=== PATIENT | female | born 1940 | race Caucasian/White ===

== ENCOUNTER → 2016-07-08 | Outpatient (CLI) | payer MEDICARE, MEDICAID | LOC: RAD 08:19 | PROVIDERS: ATTEND Internal Medicine | DX: C34.12 Malignant neoplasm of upper lobe, left bronchus or lung (principal) | CPT/HCPCS: 71260; 74177 ==

== ENCOUNTER → 2016-07-26 | Outpatient (CLI) | payer MEDICARE, MEDICAID | LOC: OD 11:41 | PROVIDERS: ATTEND Family Medicine | DX: J20.9 Acute bronchitis, unspecified (principal) | CPT/HCPCS: 71020 ==

== ENCOUNTER → 2016-08-30 | Outpatient (CLI) | payer MEDICARE, MEDICAID | LOC: RAD 07:04 | PROVIDERS: ATTEND Internal Medicine | DX: C34.12 Malignant neoplasm of upper lobe, left bronchus or lung (principal) | CPT/HCPCS: 71260; 74177 ==

== ENCOUNTER 2016-09-14 13:57 | Emergency (ER) | payer MEDICARE, MEDICAID ==
[2016-09-14] MEDS ORDERED: HYDROCODONE/ACETAMINOPHEN 5-325 MG TABLET PO ONE (14:31)
--- NOTE | 2016-09-14 14:32 | ER Document Report ---
ED Neck/Back Problem - General Chief Complaint: Neck Pain >24hrs old Stated Complaint: PAIN IN NECK Notes: Exacerbation of chronic left neck and shoulder pain started about 4 days ago. Has been worked up in the past with normal x-rays. She is a lung cancer patient not on treatment at this time. TRAVEL OUTSIDE OF THE [place] IN LAST 30 DAYS: No - Related Data Allergies/Adverse Reactions: oxcarbazepine [From Trileptal] Allergy (Mild, Verified 09/14/16 14:12) rash Penicillins Allergy (Mild, Verified 09/14/16 14:12) rash Sulfa (Sulfonamide Antibiotics) Allergy (Mild, Verified 09/14/16 14:12) rash Past Medical History - Social History Family History: Reviewed & Not Pertinent Patient has suicidal ideation: No Patient has homicidal ideation: No - Past Medical History Cardiac Medical History: Reports: Hx Hypertension Denies: Hx Coronary Artery Disease, Hx Heart Attack Pulmonary Medical History: Reports: Hx Asthma, Hx Bronchitis, Hx COPD, Hx Pneumonia Denies: Hx Tuberculosis Neurological Medical History: Denies: Hx Cerebrovascular Accident, Hx Seizures Endocrine Medical History: Denies: Hx Diabetes Mellitus Type 2 Renal/ Medical History: Reports: Hx Kidney Stones. Denies: Hx Peritoneal Dialysis Malignancy Medical History: Reports: Hx Lung Cancer GI Medical History: Reports: Hx Ulcer Musculoskeltal Medical History: Reports Hx Arthritis Psychiatric Medical History: Reports: Hx Depression Infectious Medical History: Past Surgical History: Reports: Hx Appendectomy, Hx Hysterectomy, Hx Orthopedic Surgery - R knee, bilateral hands - Immunizations Hx Pneumococcal Vaccination: 04/12/13 Physical Exam - Vital signs Vitals: Temp Pulse Resp BP Pulse Ox 98.5 F 77 18 151/74 H 93 09/14/16 14:14 09/14/16 14:14 09/14/16 14:14 09/14/16 14:14 09/14/16 14:14 Course - Vital Signs Vital signs: Temp Pulse Resp BP Pulse Ox 98.5 F 77 18 151/74 H 93 09/14/16 14:14 09/14/16 14:14 09/14/16 14:14 09/14/16 14:14 09/14/16 14:14
--- NOTE | 2016-09-14 15:36 | ER Document Report ---
ED Neck/Back Problem - General Chief Complaint: Neck Pain >24hrs old Stated Complaint: PAIN IN NECK Mode of Arrival: Ambulatory Information source: Patient TRAVEL OUTSIDE OF THE [place] IN LAST 30 DAYS: No - HPI Patient complains to provider of: Pain Onset: Other - Chronic Onset: Chronic Timing: Constant Severity: Moderate Context: denies: Became dizzy, Bending, Fainted, Fall/near-fall, Lifting, Seizure, Turning Associated symptoms: Like prior neck/back pain, Radiation to arm. denies: Chest pain, Abdominal pain, Chills, Fever, Incontinence, Motor loss, Numbness/ tingling, Radiation to chest, Radiation to leg, Sensory loss, Sweaty, Unable to urinate, Lower back pain, Upper back pain Exacerbated by: Movement of neck Relieved by: Remaining still Notes: Patient arrives with complaints of left neck and shoulder pain. Patient has a history of chronic pain in this area. She had an MRI within the last few months that showed central narrowing as well as left-sided foraminal narrowing. The patient states her last several days she's had increased pain to the left side of her neck is now going into the shoulder and upper arm. She denies any chest pain or shortness of breath. She denies any abdominal pain. She denies any fever. She denies any headache. She denies any blurred or loss vision. She denies any unilateral numbness tingling or weakness. The pain is worse with any movement of her neck or her left arm. She denies any falls or injuries. She denies fever. She denies IV drug use. She denies blood thinners. She has no other complaints at this time. - Related Data Allergies/Adverse Reactions: oxcarbazepine [From Trileptal] Allergy (Mild, Verified 09/14/16 14:12) rash Penicillins Allergy (Mild, Verified 09/14/16 14:12) rash Sulfa (Sulfonamide Antibiotics) Allergy (Mild, Verified 09/14/16 14:12) rash Past Medical History - Social History Smoking Status: Current Some Day Smoker Frequency of alcohol use: None Drug Abuse: None Family History: Reviewed & Not Pertinent Patient has suicidal ideation: No Patient has homicidal ideation: No - Past Medical History Cardiac Medical History: Reports: Hx Hypertension Denies: Hx Coronary Artery Disease, Hx Heart Attack Pulmonary Medical History: Reports: Hx Asthma, Hx Bronchitis, Hx COPD, Hx Pneumonia Denies: Hx Tuberculosis Neurological Medical History: Denies: Hx Cerebrovascular Accident, Hx Seizures Endocrine Medical History: Denies: Hx Diabetes Mellitus Type 2 Renal/ Medical History: Reports: Hx Kidney Stones. Denies: Hx Peritoneal Dialysis Malignancy Medical History: Reports: Hx Lung Cancer GI Medical History: Reports: Hx Ulcer Musculoskeltal Medical History: Reports Hx Arthritis Psychiatric Medical History: Reports: Hx Depression Infectious Medical History: Past Surgical History: Reports: Hx Appendectomy, Hx Hysterectomy, Hx Orthopedic Surgery - R knee, bilateral hands - Immunizations Hx Diphtheria, Pertussis, Tetanus Vaccination: Yes Hx Pneumococcal Vaccination: 04/12/13 Review of Systems - Review of Systems -: Yes All other systems reviewed and negative Physical Exam - Vital signs Vitals: Temp Pulse Resp BP Pulse Ox 98.5 F 77 18 151/74 H 93 09/14/16 14:14 09/14/16 14:14 09/14/16 14:14 09/14/16 14:14 09/14/16 14:14 - General General appearance: Appears well, Alert - HEENT Head: Normocephalic, Atraumatic Eyes: Normal Extraocular movements intact: Yes Pupils: PERRL Nasal: Normal Mouth/Lips: Normal Mucous membranes: Normal Pharynx: Normal - Respiratory Respiratory status: No respiratory distress Breath sounds: Normal Chest palpation: Normal - Cardiovascular Rhythm: Regular Heart sounds: Normal auscultation Murmur: No Pulses: Normal: Radial Normal capillary refill: Yes - Abdominal Inspection: Normal Tenderness: Nontender - Back Back: Normal, Nontender - Extremities Notes: Patient has tenderness to palpation to the left lateral neck and trapezius muscle. No midline tenderness step-off's or crepitus to palpation. There is no swelling. Has limited range of motion of the neck secondary to pain. Patient also has limited range of motion of the left arm secondary to pain. There is no swelling to the left arm. 5 out of 5 flexion and extension of the upper extremities bilaterally. Normal grasps. Bicep tricep reflexes +2. Normal sensation. - Neurological Neuro grossly intact: Yes Cognition: Normal Orientation: AAOx4 [place] Coma Scale Eye Opening: Spontaneous [place] Coma Scale Verbal: Oriented [place] Coma Scale Motor: Obeys Commands [place] Coma Scale Total: 15 Speech: Normal Cranial nerves: Normal Motor strength normal: LUE, RUE, LLE, RLE Additional motor exam normals: Equal medical support specialist Sensory: Normal Biceps - Reflex grade: 2 = Normal Triceps - Reflex grade: 2 = Normal - Psychological Associated symptoms: Normal affect, Normal mood - Skin Skin Temperature: Warm Skin Moisture: Dry Skin Color: Normal Course - Re-evaluation Re-evalutation: 09/14/16 15:35 Patient's nontoxic appearing with stable vitals. Patient has a history of chronic neck pain. States that this feels like her normal pain only worse. She denies any traumatic injuries. She denies any fevers. She denies blood thinners. She has no sign of cauda equina or epidural abscess or bleed. Patient has no chest pain or shortness of breath. I offered imaging as well as an EKG, the patient declines this at this time. She states that this is her normal pain she has worsened. No fever. The patient will be discharged home with a prescription for Voltaren and [place] with instructions to follow-up with her primary care doctor at the next available appointment. She should follow up sooner if she has increasing pain, fever, severe headache, chest pain, shortness of breath, or any further concerns. The patient is noted to have elevated blood pressure during today's emergency department visit. The patient was informed of this finding. The patient was instructed that this may be related to pre-hypertension and requires further evaluation with a primary care provider. The patient has no hypertensive symptoms at this time. The patient's emergency department workup and current diagnosis were explained to the patient and or family. Follow-up instructions were provided. Medications if prescribed were discussed. Instructions for when to return to the emergency department including specific worrisome symptoms were discussed with the patient and/or family. - Vital Signs Vital signs: Temp Pulse Resp BP Pulse Ox 98.5 F 77 18 151/74 H 93 09/14/16 14:14 09/14/16 14:14 09/14/16 14:14 09/14/16 14:14 09/14/16 14:14 Discharge - Discharge Clinical Impression: Chronic neck pain Condition: Stable Disposition: HOME, SELF-CARE Instructions: Chronic Pain Control ([facility]), Neck Injury (Cervical Strain) ([facility]) Additional Instructions: Take medications as prescribed. Drink plenty fluids. Ice to sore area. Follow -up with your doctor at the next available appointment, sooner for increased pain, fever, numbness, tingling, weakness, headache, blurred vision, numbness, tingling, weakness, chest pain, shortness of breath, any further concerns. Your blood pressure was elevated during today's visit. Have this rechecked with your doctor. The medication you were prescribed today may cause drowsiness. Do not drive or operate heavy machinery while taking this medication. Forms: Elevated Blood Pressure
[2016-09-14 16:28] VITALS: BP 152/75
--- NOTE | 2016-09-14 18:28 | ER Document Report ---
ED Medical Screen (RME) - General Chief Complaint: Neck Pain >24hrs old Stated Complaint: PAIN IN NECK Mode of Arrival: Ambulatory Notes: This 76-year-old female patient comes emergency room with an exacerbation of chronic left neck and shoulder pain that started about 4 days ago. She has been worked up in the past with normal x-rays in the recent past. She is lung cancer patient not on treatment at this time. She is very tender to palpate the left posterior cervical muscles and left trapezius muscles. There is also tender to palpate the anterior and posterior and lateral left shoulder. I have greeted and performed a rapid initial assessment of this patient. A comprehensive ED assessment and evaluation of the patient, analysis of test results and completion of the medical decision making process will be conducted by additional ED providers. TRAVEL OUTSIDE OF THE [place] IN LAST 30 DAYS: No - Related Data Allergies/Adverse Reactions: oxcarbazepine [From Trileptal] Allergy (Mild, Verified 09/14/16 14:12) rash Penicillins Allergy (Mild, Verified 09/14/16 14:12) rash Sulfa (Sulfonamide Antibiotics) Allergy (Mild, Verified 09/14/16 14:12) rash Past Medical History - Social History Frequency of alcohol use: None Drug Abuse: None - Past Medical History Cardiac Medical History: Reports: Hx Hypertension Denies: Hx Coronary Artery Disease, Hx Heart Attack Pulmonary Medical History: Reports: Hx Asthma, Hx Bronchitis, Hx COPD, Hx Pneumonia Denies: Hx Tuberculosis Neurological Medical History: Denies: Hx Cerebrovascular Accident, Hx Seizures Endocrine Medical History: Denies: Hx Diabetes Mellitus Type 2 Renal/ Medical History: Reports: Hx Kidney Stones. Denies: Hx Peritoneal Dialysis Malignancy Medical History: Reports: Hx Lung Cancer GI Medical History: Reports: Hx Ulcer Musculoskeltal Medical History: Reports Hx Arthritis Psychiatric Medical History: Reports: Hx Depression Infectious Medical History: Past Surgical History: Reports: Hx Appendectomy, Hx Hysterectomy, Hx Orthopedic Surgery - R knee, bilateral hands - Immunizations Hx Diphtheria, Pertussis, Tetanus Vaccination: Yes Physical Exam - Vital signs Vitals: Temp Pulse Resp BP Pulse Ox 98.5 F 77 18 151/74 H 93 09/14/16 14:14 09/14/16 14:14 09/14/16 14:14 09/14/16 14:14 09/14/16 14:14 Course - Vital Signs Vital signs: Temp Pulse Resp BP Pulse Ox 98.1 F 75 20 152/75 H 95 09/14/16 16:24 09/14/16 16:24 09/14/16 16:24 09/14/16 16:24 09/14/16 16:24 Doctor's Discharge - Discharge Clinical Impression: Chronic neck pain Condition: Stable Disposition: HOME, SELF-CARE Instructions: Chronic Pain Control ([facility]), Neck Injury (Cervical Strain) ([facility]) Additional Instructions: Take medications as prescribed. Drink plenty fluids. Ice to sore area. Follow -up with your doctor at the next available appointment, sooner for increased pain, fever, numbness, tingling, weakness, headache, blurred vision, numbness, tingling, weakness, chest pain, shortness of breath, any further concerns. Your blood pressure was elevated during today's visit. Have this rechecked with your doctor. The medication you were prescribed today may cause drowsiness. Do not drive or operate heavy machinery while taking this medication. Prescriptions: Diclofenac Sodium [Voltaren] 75 mg PO BID #20 tablet. Hydrocodone/Acetaminophen [[place] 5-325 mg Tablet] 1 tab PO Q4 PRN #12 tablet PRN Reason: Forms: Elevated Blood Pressure Referrals: ELISE GARCIA DO [Primary Care Provider] - Follow up as needed
== END 2016-09-14 16:25 | disposition home or self-care (01) ==
LOC: ER 13:57
DX: G89.29 Other chronic pain (principal); M54.2 Cervicalgia; M25.512 Pain in left shoulder; C34.90 Malignant neoplasm of unspecified part of unspecified bronchus or lung; J44.9 Chronic obstructive pulmonary disease, unspecified; I10 Essential (primary) hypertension; Z88.8 Allergy status to other drugs, medicaments and biological substances; Z88.0 Allergy status to penicillin; Z88.2 Allergy status to sulfonamides
CPT/HCPCS: 99283; A9270

== ENCOUNTER → 2016-10-21 | Outpatient (CLI) | payer MEDICARE, MEDICAID | LOC: OD 12:08 | PROVIDERS: ATTEND Family Medicine | DX: M51.37 Other intervertebral disc degeneration, lumbosacral region (principal) | CPT/HCPCS: 72110 ==

== ENCOUNTER → 2016-10-25 | Outpatient (CLI) | payer MEDICARE, MEDICAID | LOC: RAD 07:37 | PROVIDERS: ATTEND Internal Medicine | DX: C34.12 Malignant neoplasm of upper lobe, left bronchus or lung (principal) | CPT/HCPCS: 71260; 74177 ==

== ENCOUNTER → 2016-12-27 | Outpatient (CLI) | payer MEDICARE, MEDICAID ==
--- NOTE | 2016-12-27 11:49 | RADIOLOGY REPORT (SQ) ---
EXAM DESCRIPTION: CT CHEST WITH; CT ABD/PELVIS WITH IV ONLY COMPLETED DATE/TIME: 12/27/2016 10:25 am REASON FOR STUDY: LUNG CA C34.12 MALIGNANT NEOPLASM OF UPPER LOBE, LEFT BRONCHUS OR CAROLE COMPARISON: Multiple CT chest exams dating back to 2006 Multiple chest abdomen and pelvis exams dating back to 2014 PET-CT 11/22/2013 CONTRAST TYPE AND DOSE: contrast/concentration: Isovue 370.00 mg/ml; Total Contrast Delivered: 83.0 ml; Total Saline Delivered: 68.0 ml RENAL FUNCTION: Creatinine 0.9 TECHNIQUE: CT scan of the chest performed using helical scanning technique with dynamic intravenous contrast injection. Images reviewed with lung, soft tissue and bone windows. Reconstructed coronal a nd sagittal MPR images reviewed. All images stored on PACS. CT scan of the abdomen and pelvis performed with intravenous and without oral contrastusing helical s ceferino technique with dynamic intravenous contrast injection. Images reviewed with lung, soft tissu e and bone windows. Reconstructed coronal and sagittal MPR images reviewed. Delayed images for eval uation of the urinary system also acquired and evaluated. All images stored on PACS. All CT scanners at this facility use dose modulation, iterative reconstruction, and/or weight based d osing when appropriate to reduce radiation dose to as low as reasonably achievable (ALARA). [facility]: Dose Right [facility]: CareDose [facility]: Dose Right [facility]: Teradose 4D [facility]: [employer] RADIATION DOSE: Up-to-date CT equipment and radiation dose reduction techniques were employed. CTDIv ol: 5.5 - 20.4 mGy. DLP: 2701 mGy-cm. . LIMITATIONS: None. FINDINGS: CHEST: LUNGS AND PLEURA: Patient is post stereotactic radiotherapy in the left upper lobe, with radiotherapy markers and bandlike left upper lobe scarring, stable over the series of exams dating back to 2014. There are multiple noncalcified granulomas along the periphery of both lungs, most of which are stabl e compared to 2006, a remainder are stable compared to 2015. Changes of obstructive lung disease at the apices. No pneumothorax or pleural effusions. HILAR AND MEDIASTINAL STRUCTURES: Multiple small aortopulmonary window, prevascular, and pretracheal lymph nodes, stable. Index lymph node is in the sub- carinal region, 2.3 by 1.4 cm in size. This is stable. HEART AND VASCULAR STRUCTURES: No aneurysm or dissection. No central pulmonary emboli. No pericardi al effusion. Heavy coronary artery calcifications. HARDWARE: Left-sided permanent central line tip superior vena cava THYROID AND OTHER SOFT TISSUES: Mild diffuse stable thyromegaly. BONES: No significant finding. OTHER: No other significant finding. ABDOMEN AND PELVIS: LIVER: Normal size. No masses. No dilated ducts. SPLEEN: Normal size. No focal lesions. PANCREAS: No masses. No significant calcifications. No adjacent inflammation or peripancreatic fluid collections. Pancreatic duct not dilated. GALLBLADDER: No identified stones by CT criteria. No inflammatory changes to suggest cholecystitis. ADRENAL GLANDS: No significant masses or asymmetry. Benign 2 cm fatty nodule left adrenal gland unch anged from 2014 RIGHT KIDNEY AND URETER: No solid masses. Multiple right renal cortical cysts, the largest is 5 cm d iameter upper pole right kidney. No significant calcification. No hydronephrosis or hydroureter. LEFT KIDNEY AND URETER: No solid masses. Multiple less than 2 cm left renal cortical cysts. No sign ificant calcification. No hydronephrosis or hydroureter. AORTA AND VESSELS: No aneurysm. No dissection. Renal arteries, SMA, celiac without stenosis. RETROPERITONEUM: No retroperitoneal adenopathy, hemorrhage or masses. BOWEL AND PERITONEAL CAVITY: No masses or inflammatory changes. No free fluid or peritoneal masses. APPENDIX: Not identified, surgically absent ABDOMINAL WALL: No masses. No hernias. BONES: No significant or acute findings. Pelvis: No other significant finding. Post hysterectomy IMPRESSION: No CT findings worrisome for recurrent lung cancer No CT evidence of metastatic disease to the abdomen or pelvis TECHNICAL DOCUMENTATION: JOB ID: [id number] Quality ID # [id number]: Final reports with documentation of one or more dose reduction techniques (e.g., Au tomated exposure control, adjustment of the mA and/or kV according to patient size, use of iterative reconstruction technique) 2010 [employer]- All Rights Reserved
== END ==
LOC: RAD 09:01
PROVIDERS: ATTEND Specialist
DX: C34.12 Malignant neoplasm of upper lobe, left bronchus or lung (principal)
CPT/HCPCS: 71260; 74177

== ENCOUNTER 2017-02-08 08:55 | Outpatient (CLI) | payer MEDICARE, MEDICAID ==
[~2017-02-08 08:55] MED LIST: FERUMOXYTOL (NON-ESRD) 510 MG/NS 100 ML IV PRN; NORMAL SALINE 250 ML IV PRN
[2017-02-08 09:32] VITALS: BP 125/70
== END 2017-02-08 09:49 | disposition home or self-care (01) ==
LOC: II 08:55 → 5TH 09:10 → II 09:49
PROVIDERS: ATTEND Internal Medicine
PROC: 3E033GC Introduction of Other Therapeutic Substance into Peripheral Vein, Percutaneous Approach (ICD-10-PCS; principal; 2017-02-08)
DX: N18.3 Chronic kidney disease, stage 3 (moderate) (principal); D63.1 Anemia in chronic kidney disease
CPT/HCPCS: 96365; Q0138

== ENCOUNTER 2017-02-15 08:42 | Outpatient (CLI) | payer MEDICARE, MEDICAID ==
[2017-02-15 09:24] VITALS: BP 136/53
== END 2017-02-15 10:50 | disposition home or self-care (01) ==
LOC: II 08:42 → 4W 08:52 → II 10:50
PROVIDERS: ATTEND Internal Medicine
DX: D63.1 Anemia in chronic kidney disease (principal); N18.3 Chronic kidney disease, stage 3 (moderate)
CPT/HCPCS: 96365; Q0138; J7050

== ENCOUNTER → 2017-02-17 | Outpatient (CLI) | payer MEDICARE, MEDICAID ==
--- NOTE | 2017-02-17 17:01 | RADIOLOGY REPORT (SQ) ---
EXAM DESCRIPTION: CT CHEST WITH COMPLETED DATE/TIME: 02/17/2017 3:54 pm REASON FOR STUDY: LUNG CA (C34.12) C34.12 MALIGNANT NEOPLASM OF UPPER LOBE, LEFT BRONCHUS OR CAROLE COMPARISON: Multiple CTs from 2017 and 2016, the most recent dated 12/27/2016. TECHNIQUE: CT scan of the chest performed using helical scanning technique with dynamic intravenous contrast injection. Images reviewed with lung, soft tissue and bone windows. Reconstructed coronal and sagittal MPR images reviewed. All images stored on PACS. All CT scanners at this facility use dose modulation, iterative reconstruction, and/or weight based d osing when appropriate to reduce radiation dose to as low as reasonably achievable (ALARA). [facility]: Dose Right [facility]: CareDose [facility]: Dose Right [facility]: Teradose 4D [facility]: [employer] CONTRAST TYPE AND DOSE: contrast/concentration: Isovue mg/ml; Total Contrast Delivered: 83.0 ml; To sandie Saline Delivered: 50.6 ml RENAL FUNCTION: BUN 16 creatinine 0.9. RADIATION DOSE: Up-to-date CT equipment and radiation dose reduction techniques were employed. CTDIv ol: 6.0 - 9.0 mGy. DLP: 1513 mGy-cm. . LIMITATIONS: None. FINDINGS: LUNGS AND PLEURA: Again seen are treatment changes in the left lung with bandlike density and metallic implants. Several subcentimeter subpleural nodules throughout both lungs are unchanged. No new nodules or masses. No pleural effusion or pleural thickening. HILAR AND MEDIASTINAL STRUCTURES: Stable small paratracheal lymph nodes. Subcarinal lymph node previ ously noted is smaller. HEART AND VASCULAR STRUCTURES: No aneurysm or dissection. No central pulmonary emboli. No pericardi al effusion. HARDWARE: Vascular access port. UPPER ABDOMEN: See separate report of the CT of the abdomen. THYROID AND OTHER SOFT TISSUES: No masses. No adenopathy. BONES: No significant finding. OTHER: No other significant finding. IMPRESSION: STABLE CT OF THE CHEST. TREATMENT CHANGES IN THE LEFT LUNG AND MULTIPLE SUBCENTIMETER P LEURAL NODULES, UNCHANGED. NO PROGRESSION OR NEW FINDINGS. TECHNICAL DOCUMENTATION: JOB ID: [id number] Quality ID # [id number]: Final reports with documentation of one or more dose reduction techniques (e.g., Au tomated exposure control, adjustment of the mA and/or kV according to patient size, use of iterative reconstruction technique) 2010 [employer]- All Rights Reserved
--- NOTE | 2017-02-17 17:18 | RADIOLOGY REPORT (SQ) ---
EXAM DESCRIPTION: CT ABD/PELVIS WITH IV ONLY COMPLETED DATE/TIME: 02/17/2017 3:54 pm REASON FOR STUDY: LUNG CA (C34.12) C34.12 MALIGNANT NEOPLASM OF UPPER LOBE, LEFT BRONCHUS OR CAROLE COMPARISON: 12/27/2016 TECHNIQUE: CT scan of the abdomen and pelvis performed using helical scanning technique with dynamic intravenous contrast injection. No oral contrast. Images reviewed with lung, soft tissue, and bone windows. Reconstructed coronal and sagittal MPR images reviewed. Delayed images for evaluation of the urinary system also acquired. All images stored on PACS. All CT scanners at this facility use dose modulation, iterative reconstruction, and/or weight based d osing when appropriate to reduce radiation dose to as low as reasonably achievable (ALARA). [facility]: Dose Right [facility]: CareDose [facility]: Dose Right [facility]: Teradose 4D [facility]: [employer] CONTRAST TYPE AND DOSE: 83 cc Isovue 370- low osmolar. RENAL FUNCTION: Creatinine 0.9 BUN 16 RADIATION DOSE: Total exam DLP: 1513 mGy cm. LIMITATIONS: None. FINDINGS: LOWER CHEST: See separate report of the CT of the chest. LIVER: Normal size. No masses. No dilated ducts. SPLEEN: Normal size. No focal lesions. PANCREAS: No masses. No significant calcifications. No adjacent inflammation or peripancreatic fluid collections. Pancreatic duct not dilated. GALLBLADDER: No identified stones by CT criteria. No inflammatory changes to suggest cholecystitis. ADRENAL GLANDS: 2 cm fat density left adrenal nodule is stable. RIGHT KIDNEY AND URETER: No solid masses. Multiple cortical cysts. No significant calcifications. No hydronephrosis or hydroureter. LEFT KIDNEY AND URETER: No solid masses. Several small cortical cysts are present. No significant calcifications. The left renal pelvis is prominent but there is no true hydronephrosis. AORTA AND VESSELS: No aneurysm or dissection. Atherosclerosis. Plaques are present at the origins o f the major arteries. RETROPERITONEUM: No retroperitoneal adenopathy, hemorrhage or masses. BOWEL AND PERITONEAL CAVITY: No masses or inflammatory changes. No free fluid or peritoneal masses. APPENDIX: Not identified. PELVIS: Uterus is absent. There is no adnexal mass or fluid collection. ABDOMINAL WALL: No masses. No hernias. BONES: No significant or acute findings. OTHER: No other significant finding. IMPRESSION: 1. Stable left adrenal fat density nodule. 2. Renal cysts with no suspicious solid masses. 3. No abdominal or pelvic metastases. TECHNICAL DOCUMENTATION: JOB ID: [id number] Quality ID # [id number]: Final reports with documentation of one or more dose reduction techniques (e.g., Au tomated exposure control, adjustment of the mA and/or kV according to patient size, use of iterative reconstruction technique) 2010 [employer]- All Rights Reserved
== END ==
LOC: RAD 14:26
PROVIDERS: ATTEND Internal Medicine
DX: C34.12 Malignant neoplasm of upper lobe, left bronchus or lung (principal)
CPT/HCPCS: 71260; 74177

== ENCOUNTER → 2017-02-27 | Outpatient (CLI) | payer MEDICARE, MEDICAID ==
--- NOTE | 2017-03-02 17:13 | WOMENS IMAGING REPORT ---
EXAM DESCRIPTION: BILAT SCREENING MAMMO W/CAD COMPLETED DATE/TIME: 02/27/2017 12:32 pm REASON FOR STUDY: SCREENING MAMMO Z12.31 ENCNTR SCREEN MAMMOGRAM FOR MALIGNANT NEOPLASM OF HERIBERTO COMPARISON: 2007, 2005 TECHNIQUE: Standard craniocaudal and mediolateral oblique views of each breast recorded using Concuitya l acquisition. LIMITATIONS: None. FINDINGS: RIGHT BREAST MASSES: No suspicious masses. CALCIFICATIONS: No new or suspicious calcifications. ARCHITECTURAL DISTORTION: None. DEVELOPING DENSITY: None. ASYMMETRY: None noted. OTHER: No other significant findings. LEFT BREAST MASSES: Since the prior studies, patient has developed a 1.5 x 1 cm nodule in the left breast lower i nner quadrant about 3 cm from the nipple. 90 mediolateral view, cone compression in the CC and mL v iews ultrasound are recommended followup. CALCIFICATIONS: No new or suspicious calcifications. ARCHITECTURAL DISTORTION: None. DEVELOPING DENSITY: None. ASYMMETRY: None noted. OTHER: No other significant findings. Read with the assistance of CAD. .[facility] - R2 Cenova Version 1.3 .[facility] Imaging - R2 Cenova Version 1.3 .[facility] - R2 Cenova Version 2.4 .[facility] [place] - R2 Cenova Version 2.4 .[facility] - R2 Energy Control Officer Version 9.2 IMPRESSION: No mammographic evidence for malignancy right breast. Nodule left breast lower inner quadrant for which additional diagnostic mammograms and ultrasound are recommended for followup BREAST DENSITY: b. There are scattered areas of fibroglandular density. BIRAD: 0 Incomplete: Needs Additional Imaging Evaluation and/or prior Mammograms for Comparison. RECOMMENDATION: RECOMMENDED FOLLOW-UP: Additional left breast diagnostic mammograms and ultrasound The patient will be contacted for additional imaging. COMMENT: The patient has been notified of the results by letter per [place] requirements. Additional no tification policies are in place for contacting patient with suspicious or incomplete findings. Quality ID #[id number]: The [employer] recommends an annual screening mammogram for women aged 40 years or over. This facility utilizes a reminder system to ensure that all patients receive reminder letters, and/or direct phone calls for appointments. This includes reminders for routine scr eening mammograms, diagnostic mammograms, or other Breast Imaging Interventions when appropriate. Th is patient will be placed in the appropriate reminder system. The [employer] (ACR) has developed recommendations for screening MRI of the breast s in certain patient populations, to be used in conjunction with mammography. Breast MRI surveillanc e may be appropriate for women with more than 20% lifetime risk of developing breast cancer as deter mined by genetic testing, significant family history of the disease, or history of mantle radiation f or Hodgkins Disease. ACR Practice Guidelines 2008. TECHNICAL DOCUMENTATION: FINDING NUMBER: (1) ASSESSMENT: (1) JOB ID: [id number] [employer]- All Rights Reserved
== END ==
LOC: WI 09:54
PROVIDERS: ATTEND Family Medicine
DX: Z12.31 Encounter for screening mammogram for malignant neoplasm of breast (principal)
CPT/HCPCS: 77067; G0202

== ENCOUNTER → 2017-03-16 | Outpatient (CLI) | payer MEDICARE, MEDICAID ==
--- NOTE | 2017-03-16 16:35 | RADIOLOGY REPORT (SQ) ---
EXAM DESCRIPTION: LUMBAR SPINE COMPLETE COMPLETED DATE/TIME: 03/16/2017 1:53 pm REASON FOR STUDY: LOW BACK PAIN M54.5 LOW BACK PAIN R07.81 PLEURODYNIA COMPARISON: Lumbar spine five views 10/21/2016 CT abdomen pelvis 02/17/2017 NUMBER OF VIEWS: Five views including obliques. TECHNIQUE: AP, lateral, oblique, and sacral radiographic images acquired of the lumbar spine. LIMITATIONS: None. FINDINGS: MINERALIZATION: Osteoporotic SEGMENTATION: Normal. No transitional anatomy. ALIGNMENT: Normal. VERTEBRAE: Maintained height. No fracture or worrisome bone lesion. DISCS: Disc space loss of height at L4-5 POSTERIOR ELEMENTS: Bilateral facet arthropathy at L5-S1 and L4-5 left greater than right. HARDWARE: None in the spine. PARASPINAL SOFT TISSUES: Normal. PELVIS: Not included in the field of view OTHER: No other significant finding. IMPRESSION: No lumbar spine compression deformity. Degenerative disc space loss of height at L4-5. Bilateral L4-5 and L5-S1 facet arthropathy TECHNICAL DOCUMENTATION: JOB ID: [id number] [employer]- All Rights Reserved
--- NOTE | 2017-03-16 16:37 | RADIOLOGY REPORT (SQ) ---
EXAM DESCRIPTION: RIBS RIGHT W/PA CHEST COMPLETED DATE/TIME: 03/16/2017 1:53 pm REASON FOR STUDY: PLEURODYNIA M54.5 LOW BACK PAIN R07.81 PLEURODYNIA COMPARISON: None. Multiple chest CTs. TECHNIQUE: Frontal view of the chest and additional views of the right ribs acquired. NUMBER OF VIEWS: Five view. LIMITATIONS: None. FINDINGS: FRONTAL CXR: No pneumothorax. Chronic changes in the left lung. RIBS: No displaced rib fractures. No lytic or blastic bony lesions. OTHER: Left-sided port with tip overlying SVC. IMPRESSION: NO PNEUMOTHORAX. NO DISPLACED RIB FRACTURES. COMMENT: SITE OF TRAUMA/COMPLAINT MARKED/STAMP COMPLETED: YES. TECHNICAL DOCUMENTATION: JOB ID: [id number] [employer]- All Rights Reserved
== END ==
LOC: OD 13:12
PROVIDERS: ATTEND Physician Assistant
DX: M54.5 Low back pain (principal); R07.81 Pleurodynia
CPT/HCPCS: 72110

== ENCOUNTER → 2017-03-16 | Outpatient (CLI) | payer MEDICARE, MEDICAID ==
--- NOTE | 2017-03-17 17:13 | WOMENS IMAGING REPORT ---
EXAM DESCRIPTION: LEFT DIAGNOSTIC MAMMO W/CAD; U/S BREAST UNILAT LIMITED COMPLETED DATE/TIME: 03/16/2017 12:35 pm; 03/16/2017 1:17 pm REASON FOR STUDY: LUMP; N63; LT BREAST LUMP N63 N63 UNSPECIFIED LUMP IN BREAST COMPARISON: Mammograms 02/27/2017 TECHNIQUE: Cone compression craniocaudal and mediolateral oblique images of the left breast recorded with digital acquisition. Left breast 90 mediolateral view. Left breast ultrasound was also performed. LIMITATIONS: None. FINDINGS: BREAST: Left MASSES: In the left periareolar region medially, at about the 7 to 8 o'clock position a mammographic nodule 1.3 x 1.1 x 1 cm in size is present with lobular borders. CALCIFICATIONS: No new or suspicious calcifications. ARCHITECTURAL DISTORTION: None. DEVELOPING DENSITY: None. ASYMMETRY: None noted. OTHER: No other significant findings. Read with the assistance of CAD. .[facility] - R2 Cenova Version 1.3 .[facility] Imaging - R2 Cenova Version 1.3 .[facility] - R2 Cenova Version 2.4 .[facility] R2 Cenova Version 2.4 .[facility] - R2 Mixing Tank Operator Version 9.2 Left breast ultrasound: Ultrasound of the left breast lower inner quadrant demonstrates a mixed cyst ic and solid nodule with internal color flow and calcifications in the 7 to 8 o'clock position which correlates with the mammographic findings. This measures 1.3 x 1.1 x 1 cm in size. There is an liss cent dilated duct. This is worrisome for a malignant nodule or papilloma. Ultrasound-guided core bi opsy and post biopsy clip placement is recommended, with immediate follow-up two-view mammogram. IMPRESSION: Solid nodule in the lower inner quadrant left breast worrisome for malignancy. Ultrasou nd-guided core biopsy, post biopsy clip placement and follow-up two-view mammogram recommended BREAST DENSITY: b. There are scattered areas of fibroglandular density. BIRAD: 4 Suspicious. Biopsy should be considered. RECOMMENDATION: RECOMMENDED FOLLOW UP: Left breast ultrasound-guided core biopsy and post biopsy cli p placement with follow-up two-view mammogram SPECIFIC INTERVENTION/IMAGING/CONSULTATION RECOMMENDED:No additional intervention/ imaging/consultati on needed at this time. COMMUNICATION:Patient notified by letter COMMENT: The patient has been notified of the results by letter per [place] requirements. Additional no tification policies are in place for contacting patient with suspicious or incomplete findings. Quality ID #[id number]: The [employer] recommends an annual screening mammogram for women aged 40 years or over. This facility utilizes a reminder system to ensure that all patients receive reminder letters, and/or direct phone calls for appointments. This includes reminders for routine scr eening mammograms, diagnostic mammograms, or other Breast Imaging Interventions when appropriate. Th is patient will be placed in the appropriate reminder system. The [employer] (ACR) has developed recommendations for screening MRI of the breast s in certain patient populations, to be used in conjunction with mammography. Breast MRI surveillanc e may be appropriate for women with more than 20% lifetime risk of developing breast cancer as deter mined by genetic testing, significant family history of the disease, or history of mantle radiation f or Hodgkins Disease. ACR Practice Guidelines 2008. TECHNICAL DOCUMENTATION: FINDING NUMBER: (1) ASSESSMENT: (1) JOB ID: [id number] [employer]- All Rights Reserved
--- NOTE | 2017-03-17 17:13 | WOMENS IMAGING REPORT ---
EXAM DESCRIPTION: LEFT DIAGNOSTIC MAMMO W/CAD; U/S BREAST UNILAT LIMITED COMPLETED DATE/TIME: 03/16/2017 12:35 pm; 03/16/2017 1:17 pm REASON FOR STUDY: LUMP; N63; LT BREAST LUMP N63 N63 UNSPECIFIED LUMP IN BREAST COMPARISON: Mammograms 02/27/2017 TECHNIQUE: Cone compression craniocaudal and mediolateral oblique images of the left breast recorded with digital acquisition. Left breast 90 mediolateral view. Left breast ultrasound was also performed. LIMITATIONS: None. FINDINGS: BREAST: Left MASSES: In the left periareolar region medially, at about the 7 to 8 o'clock position a mammographic nodule 1.3 x 1.1 x 1 cm in size is present with lobular borders. CALCIFICATIONS: No new or suspicious calcifications. ARCHITECTURAL DISTORTION: None. DEVELOPING DENSITY: None. ASYMMETRY: None noted. OTHER: No other significant findings. Read with the assistance of CAD. .[facility] - R2 Cenova Version 1.3 .[facility] Imaging - R2 Cenova Version 1.3 .[facility] - R2 Cenova Version 2.4 .[facility] - R2 Cenova Version 2.4 .[facility] - R2 San[employer] Worker Cleaning Machinery Version 9.2 Left breast ultrasound: Ultrasound of the left breast lower inner quadrant demonstrates a mixed cyst ic and solid nodule with internal color flow and calcifications in the 7 to 8 o'clock position which correlates with the mammographic findings. This measures 1.3 x 1.1 x 1 cm in size. There is an liss cent dilated duct. This is worrisome for a malignant nodule or papilloma. Ultrasound-guided core bi opsy and post biopsy clip placement is recommended, with immediate follow-up two-view mammogram. IMPRESSION: Solid nodule in the lower inner quadrant left breast worrisome for malignancy. Ultrasou nd-guided core biopsy, post biopsy clip placement and follow-up two-view mammogram recommended BREAST DENSITY: b. There are scattered areas of fibroglandular density. BIRAD: 4 Suspicious. Biopsy should be considered. RECOMMENDATION: RECOMMENDED FOLLOW UP: Left breast ultrasound-guided core biopsy and post biopsy cli p placement with follow-up two-view mammogram SPECIFIC INTERVENTION/IMAGING/CONSULTATION RECOMMENDED:No additional intervention/ imaging/consultati on needed at this time. COMMUNICATION:Patient notified by letter COMMENT: The patient has been notified of the results by letter per MQSA requirements. Additional no tification policies are in place for contacting patient with suspicious or incomplete findings. Quality ID #[id number]: The [employer] recommends an annual screening mammogram for women aged 40 years or over. This facility utilizes a reminder system to ensure that all patients receive reminder letters, and/or direct phone calls for appointments. This includes reminders for routine scr eening mammograms, diagnostic mammograms, or other Breast Imaging Interventions when appropriate. Th is patient will be placed in the appropriate reminder system. The [employer] (ACR) has developed recommendations for screening MRI of the breast s in certain patient populations, to be used in conjunction with mammography. Breast MRI surveillanc e may be appropriate for women with more than 20% lifetime risk of developing breast cancer as deter mined by genetic testing, significant family history of the disease, or history of mantle radiation f or Hodgkins Disease. ACR Practice Guidelines 2008. TECHNICAL DOCUMENTATION: FINDING NUMBER: (1) ASSESSMENT: (1) JOB ID: [id number] [employer]- All Rights Reserved
== END ==
LOC: WI 15:19
PROVIDERS: ATTEND Family Medicine
DX: N63.20 Unspecified lump in the left breast, unspecified quadrant (principal)
CPT/HCPCS: 76642; G0206

== ENCOUNTER 2017-03-17 12:48 | Inpatient (IN) | payer MEDICARE, MEDICAID ==
[2017-03-17 14:41] LABS: APPEARANCE,URINE CLEAR; BILIRUBIN,URINE NEGATIVE (NEGATIVE); GLUCOSE, URINE NEGATIVE (NEGATIVE); KETONES,URINE NEGATIVE (NEGATIVE); LEUKOCYTE ESTERASE,URINE NEGATIVE (NEGATIVE); NITRITE,URINE NEGATIVE (NEGATIVE); PROTEIN,URINE NEGATIVE (NEGATIVE); URINE SPECIFIC GRAVITY 1.006; UROBILINOGEN,URINE NEGATIVE mg/dL (<2.0)
--- NOTE | 2017-03-17 14:42 | ER Document Report ---
ED General - General Chief Complaint: Pain All Over Stated Complaint: WEAKNESS Time Seen by Provider: 03/17/17 13:46 Mode of Arrival: Medic Information source: Patient, Relative, Emergency Med Personnel, [facility] Records Notes: This is 76-year-old female patient who lives alone complains of aching all over particularly right ribs and right low back for the past 2 days. She fell 2 times today at home. She reports following a total of 6 times this week. She did have outpatient x-rays of her ribs and lumbar back yesterday which were unremarkable. Her daughter called to check on her today and noted that her voice was a little slurred and she seemed a little confused compared to baseline. The patient does drive herself around normally. The patient has a history of hypertension, ulcers, osteoarthritis, renal stones , COPD, depression, and has had stage IV lung cancer currently in remission after chemotherapy. There never were metastases to the brain by history. TRAVEL OUTSIDE OF THE [place] IN LAST 30 DAYS: No - Related Data Allergies/Adverse Reactions: oxcarbazepine [From Trileptal] Allergy (Mild, Verified 03/17/17 13:26) rash Penicillins Allergy (Mild, Verified 03/17/17 13:26) rash Sulfa (Sulfonamide Antibiotics) Allergy (Mild, Verified 03/17/17 13:26) rash Past Medical History - General Information source: Patient, Relative, Emergency Med Personnel, [facility] Records - Social History Smoking Status: Current Every Day Smoker Cigarette use (# per day): Yes Chew tobacco use (# tins/day): No Smoking Education Provided: No Frequency of alcohol use: None Drug Abuse: None Occupation: Retired Lives with: Alone Family History: Reviewed & Not Pertinent Patient has suicidal ideation: No Patient has homicidal ideation: No - Past Medical History Cardiac Medical History: Reports: Other - Pt's daughter reports pt's blood pressure generally runs about 110 systolic Denies: Hx Hypertension Pulmonary Medical History: Reports: Hx Asthma, Hx Bronchitis, Hx COPD, Hx Pneumonia EENT Medical History: Reports: None Neurological Medical History: Reports: None Endocrine Medical History: Reports: None Renal/ Medical History: Reports: Hx Kidney Stones Malignancy Medical History: Reports: Hx Lung Cancer - Stage IV lung cancer, treated by chemotherapy. Currently in remission. GI Medical History: Reports: Hx Ulcer Musculoskeltal Medical History: Reports Hx Arthritis Psychiatric Medical History: Reports: Hx Depression Infectious Medical History: Past Surgical History: Reports: Hx Appendectomy, Hx Hysterectomy, Hx Orthopedic Surgery - R knee, bilateral hands - Immunizations Hx Diphtheria, Pertussis, Tetanus Vaccination: Yes Hx Pneumococcal Vaccination: 04/12/13 Review of Systems - Review of Systems Constitutional: No symptoms reported EENT: No symptoms reported Cardiovascular: See HPI Respiratory: See HPI Gastrointestinal: No symptoms reported Genitourinary: No symptoms reported Female Genitourinary: Post menopausal Musculoskeletal: See HPI Skin: No symptoms reported Hematologic/Lymphatic: No symptoms reported Neurological/Psychological: See HPI Physical Exam - Vital signs Vitals: Resp Pulse Ox 15 93 03/17/17 13:23 03/17/17 13:23 Interpretation: Normal - General General appearance: Appears well, Alert In distress: None - HEENT Head: Normocephalic, Atraumatic Eyes: Normal Pupils: PERRL Mucous membranes: Dry Pharynx: Normal Neck: Normal - Respiratory Respiratory status: No respiratory distress Breath sounds: Other - Coarse breath sounds consistent with history of COPD - Cardiovascular Rhythm: Regular Heart sounds: Normal auscultation Murmur: No - Abdominal Inspection: Normal Bowel sounds: Normal Tenderness: Nontender - Back Back: Tender - Very tender to palpate the right lateral lumbar back region. - Extremities General upper extremity: Normal inspection General lower extremity: Normal inspection - Neurological Notes: There is no motor deficit noted. The patient does seem to be a little confused , and her speech is slightly slurred or thick. Her daughter reports that this is slightly different from her normal baseline where she takes care of herself and drives and is normally quite alert and oriented. She is still able to crack jokes and interact. - Psychological Associated symptoms: Normal affect, Normal mood - Skin Skin Temperature: Warm Skin Moisture: Dry Skin Color: Normal Course - Re-evaluation Re-evalutation: 03/17/17 15:47 The patient's creatinine is 3.39 with a BUN of 56. He has not had any chemistries at this facility since September 2014 when they were quite normal. Her son-in-law was able to find some old records showing a lab work done in November 2015 with a creatinine of 0.88 I have not yet been able to get through to her primary care provider's office, her oncologist signed out for the weekend early this morning. I have a call into her commercial lender to see if he may have some records. 03/17/17 16:16 Dr. Gracia called me back from [facility], he checked to his office records and found the patient had a creatinine of 1.3 less than a month ago. - Vital Signs Vital signs: Temp Pulse Resp BP Pulse Ox 97.7 F 13 124/62 91 L 03/17/17 13:24 03/17/17 16:01 03/17/17 16:01 03/17/17 16:01 - Laboratory Result Diagrams: 03/17/17 14:31 03/17/17 14:31 Laboratory results interpreted by me: 03/17/17 03/17/17 14:31 14:31 RBC 3.13 L Hgb 9.5 L Hct 28.5 L RDW 15.4 H Lymphocytes % 9.2 L Eosinophils % 8.8 H BUN 56 H Creatinine 3.39 H Est GFR ( Amer) 16 L Est GFR (Non-Af Amer) 13 L - Diagnostic Test Radiology reviewed: Reports reviewed - The patient had outpatient x-rays of her lumbar back and ribs yesterday which did not show acute process. - Consults Dr. Mackay Time consulted: 16:35 Consulted provider: will come to ER - Telemetry admission Discharge - Discharge Clinical Impression: Dehydration, Frequent falls Acute renal failure Qualifiers: Acute renal failure type: unspecified Qualified Code(s): N17.9 - Acute kidney failure, unspecified Lumbar contusion Qualifiers: Encounter type: initial encounter Qualified Code(s): S30.0XXA - Contusion of lower back and pelvis, initial encounter Anemia Qualifiers: Anemia type: iron deficiency Iron deficiency anemia type: unspecified iron deficiency Qualified Code(s): D50.9 - Iron deficiency anemia, unspecified Condition: Stable Disposition: ADMITTED INPATIENT Admitting Provider: Hospitalist Unit Admitted: Telemetry Referrals: ELISE GARCIA DO [Primary Care Provider] - Follow up as needed
[2017-03-17 14:52] LABS: ABSOLUTE EOSINOPHILS # (AUTO) 0.6 10^3/uL (0.0-0.6); ABSOLUTE LYMPHOCYTES (AUTO) 0.6 10^3/uL (0.5-4.7); ABSOLUTE MONOCYTES (AUTO) 0.4 10^3/uL (0.1-1.4); ABSOLUTE NEUT (AUTO) 4.9 10^3/uL (1.7-8.2); BASOPHILS % (AUTO) 0.5 % (0-2); EOSINOPHILS % (AUTO) 8.8 % (0-6); HEMATOCRIT 28.5 % (36.0-47.0); HEMOGLOBIN 9.5 g/dL (12.0-15.5); LYMPHOCYTES % (AUTO) 9.2 % (13-45); MEAN CORPUSCULAR HEMOGLOBIN 30.3 pg (27.0-33.4); MEAN CORPUSCULAR HGB CONC 33.3 g/dL (32.0-36.0); MEAN CORPUSCULAR VOLUME 91 fl (80-97); MONOCYTES % (AUTO) 6.6 % (3-13); RED BLOOD COUNT 3.13 10^6/uL (3.72-5.28); RED CELL DISTRIBUTION WIDTH 15.4 % (11.5-14.0); SEGMENTED NEUTROPHILS % (AUTO) 74.9 % (42-78); WHITE BLOOD COUNT 6.5 10^3/uL (4.0-10.5)
[2017-03-17 15:10] LABS: ALANINE AMINOTRANSFERASE 24 U/L (9-52); ALBUMIN 3.9 g/dL (3.5-5.0); ALKALINE PHOSPHATASE 88 U/L (38-126); ANION GAP 14 (5-19); ASPARTATE AMINO TRANSFERASE 18 U/L (14-36); BILIRUBIN,DIRECT 0.4 mg/dL (0.0-0.4); BILIRUBIN,TOTAL 0.4 mg/dL (0.2-1.3); BLOOD UREA NITROGEN 56 mg/dL (7-20); CALCIUM 9.3 mg/dL (8.4-10.2); CARBON DIOXIDE 26 mmol/L (22-30); CHLORIDE 105 mmol/L (98-107); CREATININE RESULT 3.39 mg/dL (0.52-1.25); GLUCOSE 93 mg/dL (75-110); POTASSIUM 4.4 mmol/L (3.6-5.0); SODIUM 144.7 mmol/L (137-145); TOTAL PROTEIN 6.9 g/dL (6.3-8.2)
[2017-03-17] MEDS ORDERED: NORMAL SALINE 1000 ML 1,000 ML IV ONE (15:37)
[2017-03-17] MEDS ORDERED: ACETAMINOPHEN 325 MG TABLET PO PRN (17:42)
[2017-03-17] MEDS ORDERED: LEVALBUTEROL HCL NEB 1.25 MG/3 ML AMPUL NEB PRN (17:42)
[2017-03-17] MEDS ORDERED: NORMAL SALINE 1000 ML 1,000 ML IV PRN (17:42)
[2017-03-17] MEDS ORDERED: NICOTINE 14 MG/24 HR PATCH.TD24 TD PRN (17:52)
[2017-03-17] MEDS ORDERED: DEXTROSE 40% GEL 15 GM TUBE PO PRN ×2 (18:14)
[2017-03-17] MEDS ORDERED: INSULIN LISPRO 100 UNIT/ML 3 ML VIAL SUBCUT PRN (18:14)
[2017-03-17] MEDS ORDERED: DEXTROSE 50%-WATER 25 GM/50 ML DISP.SYRIN IV PRN ×2 (18:14)
[2017-03-17] MEDS ORDERED: GLUCAGON,HUMAN RECOMB 1 MG INJ IM PRN (18:14)
[2017-03-17 19:09] LABS: CREATINE KINASE MB 0.62 ng/mL (<4.55)
[2017-03-17 19:13] LABS: TROPONIN I < 0.012 ng/mL
[2017-03-17 19:29] LABS: FREE T3 4.06 pg/mL (2.77-5.27); THYROID STIMULATING HORMONE < 0.01 uIU/mL (0.47-4.68)
--- NOTE | 2017-03-17 19:53 | HISTORY AND PHYSICAL E ---
History and Physical NAME: TAINA MONTEJO : 1940 AGE: 76Y ADMITTED: 03/17/2017 ROOM: ED15 CHIEF COMPLAINT: Weakness and falls. HISTORY OF PRESENT ILLNESS: The patient is a 76-year-old female with an extensive past medical history, who presented to the emergency department after falling several times over the past week. The patient reports that she was having significant back pain after falling yesterday and took everything that she could get [id number] including ibuprofen, Aleve, and topical patches for pain from [id number]. The patient had been also prescribed Percocet and took this as well. The patient reports then that today she began having some trembling. She reports that she does have significant sinus drainage, nausea, and has a chronic cough secondary to her underlying history of small cell lung cancer. The patient reports that the Percocet is her only new medication that she is aware of. The patient is referred to the hospitalist service for acute renal failure. 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 PAST SURGICAL HISTORY: Lithotripsy, appendectomy, tonsillectomy, knee surgery, port placement, hysterectomy, bladder tack, and 4 surgeries for adhesions. FAMILY HISTORY: Her father of cirrhosis secondary to alcohol use and her mother of complications of diabetes mellitus from renal failure. There is also a family history of prostate cancer. SOCIAL HISTORY: The patient is a current half-a-pack per day smoker. She denies alcohol, denies illicit drugs. She does live alone. ALLERGIES: 1. PENICILLIN. 2. TRILEPTAL. 3. SULFA. HOME MEDICATIONS: Currently being reconciled and are unavailable at this time but include after review: 1. Gabapentin. 2. Lamotrigine. 3. Singulair. 4. Metformin. 5. Isosorbide. 6. Carbamazepine. 7. Tekturna. 8. Crestor. 9. Methimazole. 10. Lisinopril. 11. Verapamil. 12. Zyrtec. 13. Prilosec. 14. Tessalon Perles. 15. Phenergan. 16. Now Percocet. CODE STATUS: FULL CODE. Her daughter is her surrogate decision maker. REVIEW OF SYSTEMS: CONSTITUTIONAL: The patient denies anorexia, admits to chills, fatigue, denies fever, headaches, night sweats, weight loss or weight gain. HEENT: Eyes: Denies visual disturbance. Ears: Denies hearing changes. Nose, mouth and throat: Denies headache, mouth pain, sore throat, vertigo. CARDIOVASCULAR: Denies chest pain, dyspnea on exertion, edema, orthopnea or palpitations. RESPIRATORY: Denies cough, dyspnea, hemoptysis or sputum production. The patient does have a chronic cough but this is not worse than normal. GASTROINTESTINAL: Denies abdominal pain, bloating, constipation, diarrhea, dysphagia, heartburn, hematemesis, hematochezia or melena. The patient admits to nausea and admits to prior history of C. difficile colitis. GENITOURINARY: Denies difficulty urinating, dysuria, hematuria or nocturia. MUSCULOSKELETAL: Admits to back pain. Denies joint swelling or deformity. INTEGUMENTARY: Denies rash, lesions or wounds. NEUROLOGIC: Denies numbness, dizziness, dysphasia, dysarthria or ataxia. PSYCHIATRIC: Denies depression, anxiety, hallucinations, delusions, SI or HI. ENDOCRINE: Admits to cold intolerance and polydipsia. Denies polyphagia or polyuria. LYMPHATICS: Admits to easy bleeding and bruising. ALLERGIES: Admits to seasonal rhinorrhea. PHYSICAL EXAMINATION: GENERAL: The patient is a well-fed, well-nourished, female who is in no acute respiratory distress. VITAL SIGNS: Temperature is 97.7, pulse of 87, blood pressure of 111/59, respiratory rate was 19, saturation of 91%. HEENT: The patient is atraumatic, normocephalic. Pupils are equal, round and reactive to light and accommodation. Extraocular movements are intact. She has no scleral icterus. Her mucosa is slightly dry. NECK: Supple. She has significant thyromegaly. She has no lymphadenopathy. Trachea midline. RESPIRATORY: She has prolonged expiratory phase. Unlabored without accessory muscle use. Occasional scattered crackles but otherwise no wheezes, rhonchi or rales. CARDIOVASCULAR: Regular rate and rhythm without appreciable rub or gallop. She has a normal S1,S2 and has a II/ systolic murmur best heard in the apex. Pulses bilaterally are equal and 2+/4 dorsalis pedis and normal radial pulses. GASTROINTESTINAL: Her abdomen is soft, nontender to palpation, nondistended with active bowel sounds. She has a negative [place] sign. RECTAL: Deferred. GENITOURINARY: Deferred. EXTREMITIES: Reveal no cyanosis, mild clubbing and no edema. MUSCULOSKELETAL: Reveals no overt deformity. NEUROLOGIC: She is awake, alert and oriented to person, place, time and situation. Cranial nerves are grossly intact. PSYCHIATRIC: The patient is awake, alert and oriented and she appears to have an increase in psychomotor activity with pressured speech. SKIN: Reveals multiple ecchymoses secondary to prior falls and occasional skin tear. LABORATORY VALUES: White count of 6.5, hemoglobin 9.5, hematocrit 28.5 and platelets of 167. Sodium 145, potassium 4.4, chloride 105, CO2 of 26, BUN of 56, creatinine 3.39, glucose of 93, calcium of 9.3, total bilirubin 0.4, direct 0.4, AST 18, ALT 24, alkaline phosphatase 88, total protein 6.9, albumin 3.9. Urine reveals a specific gravity of 1.006, only 1 white cell, 5 hyaline casts, rare mucus. The patient underwent mammography which reveals a 1.3 x 1.1 x 1 cm cystic nodule in the left lower inner quadrant of her left breast that is worrisome for malignancy. The patient underwent on 03/16/2017 x-ray of her ribs which was negative and lumbar spine which revealed bilateral L4-5 and L5-S1 facet arthropathy. IMPRESSION: This is a 76-year-old female with: 1. Acute renal failure. 2. Chronic anemia likely secondary to anemia of chronic disease due to underlying malignancy. 3. Non-small cell lung cancer. 4. COPD. 5. DJD. 6. Diabetes mellitus. 7. Tic douloureux. 8. Hyperlipidemia. 9. TOÑA. 10. Hyperthyroidism. 11. 02 dependent COPD. 12. Chronic hypoxemic respiratory failure. 13. Tobacco abuse. PLAN: 1. For patient's acute renal failure, at this time due to patient's differential revealing that her eosinophils are slightly high, we will check a urine eosinophil. I suspect that this is likely secondary to dehydration, [id number] analgesic use and concurrent use of her medications. We will stop her Tekturna and hold her lisinopril. We will stop her metformin. We will also check a carbamazepine level for this patient. The patient does have a prior history of C. difficile colitis and we will check a PCR to see if patient has active disease. She does report her last stool was kind of soft. 2. For her seasonal rhinitis, we will continue Claritin and Flonase. 3. For her tobacco abuse, we will give her a nicotine patch p.r.n. 4. For her congestive heart failure, we will be judicious in administration of fluids and we will obtain her echo most recently from her inside sales account manager, Dr. Munzo. 5. For her hyperlipidemia, we will hold her Crestor and check a CPK. 6. For patient's breast mass, this has already been shown to be concerning for malignancy and she does have an underlying prior malignancy of small cell lung cancer. We will defer workup of this until patient is outpatient with her regular oncologist, Dr. Gracia. 7. For her trigeminal neuralgia, we will continue her carbamazepine. 8. For her back pain, we will place a Lidoderm patch and use Percocet p.r.n. 9. For her code status, she does remain a FULL CODE. Her daughter is her surrogate decision maker. Total time spent with the patient including physical examination, coordination of care, discussion with ER physicians and formulation of this plan was 85 minutes of time. DICTATING PHYSICIAN: APARNA MARTINEZ M.D. [id number] PHY#: [id number] ID: [id number] JOB#: [id number] ACCT: [id number] cc:APARNA MARTINEZ M.D. >
[2017-03-17] MEDS: IPRATROPIUM/ALBUTEROL 0.5-2.5 MG/3 ML AMPUL NEB SCH (20:44)
[2017-03-17] MEDS: DOCUSATE SODIUM 100 MG CAPSULE PO SCH (20:49)
[2017-03-17] MEDS: LIDOCAINE 5% (700 MG) TRANSDERMAL ADH..PATCH TP SCH (20:49)
[2017-03-17] MEDS ORDERED: CARBAMAZEPINE 200 MG TABLET PO SCH (22:00)
[2017-03-17] MEDS: LORATADINE 10 MG TABLET PO SCH (22:09)
[2017-03-17] MEDS: FLUTICASONE NASAL SPRAY 50 MCG/SPRY 120 SPRAY/16 GM NASL SCH (22:09)
[2017-03-17] MEDS: HEPARIN SOD (PORCINE) 5,000 UNIT/ML 1 ML SYRINGE SUBCUT SCH (22:10)
[2017-03-18] MEDS ORDERED: LAMOTRIGINE 100 MG TABLET PO ONE (00:30)
[2017-03-18] MEDS ORDERED: CARBAMAZEPINE 200 MG TABLET PO ONE (00:30)
[2017-03-18] MEDS ORDERED: INFLUENZA ADLT QUAD (36MOS+) 2017-18 VAC 0.5 ML SYR IM PRN (00:52)
[2017-03-18 01:20] LABS: CREATINE KINASE MB 0.71 ng/mL (<4.55)
[2017-03-18 01:26] LABS: TROPONIN I < 0.012 ng/mL
[2017-03-18 04:23] LABS: APPEARANCE,URINE CLEAR; BILIRUBIN,URINE NEGATIVE (NEGATIVE); GLUCOSE, URINE NEGATIVE (NEGATIVE); KETONES,URINE NEGATIVE (NEGATIVE); LEUKOCYTE ESTERASE,URINE TRACE (NEGATIVE); NITRITE,URINE NEGATIVE (NEGATIVE); PROTEIN,URINE 30 mg/dL (NEGATIVE); URINE SPECIFIC GRAVITY 1.006; UROBILINOGEN,URINE NEGATIVE mg/dL (<2.0)
[2017-03-18] MEDS ORDERED: CARBAMAZEPINE 200 MG TABLET PO SCH (06:00)
[2017-03-18 06:11] LABS: ABSOLUTE EOSINOPHILS # (AUTO) 0.6 10^3/uL (0.0-0.6); ABSOLUTE LYMPHOCYTES (AUTO) 0.8 10^3/uL (0.5-4.7); ABSOLUTE MONOCYTES (AUTO) 0.5 10^3/uL (0.1-1.4); ABSOLUTE NEUT (AUTO) 2.9 10^3/uL (1.7-8.2); BASOPHILS % (AUTO) 0.8 % (0-2); EOSINOPHILS % (AUTO) 11.5 % (0-6); HEMATOCRIT 25.2 % (36.0-47.0); HEMOGLOBIN 8.6 g/dL (12.0-15.5); HGB HCT DIFFERENCE 0.6; LYMPHOCYTES % (AUTO) 17.2 % (13-45); MEAN CORPUSCULAR HGB CONC 34.2 g/dL (32.0-36.0); MEAN CORPUSCULAR VOLUME 90 fl (80-97); MONOCYTES % (AUTO) 10.6 % (3-13); RED BLOOD COUNT 2.78 10^6/uL (3.72-5.28); RED CELL DISTRIBUTION WIDTH 14.9 % (11.5-14.0); SEGMENTED NEUTROPHILS % (AUTO) 59.9 % (42-78); WHITE BLOOD COUNT 4.9 10^3/uL (4.0-10.5)
[2017-03-18 06:28] LABS: ANION GAP 10 (5-19); BLOOD UREA NITROGEN 47 mg/dL (7-20); CALCIUM 8.3 mg/dL (8.4-10.2); CARBON DIOXIDE 25 mmol/L (22-30); CHLORIDE 108 mmol/L (98-107); CREATINE KINASE 48 U/L (30-135); CREATININE RESULT 2.56 mg/dL (0.52-1.25); GLUCOSE 120 mg/dL (75-110); MAGNESIUM 2.1 mg/dL (1.6-2.3); POTASSIUM 3.9 mmol/L (3.6-5.0); SODIUM 142.7 mmol/L (137-145)
[2017-03-18] MEDS: CARBAMAZEPINE 200 MG TABLET PO SCH ×2 (06:28→15:07)
[2017-03-18] MEDS: HEPARIN SOD (PORCINE) 5,000 UNIT/ML 1 ML SYRINGE SUBCUT SCH ×3 (06:29→22:14)
[2017-03-18] MEDS: LANSOPRAZOLE 30 MG TAB.RAP.DR PO SCH (06:29)
[2017-03-18 06:40] LABS: CREATINE KINASE MB 0.74 ng/mL (<4.55)
[2017-03-18 06:45] LABS: TROPONIN I < 0.012 ng/mL
[2017-03-18] MEDS: IPRATROPIUM/ALBUTEROL 0.5-2.5 MG/3 ML AMPUL NEB SCH ×3 (07:53→19:44)
[2017-03-18] MEDS ORDERED: (PENDING PHARMACY ID) (Methimazole [Tapazole] 10 MG) PO SCH (10:00)
[2017-03-18] MEDS ORDERED: GABAPENTIN 300 MG CAPSULE PO SCH (10:00)
[2017-03-18] MEDS ORDERED: LAMOTRIGINE 100 MG TABLET PO SCH (10:00)
[2017-03-18] MEDS: DOCUSATE SODIUM 100 MG CAPSULE PO SCH ×2 (10:00→18:27)
[2017-03-18] MEDS: METHIMAZOLE 5 MG TABLET PO SCH (10:00)
[2017-03-18] MEDS ORDERED: (PENDING PHARMACY ID) (Verapamil Hcl [Verapamil Er] 120 MG) PO SCH (10:00)
[2017-03-18] MEDS: MONTELUKAST SODIUM 10 MG TABLET PO SCH (10:00)
[2017-03-18] MEDS: FLUTICASONE NASAL SPRAY 50 MCG/SPRY 120 SPRAY/16 GM NASL SCH ×2 (10:00→22:14)
[2017-03-18] MEDS: VERAPAMIL HCL 120 MG TABLET.SA PO SCH (10:00)
[2017-03-18] MEDS ORDERED: GABAPENTIN 100 MG CAPSULE PO ONE (11:00)
[2017-03-18] MEDS ORDERED: NORMAL SALINE 1000 ML 1,000 ML IV PRN (17:09)
--- NOTE | 2017-03-18 17:33 | PDOC PROGRESS REPORT ---
Subjective Progress Note for:: 03/18/17 Subjective:: Patient reports she is having some blurred vision. Her mood appears to be quite labile. Her grandchildren are present at bedside and report to me that patient was overtly hallucinating earlier. Patient denies chest pain, shortness of breath, abdominal pain, nausea, vomiting , fevers, chills, diarrhea, constipation, headache. Physical Exam Vital Signs: Temp Pulse Resp BP Pulse Ox 98.8 F 68 19 106/47 L 100 03/18/17 04:00 03/18/17 07:00 03/18/17 04:00 03/18/17 04:00 03/18/17 04:00 Intake & Output 03/17/17 03/18/17 03/19/17 06:59 06:59 06:59 Intake Total 2675 Output Total 1550 Balance 1125 Weight 79.6 kg Exam: General: Awake alert and oriented x3, no acute respiratory distress HEENT: AT/NC, PERRL, EOMI, oropharynx is moist, pink, no scleral icterus, no conjunctival injection Neck: No JVD, trachea midline Chest: Clear to auscultation bilaterally, no wheezes rhonchi or rales CV: Regular rate and rhythm, normal S1 and S2, no rub or gallop; +2/6 SM Abdomen: Soft, nontender to palpation, nondistended, active bowel sounds; no rebound, rigidity, or guarding Extremities: No cyanosis, clubbing or edema Neuro: Cranial nerves II through XII are grossly intact without focal deficits; awake alert and orientedx3 Psych: Unusual mood and affect Results Laboratory Results: 03/18/17 05:43 03/18/17 05:43 03/17/17 03/18/17 03/18/17 18:20 03:55 05:43 WBC RBC Hgb Hct MCV MCH MCHC RDW Plt Count Seg Neutrophils % Lymphocytes % Monocytes % Eosinophils % Basophils % Absolute Neutrophils Absolute Lymphocytes Absolute Monocytes Absolute Eosinophils Absolute Basophils Sodium 142.7 Potassium 3.9 Chloride 108 H Carbon Dioxide 25 Anion Gap 10 BUN 47 H Creatinine 2.56 H Est GFR ( Amer) 22 L Est GFR (Non-Af Amer) 18 L Glucose 120 H Calcium 8.3 L Magnesium 2.1 TSH < 0.01 L Free T4 0.85 Free T3 pg/mL 4.06 Urine Color STRAW Urine Appearance CLEAR Urine pH 6.0 Ur Specific [place] 1.006 Urine Protein 30 H Urine Glucose (UA) NEGATIVE Urine Ketones NEGATIVE Urine Blood SMALL H Urine Nitrite NEGATIVE Ur Leukocyte Esterase TRACE H Urine WBC (Auto) 5 Urine RBC (Auto) 1 03/18/17 05:43 WBC 4.9 RBC 2.78 L Hgb 8.6 L Hct 25.2 L MCV 90 MCH 31.0 MCHC 34.2 RDW 14.9 H Plt Count 131 L Seg Neutrophils % 59.9 Lymphocytes % 17.2 Monocytes % 10.6 Eosinophils % 11.5 H Basophils % 0.8 Absolute Neutrophils 2.9 Absolute Lymphocytes 0.8 Absolute Monocytes 0.5 Absolute Eosinophils 0.6 Absolute Basophils 0.0 Sodium Potassium Chloride Carbon Dioxide Anion Gap BUN Creatinine Est GFR ( Amer) Est GFR (Non-Af Amer) Glucose Calcium Magnesium TSH Free T4 Free T3 pg/mL Urine Color Urine Appearance Urine pH Ur Specific [place] Urine Protein Urine Glucose (UA) Urine Ketones Urine Blood Urine Nitrite Ur Leukocyte Esterase Urine WBC (Auto) Urine RBC (Auto) 03/17/17 03/17/17 03/18/17 18:20 18:20 00:40 Creatine Kinase 55 52 CK-MB (CK-2) 0.62 Troponin I < 0.012 03/18/17 03/18/17 03/18/17 00:40 05:43 05:43 Creatine Kinase 48 CK-MB (CK-2) 0.71 0.74 Troponin I < 0.012 < 0.012 Assessment & Plan - Diagnosis (1) Acute renal failure Qualifiers: Acute renal failure type: unspecified Qualified Code(s): N17.9 - Acute kidney failure, unspecified Is this a current diagnosis for this admission?: Yes Plan: Concern for AIN in light of eosinophilia and eosinophiluria Improving with IV fluids. (2) Trigeminal neuralgia Is this a current diagnosis for this admission?: Yes Plan: Hold carbamazepine in light of renal failure and think that patient's slight alteration in mental status could be secondary to this. (3) Dementia Qualifiers: Dementia type: unspecified type Dementia behavioral disturbance: without behavioral disturbance Qualified Code(s): F03.90 - Unspecified dementia without behavioral disturbance Is this a current diagnosis for this admission?: Yes Plan: Suspect patient has a small amount of underlying dementia and will add Risperdal nightly (4) Dehydration Is this a current diagnosis for this admission?: Yes Plan: Improving with IV fluids (5) Anemia Qualifiers: Anemia type: iron deficiency Iron deficiency anemia type: unspecified iron deficiency Qualified Code(s): D50.9 - Iron deficiency anemia, unspecified Is this a current diagnosis for this admission?: Yes Plan: Continue to monitor and transfuse if she falls below 8 (6) Obstructive chronic bronchitis with exacerbation Is this a current diagnosis for this admission?: Yes Plan: Continue nebulized treatments currently no exacerbation consider prednisone if worsens (7) Lung cancer Is this a current diagnosis for this admission?: Yes Plan: Consult oncology on her monday (8) TOÑA (obstructive sleep apnea) Is this a current diagnosis for this admission?: Yes Plan: Use CPAP (9) Breast mass Is this a current diagnosis for this admission?: Yes Plan: Patient has undergone mammography and we will consult her oncologist on Monday - Time Time Spent with patient: 35 or more minutes Medications reviewed and adjusted accordingly: Yes
[2017-03-18] MEDS: LIDOCAINE 5% (700 MG) TRANSDERMAL ADH..PATCH TP SCH (18:28)
[2017-03-18] MEDS ORDERED: RISPERIDONE 0.5 MG TAB.RAPDIS ONE (21:47)
[2017-03-18] MEDS ORDERED: RISPERIDONE 0.25 MG TABLET ONE (21:51)
[2017-03-18] MEDS ORDERED: RISPERIDONE 0.25 MG TABLET PO SCH (22:00)
[2017-03-18] MEDS: LORATADINE 10 MG TABLET PO SCH (22:13)
[2017-03-19] MEDS: LANSOPRAZOLE 30 MG TAB.RAP.DR PO SCH (06:09)
[2017-03-19] MEDS: HEPARIN SOD (PORCINE) 5,000 UNIT/ML 1 ML SYRINGE SUBCUT SCH ×3 (06:09→22:01)
[2017-03-19 07:07] LABS: ABSOLUTE EOSINOPHILS # (AUTO) 0.4 10^3/uL (0.0-0.6); ABSOLUTE LYMPHOCYTES (AUTO) 0.9 10^3/uL (0.5-4.7); ABSOLUTE MONOCYTES (AUTO) 0.5 10^3/uL (0.1-1.4); BASOPHILS % (AUTO) 0.8 % (0-2); HEMOGLOBIN 8.5 g/dL (12.0-15.5); HGB HCT DIFFERENCE 0.5; LYMPHOCYTES % (AUTO) 17.7 % (13-45); MEAN CORPUSCULAR HEMOGLOBIN 30.8 pg (27.0-33.4); MEAN CORPUSCULAR HGB CONC 33.9 g/dL (32.0-36.0); MEAN CORPUSCULAR VOLUME 91 fl (80-97); MONOCYTES % (AUTO) 9.9 % (3-13); RED BLOOD COUNT 2.75 10^6/uL (3.72-5.28); RED CELL DISTRIBUTION WIDTH 15.3 % (11.5-14.0); SEGMENTED NEUTROPHILS % (AUTO) 62.6 % (42-78); WHITE BLOOD COUNT 4.8 10^3/uL (4.0-10.5)
[2017-03-19 07:26] LABS: ANION GAP 11 (5-19); BLOOD UREA NITROGEN 38 mg/dL (7-20); CALCIUM 8.9 mg/dL (8.4-10.2); CARBON DIOXIDE 24 mmol/L (22-30); CHLORIDE 112 mmol/L (98-107); CREATININE RESULT 2.16 mg/dL (0.52-1.25); GLUCOSE 85 mg/dL (75-110); POTASSIUM 3.8 mmol/L (3.6-5.0); SODIUM 147.3 mmol/L (137-145)
[2017-03-19] MEDS: IPRATROPIUM/ALBUTEROL 0.5-2.5 MG/3 ML AMPUL NEB SCH ×3 (08:34→20:02)
[2017-03-19] MEDS: DOCUSATE SODIUM 100 MG CAPSULE PO SCH ×2 (09:18→17:27)
[2017-03-19] MEDS: MONTELUKAST SODIUM 10 MG TABLET PO SCH (09:19)
[2017-03-19] MEDS: VERAPAMIL HCL 120 MG TABLET.SA PO SCH (09:19)
[2017-03-19] MEDS: METHIMAZOLE 5 MG TABLET PO SCH (09:20)
[2017-03-19] MEDS: FLUTICASONE NASAL SPRAY 50 MCG/SPRY 120 SPRAY/16 GM NASL SCH ×2 (09:20→22:01)
[2017-03-19] MEDS ORDERED: GABAPENTIN 100 MG CAPSULE PO SCH (10:00)
[2017-03-19] MEDS: LIDOCAINE 5% (700 MG) TRANSDERMAL ADH..PATCH TP SCH (17:27)
--- NOTE | 2017-03-19 17:55 | PDOC PROGRESS REPORT ---
Subjective Progress Note for:: 03/19/17 Subjective:: Patient does complain of dizziness. Patient reports that she slept well and is feeling significantly better today. Her mood appears to be more stable today. Patient denies chest pain, shortness of breath, abdominal pain, nausea, vomiting , fevers, chills, diarrhea, constipation, headache, new onset weakness. Physical Exam Vital Signs: Temp Pulse Resp BP Pulse Ox 98.1 F 73 16 103/42 L 97 03/18/17 20:00 03/19/17 07:00 03/19/17 00:00 03/18/17 20:00 03/18/17 20:00 Intake & Output 03/18/17 03/19/17 03/20/17 06:59 06:59 06:59 Intake Total 2675 3146 Output Total 1550 4900 Balance 1125 -1754 Weight 79.6 kg 79.6 kg Exam: General: Awake alert and oriented x3, no acute respiratory distress HEENT: AT/NC, PERRL, EOMI, oropharynx is moist, pink, no scleral icterus, no conjunctival injection Neck: No JVD, trachea midline Chest: Clear to auscultation bilaterally, no wheezes rhonchi or rales CV: Regular rate and rhythm, normal S1 and S2, no rub or gallop; +2/6 SM Abdomen: Soft, nontender to palpation, nondistended, active bowel sounds; no rebound, rigidity, or guarding Extremities: No cyanosis, clubbing; trace edema Neuro: Cranial nerves II through XII are grossly intact without focal deficits; awake alert and orientedx3 Psych: Occasionally tearful Results Laboratory Results: 03/19/17 06:56 03/19/17 06:56 03/19/17 03/19/17 06:56 06:56 WBC 4.8 RBC 2.75 L Hgb 8.5 L Hct 25.0 L MCV 91 MCH 30.8 MCHC 33.9 RDW 15.3 H Plt Count 123 L Seg Neutrophils % 62.6 Lymphocytes % 17.7 Monocytes % 9.9 Eosinophils % 9.0 H Basophils % 0.8 Absolute Neutrophils 3.0 Absolute Lymphocytes 0.9 Absolute Monocytes 0.5 Absolute Eosinophils 0.4 Absolute Basophils 0.0 Sodium 147.3 H Potassium 3.8 Chloride 112 H Carbon Dioxide 24 Anion Gap 11 BUN 38 H Creatinine 2.16 H Est GFR ( Amer) 27 L Est GFR (Non-Af Amer) 22 L Glucose 85 Calcium 8.9 03/17/17 03/17/17 03/18/17 18:20 18:20 00:40 Creatine Kinase 55 52 CK-MB (CK-2) 0.62 Troponin I < 0.012 03/18/17 03/18/17 03/18/17 00:40 05:43 05:43 Creatine Kinase 48 CK-MB (CK-2) 0.71 0.74 Troponin I < 0.012 < 0.012 Assessment & Plan - Diagnosis (1) Acute renal failure Qualifiers: Acute renal failure type: unspecified Qualified Code(s): N17.9 - Acute kidney failure, unspecified Is this a current diagnosis for this admission?: Yes Plan: Nonoliguric Concern for AIN in light of eosinophilia and eosinophiluria Improving with IV fluids. Continue gentle hydration 03/17/17 03/18/17 03/19/17 14:31 05:43 06:56 Creatinine 3.39 H 2.56 H 2.16 H (2) Trigeminal neuralgia Is this a current diagnosis for this admission?: Yes Plan: Hold carbamazepine in light of renal failure and think that patient's continued dizziness could be secondary to this. We will reinitiate once creatinine improves (3) Dementia Qualifiers: Dementia type: unspecified type Dementia behavioral disturbance: without behavioral disturbance Qualified Code(s): F03.90 - Unspecified dementia without behavioral disturbance Is this a current diagnosis for this admission?: Yes Plan: Suspect patient has a small amount of underlying dementia and will increase Risperdal nightly (4) Dehydration Is this a current diagnosis for this admission?: Yes Plan: Improving with IV fluids (5) Anemia Qualifiers: Anemia type: iron deficiency Iron deficiency anemia type: unspecified iron deficiency Qualified Code(s): D50.9 - Iron deficiency anemia, unspecified Is this a current diagnosis for this admission?: Yes Plan: Continue to monitor and transfuse if she falls below 8 (6) Obstructive chronic bronchitis with exacerbation Is this a current diagnosis for this admission?: Yes Plan: Continue nebulized treatments currently no exacerbation consider prednisone if worsens (7) Lung cancer Is this a current diagnosis for this admission?: Yes Plan: Consult oncology on her monday (8) TOÑA (obstructive sleep apnea) Is this a current diagnosis for this admission?: Yes Plan: Use CPAP (9) Breast mass Is this a current diagnosis for this admission?: Yes Plan: Patient has undergone mammography and we will consult her oncologist on Monday (10) Diabetes mellitus Qualifiers: Diabetes mellitus type: type 2 Diabetes mellitus complication status: with unspecified complications Diabetes mellitus senior care insulin use: without senior care use Qualified Code(s): E11.8 - Type 2 diabetes mellitus with unspecified complications Is this a current diagnosis for this admission?: Yes Plan: 03/18/17 05:43 Hemoglobin A1c % 5.2 - Time Time Spent with patient: 35 or more minutes Medications reviewed and adjusted accordingly: Yes
[2017-03-19] MEDS: LORATADINE 10 MG TABLET PO SCH (21:59)
[2017-03-19] MEDS ORDERED: RISPERIDONE 0.25 MG TABLET PO SCH (22:00)
[2017-03-20] MEDS: LANSOPRAZOLE 30 MG TAB.RAP.DR PO SCH (05:11)
[2017-03-20] MEDS: HEPARIN SOD (PORCINE) 5,000 UNIT/ML 1 ML SYRINGE SUBCUT SCH ×3 (05:11→21:59)
[2017-03-20 06:07] LABS: ABSOLUTE EOSINOPHILS # (AUTO) 0.5 10^3/uL (0.0-0.6); ABSOLUTE LYMPHOCYTES (AUTO) 0.9 10^3/uL (0.5-4.7); ABSOLUTE MONOCYTES (AUTO) 0.5 10^3/uL (0.1-1.4); ABSOLUTE NEUT (AUTO) 2.7 10^3/uL (1.7-8.2); BASOPHILS % (AUTO) 0.8 % (0-2); EOSINOPHILS % (AUTO) 10.4 % (0-6); HEMATOCRIT 25.5 % (36.0-47.0); HEMOGLOBIN 8.6 g/dL (12.0-15.5); HGB HCT DIFFERENCE 0.3; MEAN CORPUSCULAR HEMOGLOBIN 30.6 pg (27.0-33.4); MEAN CORPUSCULAR HGB CONC 33.7 g/dL (32.0-36.0); MEAN CORPUSCULAR VOLUME 91 fl (80-97); MONOCYTES % (AUTO) 10.2 % (3-13); RED CELL DISTRIBUTION WIDTH 15.1 % (11.5-14.0); SEGMENTED NEUTROPHILS % (AUTO) 58.6 % (42-78); WHITE BLOOD COUNT 4.6 10^3/uL (4.0-10.5)
[2017-03-20 06:19] LABS: ANION GAP 12 (5-19); BLOOD UREA NITROGEN 26 mg/dL (7-20); CALCIUM 8.9 mg/dL (8.4-10.2); CARBON DIOXIDE 24 mmol/L (22-30); CHLORIDE 112 mmol/L (98-107); CREATININE RESULT 1.75 mg/dL (0.52-1.25); GLUCOSE 80 mg/dL (75-110); POTASSIUM 3.5 mmol/L (3.6-5.0); SODIUM 147.9 mmol/L (137-145)
[2017-03-20] MEDS ORDERED: ACETAMINOPHEN 325 MG TABLET PO PRN (07:30)
[2017-03-20] MEDS ORDERED: LEVALBUTEROL HCL NEB 1.25 MG/3 ML AMPUL NEB PRN (07:30)
[2017-03-20] MEDS ORDERED: 1/2 NORMAL SALINE 1,000 ML IV PRN (07:55)
[2017-03-20] MEDS: IPRATROPIUM/ALBUTEROL 0.5-2.5 MG/3 ML AMPUL NEB SCH ×3 (08:05→19:35)
[2017-03-20] MEDS ORDERED: POTASSIUM CHLORIDE 10 MEQ TABLET.SA PO ONE (08:30)
[2017-03-20] MEDS: LIDOCAINE 5% (700 MG) TRANSDERMAL ADH..PATCH TP SCH (11:02)
[2017-03-20] MEDS: LAMOTRIGINE 100 MG TABLET PO SCH ×2 (11:02→21:58)
[2017-03-20] MEDS: DOCUSATE SODIUM 100 MG CAPSULE PO SCH ×2 (11:02→17:16)
[2017-03-20] MEDS: FLUTICASONE NASAL SPRAY 50 MCG/SPRY 120 SPRAY/16 GM NASL SCH ×2 (11:02→21:59)
[2017-03-20] MEDS: MONTELUKAST SODIUM 10 MG TABLET PO SCH (11:03)
[2017-03-20] MEDS: MULTIVITAMINS W-IRON TABLET, CHEWABLE PO SCH (11:03)
[2017-03-20] MEDS: PAROXETINE HCL 20 MG TABLET PO SCH (11:03)
[2017-03-20] MEDS: METHIMAZOLE 5 MG TABLET PO SCH (11:03)
[2017-03-20] MEDS: VERAPAMIL HCL 120 MG TABLET.SA PO SCH (11:04)
[2017-03-20] MEDS: OXYCODONE-ACETAMINOPHEN 5-325 MG TABLET PO PRN ×3 (11:59→23:06)
--- NOTE | 2017-03-20 18:17 | PDOC PROGRESS REPORT ---
Subjective Progress Note for:: 03/20/17 Subjective:: Patient does complain of dizziness. She also reports that she had some unusual thoughts today that the nursing staff was engaging espionage. She reports no bowel movement. Patient denies chest pain, shortness of breath, abdominal pain, nausea, vomiting , fevers, chills, diarrhea, headache, new onset weakness. Physical Exam Vital Signs: Temp Pulse Resp BP Pulse Ox 98.2 F 77 18 134/61 H 98 03/20/17 15:16 03/20/17 15:16 03/20/17 15:16 03/20/17 15:16 03/20/17 15:16 Intake & Output 03/19/17 03/20/17 03/21/17 06:59 06:59 06:59 Intake Total 3146 2909 Output Total 4900 900 Balance -1754 2008 Weight 79.6 kg 79.6 kg Exam: General: Awake alert and oriented x3, no acute respiratory distress HEENT: AT/NC, PERRL, EOMI, oropharynx is moist, pink, no scleral icterus, no conjunctival injection Neck: No JVD, trachea midline Chest: Clear to auscultation bilaterally, no wheezes rhonchi or rales CV: Regular rate and rhythm, normal S1 and S2, no rub or gallop; +2/6 SM Abdomen: Soft, nontender to palpation, nondistended, active bowel sounds; no rebound, rigidity, or guarding Extremities: No cyanosis, clubbing, edema Neuro: Cranial nerves II through XII are grossly intact without focal deficits; awake alert and orientedx3 Psych: Unusual mood and affect Results Laboratory Results: 03/20/17 05:30 03/20/17 05:30 03/20/17 03/20/17 05:30 05:30 WBC 4.6 RBC 2.80 L Hgb 8.6 L Hct 25.5 L MCV 91 MCH 30.6 MCHC 33.7 RDW 15.1 H Plt Count 129 L Seg Neutrophils % 58.6 Lymphocytes % 20.0 Monocytes % 10.2 Eosinophils % 10.4 H Basophils % 0.8 Absolute Neutrophils 2.7 Absolute Lymphocytes 0.9 Absolute Monocytes 0.5 Absolute Eosinophils 0.5 Absolute Basophils 0.0 Sodium 147.9 H Potassium 3.5 L Chloride 112 H Carbon Dioxide 24 Anion Gap 12 BUN 26 H Creatinine 1.75 H Est GFR ( Amer) 34 L Est GFR (Non-Af Amer) 28 L Glucose 80 Calcium 8.9 03/18/17 03:55 Catheterized Urine Urine Culture - Final NO GROWTH 2 DAYS 03/17/17 03/17/17 03/18/17 18:20 18:20 00:40 Creatine Kinase 55 52 CK-MB (CK-2) 0.62 Troponin I < 0.012 03/18/17 03/18/17 03/18/17 00:40 05:43 05:43 Creatine Kinase 48 CK-MB (CK-2) 0.71 0.74 Troponin I < 0.012 < 0.012 Assessment & Plan - Diagnosis (1) Acute renal failure Qualifiers: Acute renal failure type: unspecified Qualified Code(s): N17.9 - Acute kidney failure, unspecified Is this a current diagnosis for this admission?: Yes Plan: Nonoliguric Concern for AIN in light of eosinophilia and eosinophiluria Improving with IV fluids. Continue gentle hydration 03/17/17 03/18/17 03/19/17 14:31 05:43 06:56 Creatinine 3.39 H 2.56 H 2.16 H 03/20/17 05:30 Creatinine 1.75 H (2) Trigeminal neuralgia Is this a current diagnosis for this admission?: Yes Plan: Resume carbamazepine. (3) Dementia Qualifiers: Dementia type: unspecified type Dementia behavioral disturbance: without behavioral disturbance Qualified Code(s): F03.90 - Unspecified dementia without behavioral disturbance Is this a current diagnosis for this admission?: Yes Plan: Suspect patient has a small amount of underlying dementia Risperdal nightly (4) Dehydration Is this a current diagnosis for this admission?: Yes (5) Anemia Qualifiers: Anemia type: iron deficiency Iron deficiency anemia type: unspecified iron deficiency Qualified Code(s): D50.9 - Iron deficiency anemia, unspecified Is this a current diagnosis for this admission?: Yes (6) Obstructive chronic bronchitis with exacerbation Is this a current diagnosis for this admission?: Yes Plan: Continue nebulized treatments currently no exacerbation consider prednisone if worsens (7) Lung cancer Is this a current diagnosis for this admission?: Yes Plan: Consult oncology (8) TOÑA (obstructive sleep apnea) Is this a current diagnosis for this admission?: Yes Plan: Use CPAP (9) Breast mass Is this a current diagnosis for this admission?: Yes Plan: Patient has undergone mammography and we will consult her oncologist (10) Diabetes mellitus Qualifiers: Diabetes mellitus type: type 2 Diabetes mellitus complication status: with unspecified complications Diabetes mellitus halfway insulin use: without buttermaker helper use Qualified Code(s): E11.8 - Type 2 diabetes mellitus with unspecified complications Is this a current diagnosis for this admission?: Yes Plan: regular diet 03/18/17 05:43 Hemoglobin A1c % 5.2 - Time Time Spent with patient: 25-34 minutes Medications reviewed and adjusted accordingly: Yes Anticipated discharge: Home with Homehealth
[2017-03-20] MEDS ORDERED: BISACODYL 5 MG TABEC PO ONE (18:45)
[2017-03-20] MEDS: RISPERIDONE 1 MG TABLET PO SCH (21:58)
[2017-03-20] MEDS: LORATADINE 10 MG TABLET PO SCH (21:58)
[2017-03-20] MEDS: PHARMACY COMMUNICATION ORDER MC SCH (22:12)
[2017-03-21] MEDS: LANSOPRAZOLE 30 MG TAB.RAP.DR PO SCH (05:27)
[2017-03-21] MEDS: HEPARIN SOD (PORCINE) 5,000 UNIT/ML 1 ML SYRINGE SUBCUT SCH (05:27)
[2017-03-21 08:29] LABS: ABSOLUTE EOSINOPHILS # (AUTO) 0.5 10^3/uL (0.0-0.6); ABSOLUTE LYMPHOCYTES (AUTO) 1.1 10^3/uL (0.5-4.7); ABSOLUTE MONOCYTES (AUTO) 0.4 10^3/uL (0.1-1.4); ABSOLUTE NEUT (AUTO) 2.8 10^3/uL (1.7-8.2); EOSINOPHILS % (AUTO) 9.6 % (0-6); HEMATOCRIT 24.2 % (36.0-47.0); HGB HCT DIFFERENCE -0.2; LYMPHOCYTES % (AUTO) 22.3 % (13-45); MEAN CORPUSCULAR HGB CONC 33.3 g/dL (32.0-36.0); MEAN CORPUSCULAR VOLUME 90 fl (80-97); MONOCYTES % (AUTO) 8.7 % (3-13); RED BLOOD COUNT 2.68 10^6/uL (3.72-5.28); RED CELL DISTRIBUTION WIDTH 15.1 % (11.5-14.0); SEGMENTED NEUTROPHILS % (AUTO) 58.4 % (42-78); WHITE BLOOD COUNT 4.7 10^3/uL (4.0-10.5)
[2017-03-21] MEDS ORDERED: LAMOTRIGINE 100 MG TABLET PO ONE (08:30)
[2017-03-21] MEDS: IPRATROPIUM/ALBUTEROL 0.5-2.5 MG/3 ML AMPUL NEB SCH ×3 (08:30→19:42)
[2017-03-21 08:42] LABS: ANION GAP 8 (5-19); BLOOD UREA NITROGEN 21 mg/dL (7-20); CALCIUM 8.9 mg/dL (8.4-10.2); CARBON DIOXIDE 26 mmol/L (22-30); CHLORIDE 110 mmol/L (98-107); CREATININE RESULT 1.56 mg/dL (0.52-1.25); GLUCOSE 78 mg/dL (75-110); POTASSIUM 3.8 mmol/L (3.6-5.0); SODIUM 143.9 mmol/L (137-145)
[2017-03-21] MEDS ORDERED: LIDOCAINE 1% INJ-PF (10 MG/ML) 30 ML SDV ONE (10:20)
[2017-03-21] MEDS: VERAPAMIL HCL 120 MG TABLET.SA PO SCH (10:26)
[2017-03-21] MEDS: MULTIVITAMINS W-IRON TABLET, CHEWABLE PO SCH (10:26)
[2017-03-21] MEDS: METHIMAZOLE 5 MG TABLET PO SCH (10:27)
[2017-03-21] MEDS: MONTELUKAST SODIUM 10 MG TABLET PO SCH (10:27)
[2017-03-21] MEDS: DOCUSATE SODIUM 100 MG CAPSULE PO SCH ×2 (10:27→18:14)
[2017-03-21] MEDS: PAROXETINE HCL 20 MG TABLET PO SCH (10:27)
[2017-03-21] MEDS: LIDOCAINE 5% (700 MG) TRANSDERMAL ADH..PATCH TP SCH (10:28)
[2017-03-21] MEDS: FLUTICASONE NASAL SPRAY 50 MCG/SPRY 120 SPRAY/16 GM NASL SCH ×2 (10:28→21:41)
--- NOTE | 2017-03-21 16:24 | PDOC PROGRESS REPORT ---
Subjective Progress Note for:: 03/21/17 Subjective:: She is scheduled for an ultrasound guided biopsy of her left breast today. Patient denies new complaint. Patient denies chest pain, shortness of breath, abdominal pain, nausea, vomiting , fevers, chills, diarrhea, headache, new onset weakness. Physical Exam Vital Signs: Temp Pulse Resp BP Pulse Ox 97.9 F 72 18 118/54 L 99 03/21/17 11:31 03/21/17 13:49 03/21/17 13:49 03/21/17 11:31 03/21/17 13:49 Intake & Output 03/20/17 03/21/17 03/22/17 06:59 06:59 06:59 Intake Total 2909 5673 Output Total 900 3950 Balance 2008 1722 Weight 79.6 kg 81.9 kg Exam: General: Awake alert and oriented x3, no acute respiratory distress HEENT: AT/NC, PERRL, EOMI, oropharynx is moist, pink, no scleral icterus, no conjunctival injection Neck: No JVD, trachea midline Chest: Clear to auscultation bilaterally, no wheezes rhonchi or rales CV: Regular rate and rhythm, normal S1 and S2, no rub or gallop; +2/6 SM Abdomen: Soft, nontender to palpation, nondistended, active bowel sounds; no rebound, rigidity, or guarding Extremities: No cyanosis, clubbing, edema Neuro: Cranial nerves II through XII are grossly intact without focal deficits; awake alert and orientedx3 Psych: Unusual mood and affect Results Laboratory Results: 03/21/17 08:17 03/21/17 08:17 03/21/17 03/21/17 08:17 08:17 WBC 4.7 RBC 2.68 L Hgb 8.0 L Hct 24.2 L MCV 90 MCH 30.0 MCHC 33.3 RDW 15.1 H Plt Count 124 L Seg Neutrophils % 58.4 Lymphocytes % 22.3 Monocytes % 8.7 Eosinophils % 9.6 H Basophils % 1.0 Absolute Neutrophils 2.8 Absolute Lymphocytes 1.1 Absolute Monocytes 0.4 Absolute Eosinophils 0.5 Absolute Basophils 0.0 Sodium 143.9 Potassium 3.8 Chloride 110 H Carbon Dioxide 26 Anion Gap 8 BUN 21 H Creatinine 1.56 H Est GFR ( Amer) 39 L Est GFR (Non-Af Amer) 32 L Glucose 78 Calcium 8.9 03/17/17 03/17/17 03/18/17 18:20 18:20 00:40 Creatine Kinase 55 52 CK-MB (CK-2) 0.62 Troponin I < 0.012 03/18/17 03/18/17 03/18/17 00:40 05:43 05:43 Creatine Kinase 48 CK-MB (CK-2) 0.71 0.74 Troponin I < 0.012 < 0.012 Assessment & Plan - Diagnosis (1) Acute renal failure Qualifiers: Acute renal failure type: unspecified Qualified Code(s): N17.9 - Acute kidney failure, unspecified Is this a current diagnosis for this admission?: Yes Plan: Nonoliguric Concern for AIN in light of eosinophilia and eosinophiluria Improved with IV fluids. Stop IV fluids 03/17/17 03/18/17 03/19/17 14:31 05:43 06:56 Creatinine 3.39 H 2.56 H 2.16 H 03/20/17 05:30 Creatinine 1.75 H 03/21/17: Creatinine 1.56 H (2) Trigeminal neuralgia Is this a current diagnosis for this admission?: Yes Plan: Conitnue carbamazepine. (3) Dementia Qualifiers: Dementia type: unspecified type Dementia behavioral disturbance: without behavioral disturbance Qualified Code(s): F03.90 - Unspecified dementia without behavioral disturbance Is this a current diagnosis for this admission?: Yes Plan: Suspect patient has a small amount of underlying dementia Risperdal nightly (4) Dehydration Is this a current diagnosis for this admission?: Yes (5) Anemia Qualifiers: Anemia type: iron deficiency Iron deficiency anemia type: unspecified iron deficiency Qualified Code(s): D50.9 - Iron deficiency anemia, unspecified Is this a current diagnosis for this admission?: Yes Plan: Continue to monitor and transfuse if she falls below 8 (6) Obstructive chronic bronchitis with exacerbation Is this a current diagnosis for this admission?: Yes (7) Lung cancer Is this a current diagnosis for this admission?: Yes (8) TOÑA (obstructive sleep apnea) Is this a current diagnosis for this admission?: Yes Plan: Use CPAP (9) Breast mass Is this a current diagnosis for this admission?: Yes Plan: Plan for bx today (10) Diabetes mellitus Qualifiers: Diabetes mellitus type: type 2 Diabetes mellitus complication status: with unspecified complications 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
[2017-03-21] MEDS: OXYCODONE-ACETAMINOPHEN 5-325 MG TABLET PO PRN ×2 (18:14→22:16)
--- NOTE | 2017-03-21 18:27 | OPERATIVE REPORT E ---
Operative Report NAME: TAINA MONTEJO : 1940 AGE: 76Y DATE OF SURGERY: 03/17/2017 ROOM: 538 PREOPERATIVE DIAGNOSIS: LEFT BREAST MASS. POSTOPERATIVE DIAGNOSIS: LEFT BREAST MASS. OPERATION: Focused ultrasound of the left breast, multiple core biopsies left breast mass, clip marker deployment under ultrasound guidance left breast mass. SURGEON: LEÓN ARTIS M.D. ANESTHESIA: 1% Lidocaine plain. COMPLICATIONS: None. ESTIMATED BLOOD LOSS: Minimal. DRAINS: None. TISSUE REMOVED OR ALTERED: Multiple cores, left breast. SUMMARY OF PROCEDURE: Patient's left breast was exposed. The breast was scanned with the variable frequency linear transducer. Findings were significant for *------*, vertically oriented mass with several hyperechoic central spots. The mass was at the 8 o'clock position left breast areolar border approximately 2 cm deep to the skin. Adjacent skin was prepped with Betadine and anesthetized with 1% Lidocaine. A evelyn was made in the skin with an 11 blade, and the 14-gauge mammotome was used to obtain several cores of the specimen. Unfortunately, the patient's agitation, and superficial location of the breast mass, in conjunction with very flimsy breast parenchyma made specimen acquisition somewhat challenging. Nonetheless, we got a few descent cores. A clip marker was then deployed into the spot at site of biopsy. The deploying device was withdrawn from the patient's breast. Patient tolerated the procedure well. Bleeding was negligible. Specimen was sent in formalin for permanent analysis. Steri-Strip applied to the incision. The patient tolerated the procedure well. DICTATING PHYSICIAN: LEÓN ARTIS M.D. [id number] PHY#: [id number] ID: [id number] JOB#: [id number] ACCT: [id number] cc:LEÓN ARTIS M.D. >
[2017-03-21] MEDS: LAMOTRIGINE 100 MG TABLET PO SCH (21:40)
[2017-03-21] MEDS: LORATADINE 10 MG TABLET PO SCH (21:41)
[2017-03-21] MEDS: RISPERIDONE 1 MG TABLET PO SCH (21:41)
[2017-03-21] MEDS: PHARMACY COMMUNICATION ORDER MC SCH (21:45)
[2017-03-22] MEDS: LANSOPRAZOLE 30 MG TAB.RAP.DR PO SCH (05:50)
[2017-03-22 06:58] LABS: ABSOLUTE EOSINOPHILS # (AUTO) 0.4 10^3/uL (0.0-0.6); ABSOLUTE MONOCYTES (AUTO) 0.5 10^3/uL (0.1-1.4); ABSOLUTE NEUT (AUTO) 2.7 10^3/uL (1.7-8.2); BASOPHILS % (AUTO) 0.8 % (0-2); EOSINOPHILS % (AUTO) 8.8 % (0-6); HEMATOCRIT 23.5 % (36.0-47.0); HEMOGLOBIN 8.1 g/dL (12.0-15.5); HGB HCT DIFFERENCE 0.8; LYMPHOCYTES % (AUTO) 21.4 % (13-45); MEAN CORPUSCULAR HEMOGLOBIN 30.9 pg (27.0-33.4); MEAN CORPUSCULAR HGB CONC 34.5 g/dL (32.0-36.0); MEAN CORPUSCULAR VOLUME 90 fl (80-97); MONOCYTES % (AUTO) 10.3 % (3-13); RED BLOOD COUNT 2.62 10^6/uL (3.72-5.28); RED CELL DISTRIBUTION WIDTH 14.9 % (11.5-14.0); SEGMENTED NEUTROPHILS % (AUTO) 58.7 % (42-78); WHITE BLOOD COUNT 4.5 10^3/uL (4.0-10.5)
[2017-03-22 07:10] LABS: ANION GAP 10 (5-19); BLOOD UREA NITROGEN 19 mg/dL (7-20); CALCIUM 9.3 mg/dL (8.4-10.2); CARBON DIOXIDE 26 mmol/L (22-30); CHLORIDE 109 mmol/L (98-107); CREATININE RESULT 1.44 mg/dL (0.52-1.25); GLUCOSE 75 mg/dL (75-110); POTASSIUM 3.7 mmol/L (3.6-5.0); SODIUM 145.2 mmol/L (137-145)
[2017-03-22] MEDS: IPRATROPIUM/ALBUTEROL 0.5-2.5 MG/3 ML AMPUL NEB SCH ×3 (07:40→19:51)
--- NOTE | 2017-03-22 08:11 | EKG REPORT ---
SEVERITY:- ABNORMAL ECG - SINUS RHYTHM SUPRAVENTRICULAR BIGEMINY BORDERLINE R WAVE PROGRESSION, ANTERIOR LEADS : Confirmed by: Adam Lord MD 22-Mar-2017 08:11:24
--- NOTE | 2017-03-22 08:28 | PDOC CONSULTATION ---
Consultation Consult Date: 03/22/17 Attending physician:: APARNA MARTINEZ Consult reason:: R breast mass, hx of NSCLC History of Present Illness Admission Date/PCP: 03/17/17 17:42 ELISE GARCIA DO Patient complains of: Falls, dehydration History of Present Illness: 76-year-old female with known history of non-small cell lung cancer, stage IV disease, with previous history of bilateral lung nodules, has been on clinical trial, and is actually on the observation arm currently of trial, previously was on immunotherapy with opdiv has not received that medication now for over a year.o, she has remained in a complete response from the clinical trial. Last week she had mammography done which indicated a right breast mass. Patient was having falls at home and ultimately was brought to ED with confusion and weakness, upon admission her creatinine was in the 3 range, ultimately it is been decided that it probably was medication related in some way, as well as dehydration related, and there have been major medication changes while she has been here. To address the breast mass, we decided on getting general surgery to go ahead and do a breast biopsy on her, that was done yesterday and we will address that as an outpatient. Past Medical History Cardiac Medical History: Reports: Other - Pt's daughter reports pt's blood pressure generally runs about 110 systolic Denies: Coronary Artery Disease, Myocardial Infarction, Hypertension Pulmonary Medical History: Reports: Asthma, Bronchitis, Chronic Obstructive Pulmonary Disease (COPD), Pneumonia Denies: Tuberculosis EENT Medical History: Reports: None Neurological Medical History: Reports: None Denies: Seizures Endocrine Medical History: Reports: None Denies: Diabetes Mellitus Type 2 Renal/ Medical History: Malignancy Medical History: Reports: Lung Cancer - Stage IV lung cancer, treated by chemotherapy. Currently in remission. GI Medical History: Musculoskeltal Medical History: Reports: Arthritis Psychiatric Medical History: Reports: Depression Hematology: Reports: Anemia Denies: Sickle Cell Disease, Bleeding Tendencies Past Surgical History Past Surgical History: Reports: Appendectomy, Hysterectomy, Orthopedic Surgery - R knee, bilateral hands Denies: Amputation Social History Information Source: Patient Lives with: Alone Smoking Status: Current Every Day Smoker Cigarettes Packs Per Day: 0.5 Frequency of Alcohol Use: None Hx Recreational Drug Use: No Drugs: None Hx Prescription Drug Abuse: No - Advance Directive Resuscitation Status: Full Code Family History Family History: Reviewed & Not Pertinent Parental Family History Reviewed: Yes Children Family History Reviewed: Yes Sibling(s) Family History Reviewed.: Yes Medication/Allergy Home Medications: Aliskiren Hemifumarate [Tekturna 300 mg Tablet] 300 mg PO DAILY 03/17/17 Carbamazepine [Tegretol 200 mg Tablet] 200 mg PO Q8 03/17/17 Cetirizine HCl [Zyrtec 10 mg Tablet] 10 mg PO DAILY 03/17/17 Furosemide [Lasix 40 mg Tablet] 40 mg PO BID 03/17/17 Gabapentin [Neurontin 300 mg Capsule] 300 mg PO Q12 03/17/17 Isosorbide Mononitrate [Imdur 30 mg Tablet.er] 30 mg PO DAILY 03/17/17 Lamotrigine [Lamictal 100 mg Tablet] 100 mg PO Q12 03/17/17 Lansoprazole [Prevacid 30 mg Odt Tablet] 30 mg PO ACSUPPER 03/17/17 Losartan Potassium [Cozaar 50 mg Tablet] 50 mg PO Q12 03/17/17 Metformin HCl [Metformin HCl ER] 500 mg PO BIDACBS 03/17/17 Methimazole [Tapazole] 10 mg PO DAILY 03/17/17 Montelukast Sodium [Singulair 10 mg Tablet] 10 mg PO DAILY 03/17/17 Rosuvastatin Calcium [Crestor] 40 mg PO DAILY 03/17/17 Verapamil HCl [Verapamil ER] 120 mg PO DAILY 03/17/17 Allergies/Adverse Reactions: oxcarbazepine [From Trileptal] Allergy (Mild, Verified 03/17/17 23:35) rash Penicillins Allergy (Mild, Verified 03/17/17 13:26) rash Sulfa (Sulfonamide Antibiotics) Allergy (Mild, Verified 03/17/17 13:26) rash Review of Systems Constitutional: ABSENT: chills, fever(s), headache(s), weight gain, weight loss Eyes: ABSENT: visual disturbances Ears: ABSENT: hearing changes Cardiovascular: ABSENT: chest pain, dyspnea on exertion, edema, orthropnea, palpitations Respiratory: ABSENT: cough, hemoptysis Gastrointestinal: ABSENT: abdominal pain, constipation, diarrhea, hematemesis, hematochezia, nausea, vomiting Genitourinary: ABSENT: dysuria, hematuria Musculoskeletal: ABSENT: joint swelling Integumentary: ABSENT: rash, wounds Neurological: ABSENT: abnormal gait, abnormal speech, confusion, dizziness, focal weakness, syncope Psychiatric: ABSENT: anxiety, depression, homidical ideation, suicidal ideation Endocrine: ABSENT: cold intolerance, heat intolerance, polydipsia, polyuria Hematologic/Lymphatic: ABSENT: easy bleeding, easy bruising Physical Exam Vital Signs: Temp Pulse Resp BP Pulse Ox 98.1 F 70 16 122/58 L 99 03/22/17 04:00 03/22/17 07:40 03/22/17 07:40 03/22/17 04:00 03/22/17 04:00 Intake & Output 03/21/17 03/22/17 03/23/17 06:59 06:59 06:59 Intake Total 5673 1403 Output Total 3950 4350 Balance 1723 -2947 Weight 81.9 kg General appearance: PRESENT: no acute distress, well-developed, well-nourished Head exam: PRESENT: atraumatic, normocephalic Eye exam: PRESENT: conjunctiva pink, EOMI, PERRLA. ABSENT: scleral icterus Ear exam: PRESENT: normal external ear exam Mouth exam: PRESENT: moist, tongue midline Neck exam: ABSENT: carotid bruit, JVD, lymphadenopathy, thyromegaly Respiratory exam: PRESENT: clear to auscultation russell. ABSENT: rales, rhonchi, wheezes Cardiovascular exam: PRESENT: RRR. ABSENT: diastolic murmur, rubs, systolic murmur Pulses: PRESENT: normal dorsalis pedis pul Vascular exam: PRESENT: normal capillary refill GI/Abdominal exam: PRESENT: normal bowel sounds, soft. ABSENT: distended, guarding, mass, organolmegaly, rebound, tenderness Rectal exam: PRESENT: deferred Extremities exam: PRESENT: full ROM. ABSENT: calf tenderness, clubbing, pedal edema Neurological exam: PRESENT: alert, awake, oriented to person, oriented to place , oriented to time, oriented to situation, CN II-XII grossly intact. ABSENT: motor sensory deficit Psychiatric exam: PRESENT: appropriate affect, normal mood. ABSENT: homicidal ideation, suicidal ideation Skin exam: PRESENT: dry, intact, warm. ABSENT: cyanosis, rash Results Laboratory Results: 03/22/17 06:46 03/22/17 06:46 03/21/17 03/21/17 03/22/17 08:17 08:17 06:46 WBC 4.7 4.5 RBC 2.68 L 2.62 L Hgb 8.0 L 8.1 L Hct 24.2 L 23.5 L MCV 90 90 MCH 30.0 30.9 MCHC 33.3 34.5 RDW 15.1 H 14.9 H Plt Count 124 L 128 L Seg Neutrophils % 58.4 58.7 Lymphocytes % 22.3 21.4 Monocytes % 8.7 10.3 Eosinophils % 9.6 H 8.8 H Basophils % 1.0 0.8 Absolute Neutrophils 2.8 2.7 Absolute Lymphocytes 1.1 1.0 Absolute Monocytes 0.4 0.5 Absolute Eosinophils 0.5 0.4 Absolute Basophils 0.0 0.0 Sodium 143.9 Potassium 3.8 Chloride 110 H Carbon Dioxide 26 Anion Gap 8 BUN 21 H Creatinine 1.56 H Est GFR ( Amer) 39 L Est GFR (Non-Af Amer) 32 L Glucose 78 Calcium 8.9 03/22/17 06:46 WBC RBC Hgb Hct MCV MCH MCHC RDW Plt Count Seg Neutrophils % Lymphocytes % Monocytes % Eosinophils % Basophils % Absolute Neutrophils Absolute Lymphocytes Absolute Monocytes Absolute Eosinophils Absolute Basophils Sodium 145.2 H Potassium 3.7 Chloride 109 H Carbon Dioxide 26 Anion Gap 10 BUN 19 Creatinine 1.44 H Est GFR ( Amer) 43 L Est GFR (Non-Af Amer) 36 L Glucose 75 Calcium 9.3 03/17/17 03/17/17 03/18/17 18:20 18:20 00:40 Creatine Kinase 55 52 CK-MB (CK-2) 0.62 Troponin I < 0.012 03/18/17 03/18/17 03/18/17 00:40 05:43 05:43 Creatine Kinase 48 CK-MB (CK-2) 0.71 0.74 Troponin I < 0.012 < 0.012 Assessment & Plan - Diagnosis (1) Breast mass Is this a current diagnosis for this admission?: Yes Plan: Overall concerning for primary breast cancer but seems to be biopsy done, awaiting final results, will follow up as an outpatient (2) Lung cancer Qualifiers: Laterality: right Lung location: middle lobe of lung Qualified Code(s): C34.2 - Malignant neoplasm of middle lobe, bronchus or lung Is this a current diagnosis for this admission?: Yes Plan: plan for continued evaluation through clinical trial, she is in a complete response at present from this. - Time Time Spent: Greater than 70 Minutes Critical Time spent with patient: 35 or more minutes - Inpatient Certification Based on my medical assessment, after consideration of the patient's comorbidities, presenting symptoms, or acuity I expect that the services needed warrant INPATIENT care.: Yes I certify that my determination is in accordance with my understanding of Medicare's requirements for reasonable and necessary INPATIENT services [42 CFR 412.3e].: Yes Medical Necessity: Risk of Complication if Not Cared For in Hospital
[2017-03-22] MEDS: DOCUSATE SODIUM 100 MG CAPSULE PO SCH ×2 (11:05→20:00)
[2017-03-22] MEDS: PAROXETINE HCL 20 MG TABLET PO SCH (11:06)
[2017-03-22] MEDS: FLUTICASONE NASAL SPRAY 50 MCG/SPRY 120 SPRAY/16 GM NASL SCH ×2 (11:06→23:10)
[2017-03-22] MEDS: MONTELUKAST SODIUM 10 MG TABLET PO SCH (11:06)
[2017-03-22] MEDS: LAMOTRIGINE 100 MG TABLET PO SCH ×2 (11:07→23:11)
[2017-03-22] MEDS: VERAPAMIL HCL 120 MG TABLET.SA PO SCH (11:08)
[2017-03-22] MEDS: MULTIVITAMINS W-IRON TABLET, CHEWABLE PO SCH (11:08)
[2017-03-22] MEDS: LIDOCAINE 5% (700 MG) TRANSDERMAL ADH..PATCH TP SCH (11:11)
[2017-03-22] MEDS: METHIMAZOLE 5 MG TABLET PO SCH (11:48)
--- NOTE | 2017-03-22 17:48 | PDOC PROGRESS REPORT ---
Subjective Progress Note for:: 03/22/17 Subjective:: The patient is resting in her bed. She has no complaints today. She is anxious to get the results of her breast biopsy back. She is concerned about being discharged home as even if she is ambulating fairly well she has had multiple falls. She lives by herself with very little help. We discussed possible subacute rehabilitation and she is agreeable to this. Overall she denies fever or chills. No chest pain. She does get short of breath at times but does not have a cough. No nausea, vomiting or diarrhea. No abdominal pain. No dysuria, frequency or hematuria. Physical Exam Vital Signs: Temp Pulse Resp BP Pulse Ox 98.3 F 118 H 18 129/84 H 100 03/22/17 16:00 03/22/17 16:00 03/22/17 16:00 03/22/17 16:00 03/22/17 16:00 Intake & Output 03/21/17 03/22/17 03/23/17 06:59 06:59 06:59 Intake Total 5673 1403 Output Total 3950 4350 Balance 1723 -2947 Weight 81.9 kg General appearance: PRESENT: no acute distress, well-developed, well-nourished Head exam: PRESENT: atraumatic, normocephalic Eye exam: PRESENT: conjunctiva pink, EOMI, PERRLA. ABSENT: scleral icterus Mouth exam: PRESENT: moist, tongue midline Respiratory exam: PRESENT: clear to auscultation russell. ABSENT: rales, rhonchi, wheezes Cardiovascular exam: PRESENT: RRR. ABSENT: diastolic murmur, rubs, systolic murmur GI/Abdominal exam: PRESENT: normal bowel sounds, soft. ABSENT: distended, guarding, mass, organolmegaly, rebound, tenderness Rectal exam: PRESENT: deferred Extremities exam: PRESENT: full ROM. ABSENT: calf tenderness, clubbing, pedal edema Neurological exam: PRESENT: alert, awake, oriented to person, oriented to place , oriented to time, oriented to situation, CN II-XII grossly intact. ABSENT: motor sensory deficit Psychiatric exam: PRESENT: appropriate affect, normal mood. ABSENT: homicidal ideation, suicidal ideation Skin exam: PRESENT: dry, intact, warm. ABSENT: cyanosis, rash Results Laboratory Results: 03/22/17 06:46 03/22/17 06:46 03/22/17 03/22/17 06:46 06:46 WBC 4.5 RBC 2.62 L Hgb 8.1 L Hct 23.5 L MCV 90 MCH 30.9 MCHC 34.5 RDW 14.9 H Plt Count 128 L Seg Neutrophils % 58.7 Lymphocytes % 21.4 Monocytes % 10.3 Eosinophils % 8.8 H Basophils % 0.8 Absolute Neutrophils 2.7 Absolute Lymphocytes 1.0 Absolute Monocytes 0.5 Absolute Eosinophils 0.4 Absolute Basophils 0.0 Sodium 145.2 H Potassium 3.7 Chloride 109 H Carbon Dioxide 26 Anion Gap 10 BUN 19 Creatinine 1.44 H Est GFR ( Amer) 43 L Est GFR (Non-Af Amer) 36 L Glucose 75 Calcium 9.3 03/17/17 03/17/17 03/18/17 18:20 18:20 00:40 Creatine Kinase 55 52 CK-MB (CK-2) 0.62 Troponin I < 0.012 03/18/17 03/18/17 03/18/17 00:40 05:43 05:43 Creatine Kinase 48 CK-MB (CK-2) 0.71 0.74 Troponin I < 0.012 < 0.012 Assessment & Plan - Diagnosis (1) Acute renal failure Qualifiers: Acute renal failure type: unspecified Qualified Code(s): N17.9 - Acute kidney failure, unspecified Is this a current diagnosis for this admission?: Yes Plan: Improving. Today her creatinine is 1.44 down from 3.39 at the time of admission. This may be her new baseline. We will check a chemistry panel tomorrow. (2) Lung cancer Qualifiers: Laterality: right Lung location: middle lobe of lung Qualified Code(s): C34.2 - Malignant neoplasm of middle lobe, bronchus or lung Is this a current diagnosis for this admission?: Yes Plan: The patient has non-small cell cancer. Currently in a clinical trial and not receiving treatment. This seems like a good time to pursue rehabilitation to get her strength back. (3) Breast mass Is this a current diagnosis for this admission?: Yes Plan: Status post biopsy. Dr. Gracia is following. This could be followed up as an outpatient. (4) Anemia Plan: Stable. This is an anemia of chronic disease related to her underlying malignancy. (5) COPD (chronic obstructive pulmonary disease) Plan: The patient has oxygen dependent COPD. No evidence of exacerbation. (6) Diabetes mellitus Qualifiers: Diabetes mellitus type: type 2 Diabetes mellitus complication status: with unspecified complications Diabetes mellitus senior living insulin use: without welding specialist use Qualified Code(s): E11.8 - Type 2 diabetes mellitus with unspecified complications Is this a current diagnosis for this admission?: Yes Plan: Continue current regimen. (7) Hyperlipidemia Plan: Stable (8) TOÑA (obstructive sleep apnea) Is this a current diagnosis for this admission?: Yes Plan: Continue CPAP (9) Trigeminal neuralgia Is this a current diagnosis for this admission?: Yes Plan: Continue carbamazepine. (10) Chronic respiratory failure Plan: She is at her baseline oxygen. She has chronic hypoxic respiratory failure secondary to her underlying COPD and lung malignancy. (11) Tobacco abuse Plan: Certainly would be in her best interest to quit smoking. (12) Congestive heart failure Plan: We are trying to get most recent outpatient echocardiogram. I suspect she has diastolic congestive heart failure. (13) Thrombocytopenia Plan: Likely related to underlying malignancy. Stable (14) Hypernatremia Plan: This is quite mild. We will recheck a chemistry panel in the morning. (15) Frequent falls Plan: The patient has been evaluated by physical therapy and they feel like she can ambulate fairly safely. She has had frequent falls at home. I am concerned about her going back into the home environment without further rehabilitation. Going to discuss with the discharge planners whether she would be a candidate for subacute rehabilitation prior to going home. - Time Time Spent with patient: 25-34 minutes - Inpatient Certification Medical Necessity: Other - Inpatient hospitalization remains necessary. I would like to explore with the discharge planners whether this patient would be suitable for subacute rehabilitation. I believe she would benefit from safety training and further physical therapy prior to transitioning back into the home environment due to her frequent falls and the fact that she lives by herself.
--- NOTE | 2017-03-22 20:20 | PDOC PROGRESS REPORT ---
Subjective Progress Note for:: 03/22/17 Subjective:: Patient seen in follow-up for cardiology problems. Currently is stable. She underwent breast biopsy without any complications. Patient does follow-up with Dr. Almanzar. Physical Exam Vital Signs: Temp Pulse Resp BP Pulse Ox 98.3 F 118 H 18 129/84 H 100 03/22/17 16:00 03/22/17 16:00 03/22/17 16:00 03/22/17 16:00 03/22/17 16:00 Intake & Output 03/21/17 03/22/17 03/23/17 06:59 06:59 06:59 Intake Total 5673 1403 1610 Output Total 3950 4350 Balance 1723 -2947 1610 Weight 81.9 kg Exam: GENERAL: well-nourished and in no acute distress. Alert and oriented x3 HEAD: Atraumatic, normocephalic. EYES: Pupils equal round and reactive to light, extraocular movements intact, sclera anicteric, conjunctiva are normal. ENT: TMs normal, nares patent, oropharynx clear without exudates. Moist mucous membranes. No oral ulcerations or bleeding gums noted NECK: supple without lymphadenopathy. Trachea is central. No cervical or axillary lymphadenopathy noted. Carotids are 2+, JVD WNL LUNGS: Respiration seems nonlabored, no significant accessory muscle action noted. Breath sounds clear to auscultation bilaterally and equal noted. No wheezes rales or rhonchi noted. No significant dullness noted on percussion. CHEST: Palpation of the chest wall shows no significant chest wall tenderness. No other significant abnormalities noted. HEART: [place] [employer]GER [employer]ING, No PSH, 1/6 SATISH aortic area, 1/6 azar systolic murmur mitral area, no rubs, no gallops. ABDOMEN: Soft, no significant tenderness appreciated, normoactive bowel sounds. No guarding, no rebound. No rigidity noted . No masses appreciated. EXTREMITIES: Pedal pulses are 1-2+, no calf tenderness noted. No clubbing or cyanosis.trace pedal edema noted NEUROLOGICAL: Focused neurological exam showed no significant neurologic deficit. Normal speech, no focal weakness appreciated. PSYCH: Normal mood, normal affect. Judgment and insight within normal limits. SKIN: No significant ecchymosis, rash, ulcerations or signs of pruritus noted. MUSCULOSKELETAL EXAM: No significant joint swelling noted. Results Laboratory Results: 03/22/17 06:46 03/22/17 06:46 03/22/17 03/22/17 06:46 06:46 WBC 4.5 RBC 2.62 L Hgb 8.1 L Hct 23.5 L MCV 90 MCH 30.9 MCHC 34.5 RDW 14.9 H Plt Count 128 L Seg Neutrophils % 58.7 Lymphocytes % 21.4 Monocytes % 10.3 Eosinophils % 8.8 H Basophils % 0.8 Absolute Neutrophils 2.7 Absolute Lymphocytes 1.0 Absolute Monocytes 0.5 Absolute Eosinophils 0.4 Absolute Basophils 0.0 Sodium 145.2 H Potassium 3.7 Chloride 109 H Carbon Dioxide 26 Anion Gap 10 BUN 19 Creatinine 1.44 H Est GFR ( Amer) 43 L Est GFR (Non-Af Amer) 36 L Glucose 75 Calcium 9.3 03/17/17 18:20 Blood Blood Culture - Final NO GROWTH IN 5 DAYS 03/17/17 03/17/17 03/18/17 18:20 18:20 00:40 Creatine Kinase 55 52 CK-MB (CK-2) 0.62 Troponin I < 0.012 03/18/17 03/18/17 03/18/17 00:40 05:43 05:43 Creatine Kinase 48 CK-MB (CK-2) 0.71 0.74 Troponin I < 0.012 < 0.012 Assessment & Plan - Diagnosis (2) COPD (chronic obstructive pulmonary disease) Qualifiers: Emphysema type: unspecified Is this a current diagnosis for this admission?: Yes (3) Congestive heart failure Qualifiers: Congestive heart failure type: unspecified congestive heart failure type Is this a current diagnosis for this admission?: No (4) Diabetes mellitus Qualifiers: Diabetes mellitus type: type 2 Diabetes mellitus complication status: with unspecified complications Diabetes mellitus long-term insulin use: without yard pipe grader use Qualified Code(s): E11.8 - Type 2 diabetes mellitus with unspecified complications Is this a current diagnosis for this admission?: Yes (6) TOÑA (obstructive sleep apnea) Is this a current diagnosis for this admission?: Yes (7) Acute on chronic renal failure Qualifiers: Acute renal failure type: unspecified Chronic kidney disease stage: unspecified stage Qualified Code(s): N17.9 - Acute kidney failure, unspecified ; N18.9 - Chronic kidney disease, unspecified; N18.9 - Chronic kidney disease, unspecified Is this a current diagnosis for this admission?: Yes - Notes Notes: Patient generally stable. Cardiac telemetry strips reviewed shows no significant cardiac dysrhythmia. Blood pressures has been stable. Renal functions slowly improving. Continue current management plans. As regards CHF patient seems well volume make. However keep an eye on any fluid overload. Patient tolerated by her breast biopsy without significant problems. At this time patient would benefit from continuing physical therapy. Have recommended that nurses obtain orthostatic blood pressure. - Time Time with patient: 15-25 minutes - CODE STATUS was discussed, patient remains full code. Multiple medical problems were addressed. More than 50% of the time spent coordinating care, discussing management plans with involved caregivers. Management plans discussed with involved personnels. Medical decision making was of moderate complexity, patient's has multiple comorbidities. Medications reviewed and adjusted accordingly: Yes
[2017-03-22] MEDS: LORATADINE 10 MG TABLET PO SCH (23:10)
[2017-03-22] MEDS: RISPERIDONE 1 MG TABLET PO SCH (23:11)
[2017-03-22] MEDS: PHARMACY COMMUNICATION ORDER MC SCH (23:12)
[2017-03-22] MEDS: OXYCODONE-ACETAMINOPHEN 5-325 MG TABLET PO PRN (23:27)
[2017-03-22] MEDS: PROMETHAZINE HCL 25 MG TABLET PO PRN (23:27)
[2017-03-23 06:13] LABS: ABSOLUTE EOSINOPHILS # (AUTO) 0.4 10^3/uL (0.0-0.6); ABSOLUTE LYMPHOCYTES (AUTO) 1.1 10^3/uL (0.5-4.7); ABSOLUTE MONOCYTES (AUTO) 0.5 10^3/uL (0.1-1.4); BASOPHILS % (AUTO) 0.7 % (0-2); EOSINOPHILS % (AUTO) 8.2 % (0-6); HEMATOCRIT 24.2 % (36.0-47.0); HEMOGLOBIN 8.4 g/dL (12.0-15.5); LYMPHOCYTES % (AUTO) 21.7 % (13-45); MEAN CORPUSCULAR HEMOGLOBIN 31.1 pg (27.0-33.4); MEAN CORPUSCULAR HGB CONC 34.8 g/dL (32.0-36.0); MEAN CORPUSCULAR VOLUME 89 fl (80-97); MONOCYTES % (AUTO) 9.9 % (3-13); RED BLOOD COUNT 2.71 10^6/uL (3.72-5.28); SEGMENTED NEUTROPHILS % (AUTO) 59.5 % (42-78); WHITE BLOOD COUNT 5.1 10^3/uL (4.0-10.5)
[2017-03-23] MEDS: LANSOPRAZOLE 30 MG TAB.RAP.DR PO SCH (06:32)
[2017-03-23 06:45] LABS: ALANINE AMINOTRANSFERASE 32 U/L (9-52); ALBUMIN 3.4 g/dL (3.5-5.0); ALKALINE PHOSPHATASE 72 U/L (38-126); ANION GAP 11 (5-19); ASPARTATE AMINO TRANSFERASE 20 U/L (14-36); BILIRUBIN,DIRECT 0.4 mg/dL (0.0-0.4); BILIRUBIN,TOTAL 0.4 mg/dL (0.2-1.3); BLOOD UREA NITROGEN 21 mg/dL (7-20); CALCIUM 9.2 mg/dL (8.4-10.2); CARBON DIOXIDE 26 mmol/L (22-30); CHLORIDE 108 mmol/L (98-107); CREATININE RESULT 1.46 mg/dL (0.52-1.25); GLUCOSE 85 mg/dL (75-110); MAGNESIUM 1.8 mg/dL (1.6-2.3); POTASSIUM 3.8 mmol/L (3.6-5.0); SODIUM 144.5 mmol/L (137-145)
[2017-03-23] MEDS: IPRATROPIUM/ALBUTEROL 0.5-2.5 MG/3 ML AMPUL NEB SCH ×3 (08:00→19:46)
--- NOTE | 2017-03-23 08:33 | PDOC PROGRESS REPORT ---
Subjective Progress Note for:: 03/23/17 Subjective:: No acute events overnight, yesterday had a long conversation with her daughter Camelia, she expressed some concerns, that I have as well, of her mother's ability to go home. I believe she is debilitated and she would benefit from rehab stay. There is also some element of dementia ongoing. There was a concern with the recent breast biopsy, that if she went to rehab, she would be able to get cancer treatment. I mentioned to her that it is going to be 7-10 days before we even know what the biopsy results are, and even if we do we can let her get stronger through rehab before we make a decision on next steps of care. In terms of her lung cancer, she is only on the observation arm of the clinical trial, she recently had CT imaging done just about 4 weeks ago, and she remains in a complete remission from that standpoint. Physical Exam Vital Signs: Temp Pulse Resp BP Pulse Ox 98.1 F 82 17 130/68 H 95 03/23/17 03:42 03/23/17 03:42 03/23/17 03:42 03/23/17 03:42 03/23/17 03:42 Intake & Output 03/22/17 03/23/17 03/24/17 06:59 06:59 06:59 Intake Total 1403 2420 Output Total 4350 Balance -2947 2420 Weight 80.6 kg General appearance: PRESENT: no acute distress, well-developed, well-nourished Head exam: PRESENT: atraumatic, normocephalic Eye exam: PRESENT: conjunctiva pink, EOMI, PERRLA. ABSENT: scleral icterus Ear exam: PRESENT: normal external ear exam Mouth exam: PRESENT: moist, tongue midline Neck exam: ABSENT: carotid bruit, JVD, lymphadenopathy, thyromegaly Respiratory exam: PRESENT: clear to auscultation russlel. ABSENT: rales, rhonchi, wheezes Cardiovascular exam: PRESENT: RRR. ABSENT: diastolic murmur, rubs, systolic murmur Pulses: PRESENT: normal dorsalis pedis pul Vascular exam: PRESENT: normal capillary refill GI/Abdominal exam: PRESENT: normal bowel sounds, soft. ABSENT: distended, guarding, mass, organolmegaly, rebound, tenderness Rectal exam: PRESENT: deferred Extremities exam: PRESENT: full ROM. ABSENT: calf tenderness, clubbing, pedal edema Neurological exam: PRESENT: alert, awake, oriented to person, oriented to place , oriented to time, oriented to situation, CN II-XII grossly intact. ABSENT: motor sensory deficit Psychiatric exam: PRESENT: appropriate affect, normal mood. ABSENT: homicidal ideation, suicidal ideation Skin exam: PRESENT: dry, intact, warm. ABSENT: cyanosis, rash Results Laboratory Results: 03/23/17 05:23 03/23/17 05:23 03/23/17 03/23/17 05:23 05:23 WBC 5.1 RBC 2.71 L Hgb 8.4 L Hct 24.2 L MCV 89 MCH 31.1 MCHC 34.8 RDW 15.0 H Plt Count 139 L Seg Neutrophils % 59.5 Lymphocytes % 21.7 Monocytes % 9.9 Eosinophils % 8.2 H Basophils % 0.7 Absolute Neutrophils 3.0 Absolute Lymphocytes 1.1 Absolute Monocytes 0.5 Absolute Eosinophils 0.4 Absolute Basophils 0.0 Sodium 144.5 Potassium 3.8 Chloride 108 H Carbon Dioxide 26 Anion Gap 11 BUN 21 H Creatinine 1.46 H Est GFR ( Amer) 42 L Est GFR (Non-Af Amer) 35 L Glucose 85 Calcium 9.2 Magnesium 1.8 Total Bilirubin 0.4 AST 20 ALT 32 Alkaline Phosphatase 72 Total Protein 6.0 L Albumin 3.4 L 03/17/17 18:20 Blood Blood Culture - Final NO GROWTH IN 5 DAYS 03/17/17 03/17/17 03/18/17 18:20 18:20 00:40 Creatine Kinase 55 52 CK-MB (CK-2) 0.62 Troponin I < 0.012 03/18/17 03/18/17 03/18/17 00:40 05:43 05:43 Creatine Kinase 48 CK-MB (CK-2) 0.71 0.74 Troponin I < 0.012 < 0.012 Assessment & Plan - Diagnosis (1) Breast mass Is this a current diagnosis for this admission?: Yes Plan: Awaiting biopsy results (2) Lung cancer Qualifiers: Laterality: right Lung location: middle lobe of lung Qualified Code(s): C34.2 - Malignant neoplasm of middle lobe, bronchus or lung Is this a current diagnosis for this admission?: Yes Plan: At present no treatment, only observation (3) Physical deconditioning Is this a current diagnosis for this admission?: Yes Plan: Deconditioning from recent hospital stay as well as recent falls, renal failure , I believe she would benefit from rehab stay. - Time Time Spent with patient: 35 or more minutes Critical Time spent with patient: 35 or more minutes Disposition: I had a long discussion with the patient, she would agree to rehab stay. Her ultimate goal would be to get home. I believe both the patient as well as the family have this goal, and I do believe she could attain this goal - Inpatient Certification Based on my medical assessment, after consideration of the patient's comorbidities, presenting symptoms, or acuity I expect that the services needed warrant INPATIENT care.: Yes I certify that my determination is in accordance with my understanding of Medicare's requirements for reasonable and necessary INPATIENT services [42 CFR 412.3e].: Yes Medical Necessity: Risk of Complication if Not Cared For in Hospital
[2017-03-23] MEDS: PAROXETINE HCL 20 MG TABLET PO SCH (09:21)
[2017-03-23] MEDS: DOCUSATE SODIUM 100 MG CAPSULE PO SCH ×2 (09:21→18:06)
[2017-03-23] MEDS: FLUTICASONE NASAL SPRAY 50 MCG/SPRY 120 SPRAY/16 GM NASL SCH ×2 (09:21→22:17)
[2017-03-23] MEDS: MONTELUKAST SODIUM 10 MG TABLET PO SCH (09:21)
[2017-03-23] MEDS: LAMOTRIGINE 100 MG TABLET PO SCH ×2 (09:22→22:16)
[2017-03-23] MEDS: LIDOCAINE 5% (700 MG) TRANSDERMAL ADH..PATCH TP SCH (09:23)
[2017-03-23] MEDS: METHIMAZOLE 5 MG TABLET PO SCH (09:24)
[2017-03-23] MEDS: VERAPAMIL HCL 120 MG TABLET.SA PO SCH (09:24)
[2017-03-23] MEDS: MULTIVITAMINS W-IRON TABLET, CHEWABLE PO SCH (09:25)
[2017-03-23] MEDS ORDERED: CARBAMAZEPINE 200 MG TABLET PO ONE (10:00)
--- NOTE | 2017-03-23 15:25 | PDOC PROGRESS REPORT ---
Subjective Progress Note for:: 03/23/17 Subjective:: The patient is doing fairly well today. She has discussed possible subacute rehabilitation with her daughter and is agreeable to go. The discharge planners have her referred out facilities. Her primary oncologist is in agreement with this plan as well. Overnight she reports no fever or chills. No chest pain, shortness of breath or heart palpitations. No nausea, vomiting or diarrhea. No abdominal pain. No dysuria, frequency or hematuria. Physical Exam Vital Signs: Temp Pulse Resp BP Pulse Ox 98.4 F 68 16 119/49 L 96 03/23/17 12:00 03/23/17 14:20 03/23/17 14:20 03/23/17 12:00 03/23/17 12:00 Intake & Output 03/22/17 03/23/17 03/24/17 06:59 06:59 06:59 Intake Total 1403 2420 Output Total 4350 Balance -2947 2420 Weight 80.6 kg General appearance: PRESENT: no acute distress, well-developed, well-nourished Head exam: PRESENT: atraumatic, normocephalic Respiratory exam: PRESENT: clear to auscultation russell. ABSENT: rales, rhonchi, wheezes Cardiovascular exam: PRESENT: RRR. ABSENT: diastolic murmur, rubs, systolic murmur Rectal exam: PRESENT: deferred Extremities exam: PRESENT: full ROM. ABSENT: calf tenderness, clubbing, pedal edema Neurological exam: PRESENT: alert, awake, oriented to person, oriented to place , oriented to time, oriented to situation, CN II-XII grossly intact. ABSENT: motor sensory deficit Psychiatric exam: PRESENT: appropriate affect, normal mood. ABSENT: homicidal ideation, suicidal ideation Skin exam: PRESENT: dry, intact, warm. ABSENT: cyanosis, rash Results Laboratory Results: 03/23/17 05:23 03/23/17 05:23 03/23/17 03/23/17 05:23 05:23 WBC 5.1 RBC 2.71 L Hgb 8.4 L Hct 24.2 L MCV 89 MCH 31.1 MCHC 34.8 RDW 15.0 H Plt Count 139 L Seg Neutrophils % 59.5 Lymphocytes % 21.7 Monocytes % 9.9 Eosinophils % 8.2 H Basophils % 0.7 Absolute Neutrophils 3.0 Absolute Lymphocytes 1.1 Absolute Monocytes 0.5 Absolute Eosinophils 0.4 Absolute Basophils 0.0 Sodium 144.5 Potassium 3.8 Chloride 108 H Carbon Dioxide 26 Anion Gap 11 BUN 21 H Creatinine 1.46 H Est GFR ( Amer) 42 L Est GFR (Non-Af Amer) 35 L Glucose 85 Calcium 9.2 Magnesium 1.8 Total Bilirubin 0.4 AST 20 ALT 32 Alkaline Phosphatase 72 Total Protein 6.0 L Albumin 3.4 L 03/17/17 18:20 Blood Blood Culture - Final NO GROWTH IN 5 DAYS 03/17/17 03/17/17 03/18/17 18:20 18:20 00:40 Creatine Kinase 55 52 CK-MB (CK-2) 0.62 Troponin I < 0.012 03/18/17 03/18/17 03/18/17 00:40 05:43 05:43 Creatine Kinase 48 CK-MB (CK-2) 0.71 0.74 Troponin I < 0.012 < 0.012 Assessment & Plan - Diagnosis (1) Acute renal failure Qualifiers: Acute renal failure type: unspecified Qualified Code(s): N17.9 - Acute kidney failure, unspecified Is this a current diagnosis for this admission?: Yes Plan: Improving. Today her creatinine is 1.46 down from 3.39 at the time of admission. This may be her new baseline. We will check a chemistry panel tomorrow. (2) Lung cancer Qualifiers: Laterality: right Lung location: middle lobe of lung Qualified Code(s): C34.2 - Malignant neoplasm of middle lobe, bronchus or lung Is this a current diagnosis for this admission?: Yes Plan: The patient has non-small cell lung cancer. Currently in a clinical trial and not receiving treatment. This seems like a good time to pursue rehabilitation to get her strength back. (3) Breast mass Is this a current diagnosis for this admission?: Yes Plan: Status post biopsy. Dr. Gracia is following. He has stated that he will follow her up as an outpatient and is quite supportive of pursuing a subacute rehabilitation stay prior to even considering therapy if her biopsy is positive. (4) Anemia Plan: Stable. This is an anemia of chronic disease related to her underlying malignancy. Her hemoglobin is stable (5) COPD (chronic obstructive pulmonary disease) Plan: The patient has oxygen dependent COPD. No evidence of exacerbation. (6) Diabetes mellitus Qualifiers: Diabetes mellitus type: type 2 Diabetes mellitus complication status: with unspecified complications Diabetes mellitus long term care phlebotomist insulin use: without long term care phlebotomist use Qualified Code(s): E11.8 - Type 2 diabetes mellitus with unspecified complications Is this a current diagnosis for this admission?: Yes Plan: Continue current regimen. (7) Hyperlipidemia Plan: Stable (8) TOÑA (obstructive sleep apnea) Is this a current diagnosis for this admission?: Yes Plan: Continue CPAP (9) Trigeminal neuralgia Is this a current diagnosis for this admission?: Yes Plan: Continue carbamazepine. (10) Chronic respiratory failure Plan: She is at her baseline oxygen. She has chronic hypoxic respiratory failure secondary to her underlying COPD and lung malignancy. (11) Tobacco abuse Plan: Certainly would be in her best interest to quit smoking. (12) Congestive heart failure Plan: We are trying to get most recent outpatient echocardiogram. I suspect she has diastolic congestive heart failure. (13) Thrombocytopenia Plan: Likely related to underlying malignancy. Stable (14) Hypernatremia Plan: Resolved - Time Time Spent with patient: 25-34 minutes - Inpatient Certification Medical Necessity: Other - Inpatient hospitalization remains necessary for disposition. The patient is waiting on placement for subacute rehabilitation. She will be transitioned to a facility as soon as a bed is found.
[2017-03-23] MEDS: CARBAMAZEPINE 200 MG TABLET PO SCH ×2 (18:06→22:17)
--- NOTE | 2017-03-23 19:55 | PDOC PROGRESS REPORT ---
Subjective Progress Note for:: 03/23/17 Subjective:: Patient seen in follow-up for cardiology problems. Currently is stable. She underwent breast biopsy without any complications. Patient does follow-up with Dr. Almanzar. Patient doing well from cardiac standpoint. She is waiting to go to a rehab bed. Physical Exam Vital Signs: Temp Pulse Resp BP Pulse Ox 98.0 F 92 18 135/59 H 95 03/23/17 16:00 03/23/17 16:00 03/23/17 16:00 03/23/17 16:00 03/23/17 16:00 Intake & Output 03/22/17 03/23/17 03/24/17 06:59 06:59 06:59 Intake Total 1403 2420 1245 Output Total 4350 Balance -2947 2420 1245 Weight 80.6 kg Exam: GENERAL: well-nourished and in no acute distress. Alert and oriented x3 HEAD: Atraumatic, normocephalic. EYES: Pupils equal round and reactive to light, extraocular movements intact, sclera anicteric, conjunctiva are normal. ENT: TMs normal, nares patent, oropharynx clear without exudates. Moist mucous membranes. No oral ulcerations or bleeding gums noted NECK: supple without lymphadenopathy. Trachea is central. No cervical or axillary lymphadenopathy noted. Carotids are 2+, JVD WNL LUNGS: Respiration seems nonlabored, no significant accessory muscle action noted. Breath sounds clear to auscultation bilaterally and equal noted. No wheezes rales or rhonchi noted. No significant dullness noted on percussion. CHEST: Palpation of the chest wall shows no significant chest wall tenderness. No other significant abnormalities noted. 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 ABDOMEN: Soft, no significant tenderness appreciated, normoactive bowel sounds. No guarding, no rebound. No rigidity noted . No masses appreciated. EXTREMITIES: Pedal pulses are 1-2+, no calf tenderness noted. No clubbing or cyanosis.trace to 1+ pedal edema noted NEUROLOGICAL: Focused neurological exam showed no significant neurologic deficit. Normal speech, no focal weakness appreciated. PSYCH: Normal mood, normal affect. Judgment and insight within normal limits. SKIN: No significant ecchymosis, rash, ulcerations or signs of pruritus noted. MUSCULOSKELETAL EXAM: No significant joint swelling noted. Results Laboratory Results: 03/23/17 05:23 03/23/17 05:23 03/23/17 03/23/17 05:23 05:23 WBC 5.1 RBC 2.71 L Hgb 8.4 L Hct 24.2 L MCV 89 MCH 31.1 MCHC 34.8 RDW 15.0 H Plt Count 139 L Seg Neutrophils % 59.5 Lymphocytes % 21.7 Monocytes % 9.9 Eosinophils % 8.2 H Basophils % 0.7 Absolute Neutrophils 3.0 Absolute Lymphocytes 1.1 Absolute Monocytes 0.5 Absolute Eosinophils 0.4 Absolute Basophils 0.0 Sodium 144.5 Potassium 3.8 Chloride 108 H Carbon Dioxide 26 Anion Gap 11 BUN 21 H Creatinine 1.46 H Est GFR ( Amer) 42 L Est GFR (Non-Af Amer) 35 L Glucose 85 Calcium 9.2 Magnesium 1.8 Total Bilirubin 0.4 AST 20 ALT 32 Alkaline Phosphatase 72 Total Protein 6.0 L Albumin 3.4 L 03/17/17 18:20 Blood Blood Culture - Final NO GROWTH IN 5 DAYS 03/17/17 03/17/17 03/18/17 18:20 18:20 00:40 Creatine Kinase 55 52 CK-MB (CK-2) 0.62 Troponin I < 0.012 03/18/17 03/18/17 03/18/17 00:40 05:43 05:43 Creatine Kinase 48 CK-MB (CK-2) 0.71 0.74 Troponin I < 0.012 < 0.012 EKG Comments: Telemetry strip shows sinus bradycardia without any sustained tachycardia or bradycardia arrhythmias. Assessment & Plan - Diagnosis (1) Frequent falls Is this a current diagnosis for this admission?: Yes (2) COPD (chronic obstructive pulmonary disease) Qualifiers: Emphysema type: unspecified Is this a current diagnosis for this admission?: Yes (3) Diabetes mellitus Qualifiers: Diabetes mellitus type: type 2 Diabetes mellitus complication status: with unspecified complications Diabetes mellitus senior living insulin use: without senior living use Qualified Code(s): E11.8 - Type 2 diabetes mellitus with unspecified complications Is this a current diagnosis for this admission?: Yes (4) Frequent falls Is this a current diagnosis for this admission?: Yes (5) Physical deconditioning Is this a current diagnosis for this admission?: Yes (6) TOÑA (obstructive sleep apnea) Is this a current diagnosis for this admission?: Yes (7) Acute on chronic renal failure Qualifiers: Acute renal failure type: unspecified Chronic kidney disease stage: unspecified stage Qualified Code(s): N17.9 - Acute kidney failure, unspecified ; N18.9 - Chronic kidney disease, unspecified; N18.9 - Chronic kidney disease, unspecified Is this a current diagnosis for this admission?: Yes - Notes Notes: Patient has remained generally stable. Renal functions has improved. Patient has gained in strength. Telemetry strips reviewed no significant cardiac dysrhythmia. Blood pressures has remained reasonably stable. At this point will sign off. Patient encouraged to follow-up with her primary care physician and primary care medical art therapist. Patient remains compensated as regards CHF. - Time Time with patient: 15-25 minutes Medications reviewed and adjusted accordingly: Yes
[2017-03-23] MEDS: LORATADINE 10 MG TABLET PO SCH (22:17)
[2017-03-23] MEDS: RISPERIDONE 1 MG TABLET PO SCH (22:17)
[2017-03-23] MEDS: PHARMACY COMMUNICATION ORDER MC SCH (22:18)
[2017-03-23] MEDS: PROMETHAZINE HCL 25 MG TABLET PO PRN (23:55)
[2017-03-23] MEDS: OXYCODONE-ACETAMINOPHEN 5-325 MG TABLET PO PRN (23:55)
[2017-03-24] MEDS ORDERED: LACTULOSE SYRUP 20 GM/30 ML UDCUP PO PRN (01:37)
[2017-03-24] MEDS: LANSOPRAZOLE 30 MG TAB.RAP.DR PO SCH (07:25)
[2017-03-24] MEDS: CARBAMAZEPINE 200 MG TABLET PO SCH ×3 (07:45→22:07)
[2017-03-24] MEDS: IPRATROPIUM/ALBUTEROL 0.5-2.5 MG/3 ML AMPUL NEB SCH ×3 (08:21→19:48)
--- NOTE | 2017-03-24 09:03 | PDOC PROGRESS REPORT ---
Subjective Progress Note for:: 03/24/17 Subjective:: No acute events overnight, patient looks good today, we got breast biopsy results back, only fibroadenomatous tissue, no malignancy noted. Physical Exam Vital Signs: Temp Pulse Resp BP Pulse Ox 97.6 F 66 18 119/62 96 03/24/17 07:39 03/24/17 07:39 03/24/17 07:39 03/24/17 07:39 03/24/17 07:39 Intake & Output 03/23/17 03/24/17 03/25/17 06:59 06:59 06:59 Intake Total 2420 1445 Balance 2420 1445 Weight 80.6 kg 77.7 kg General appearance: PRESENT: no acute distress, well-developed, well-nourished Head exam: PRESENT: atraumatic, normocephalic Eye exam: PRESENT: conjunctiva pink, EOMI, PERRLA. ABSENT: scleral icterus Ear exam: PRESENT: normal external ear exam Mouth exam: PRESENT: moist, tongue midline Neck exam: ABSENT: carotid bruit, JVD, lymphadenopathy, thyromegaly Respiratory exam: PRESENT: clear to auscultation russell. ABSENT: rales, rhonchi, wheezes Cardiovascular exam: PRESENT: RRR. ABSENT: diastolic murmur, rubs, systolic murmur Pulses: PRESENT: normal dorsalis pedis pul Vascular exam: PRESENT: normal capillary refill GI/Abdominal exam: PRESENT: normal bowel sounds, soft. ABSENT: distended, guarding, mass, organolmegaly, rebound, tenderness Rectal exam: PRESENT: deferred Extremities exam: PRESENT: full ROM. ABSENT: calf tenderness, clubbing, pedal edema Neurological exam: PRESENT: alert, awake, oriented to person, oriented to place , oriented to time, oriented to situation, CN II-XII grossly intact. ABSENT: motor sensory deficit Psychiatric exam: PRESENT: appropriate affect, normal mood. ABSENT: homicidal ideation, suicidal ideation Skin exam: PRESENT: dry, intact, warm. ABSENT: cyanosis, rash Results Laboratory Results: 03/23/17 05:23 03/23/17 05:23 03/17/17 03/17/17 03/18/17 18:20 18:20 00:40 Creatine Kinase 55 52 CK-MB (CK-2) 0.62 Troponin I < 0.012 03/18/17 03/18/17 03/18/17 00:40 05:43 05:43 Creatine Kinase 48 CK-MB (CK-2) 0.71 0.74 Troponin I < 0.012 < 0.012 Assessment & Plan - Diagnosis (1) Breast mass Is this a current diagnosis for this admission?: Yes Plan: Benign biopsy, no further workup needed, we may do an earlier mammography in 6 months rather than 12. We will decide that as an outpatient. (2) Lung cancer Qualifiers: Laterality: right Lung location: middle lobe of lung Qualified Code(s): C34.2 - Malignant neoplasm of middle lobe, bronchus or lung Is this a current diagnosis for this admission?: Yes Plan: Patient currently on surveillance arm of clinical trial, no further treatment plan is present, we will see her back after discharge from rehab facility as an outpatient (3) Physical deconditioning Is this a current diagnosis for this admission?: Yes Plan: Hopeful rehab placement soon - Time Time Spent with patient: 35 or more minutes Critical Time spent with patient: 35 or more minutes Anticipated discharge: Acute Rehab - Inpatient Certification Based on my medical assessment, after consideration of the patient's comorbidities, presenting symptoms, or acuity I expect that the services needed warrant INPATIENT care.: Yes I certify that my determination is in accordance with my understanding of Medicare's requirements for reasonable and necessary INPATIENT services [42 CFR 412.3e].: Yes Medical Necessity: Risk of Complication if Not Cared For in Hospital
--- NOTE | 2017-03-24 10:08 | PDOC CONSULTATION ---
Consultation Consult Date: 03/21/17 Attending physician:: APARNA MARTINEZ Consult reason:: Preop cardiovascular examination History of Present Illness Admission Date/PCP: 03/17/17 17:42 ELISE GARCIA DO Patient complains of: Recurrent falls and confusion History of Present Illness: TAINA MONTEJO is a 76 year old female patient who lives alone complains of aching all over particularly right ribs and right low back for the past 2 days. She fell 2 times today at home. She reports frequent falls for total of 6 times this week. There is no definite loss of consciousness. Her legs just give away. She did have outpatient x-rays of her ribs and lumbar back yesterday which were unremarkable. Her daughter called to check on her today and noted that her voice was a little slurred and she seemed a little confused compared to baseline. The patient does drive herself around normally. The patient has a history of hypertension, ulcers, osteoarthritis, renal stones , COPD, depression, and has had stage IV lung cancer currently in remission after chemotherapy. There never were metastases to the brain by history. Patient has been noted to be confused. Patient noted to have breast mass and is due for biopsy. I was asked to evaluate patient. The whole history was reviewed, supplemented and confirmed. Past Medical History Cardiac Medical History: Reports: Other - Pt's daughter reports pt's blood pressure generally runs about 110 systolic Denies: Coronary Artery Disease, Myocardial Infarction, Hypertension Pulmonary Medical History: Reports: Asthma, Bronchitis, Chronic Obstructive Pulmonary Disease (COPD), Pneumonia Denies: Tuberculosis EENT Medical History: Reports: None Neurological Medical History: Reports: None Denies: Seizures Endocrine Medical History: Reports: None Denies: Diabetes Mellitus Type 2 Renal/ Medical History: Malignancy Medical History: Reports: Lung Cancer - Stage IV lung cancer, treated by chemotherapy. Currently in remission. GI Medical History: Musculoskeltal Medical History: Reports: Arthritis Psychiatric Medical History: Reports: Depression Hematology: Reports: Anemia Denies: Sickle Cell Disease, Bleeding Tendencies Past Surgical History Past Surgical History: Reports: Appendectomy, Hysterectomy, Orthopedic Surgery - R knee, bilateral hands Denies: Amputation Social History Information Source: Patient Lives with: Alone Smoking Status: Current Every Day Smoker Cigarettes Packs Per Day: 0.5 Frequency of Alcohol Use: None Hx Recreational Drug Use: No Drugs: None Hx Prescription Drug Abuse: No - Advance Directive Resuscitation Status: Full Code Family History Family History: Reviewed & Not Pertinent Parental Family History Reviewed: Yes Children Family History Reviewed: Yes Sibling(s) Family History Reviewed.: Yes Medication/Allergy Home Medications: Aliskiren Hemifumarate [Tekturna 300 mg Tablet] 300 mg PO DAILY 03/17/17 Carbamazepine [Tegretol 200 mg Tablet] 200 mg PO Q8 03/17/17 Cetirizine HCl [Zyrtec 10 mg Tablet] 10 mg PO DAILY 03/17/17 Furosemide [Lasix 40 mg Tablet] 40 mg PO BID 03/17/17 Gabapentin [Neurontin 300 mg Capsule] 300 mg PO Q12 03/17/17 Isosorbide Mononitrate [Imdur 30 mg Tablet.er] 30 mg PO DAILY 03/17/17 Lamotrigine [Lamictal 100 mg Tablet] 100 mg PO Q12 03/17/17 Lansoprazole [Prevacid 30 mg Odt Tablet] 30 mg PO ACSUPPER 03/17/17 Losartan Potassium [Cozaar 50 mg Tablet] 50 mg PO Q12 03/17/17 Metformin HCl [Metformin HCl ER] 500 mg PO BIDACBS 03/17/17 Methimazole [Tapazole] 10 mg PO DAILY 03/17/17 Montelukast Sodium [Singulair 10 mg Tablet] 10 mg PO DAILY 03/17/17 Rosuvastatin Calcium [Crestor] 40 mg PO DAILY 03/17/17 Verapamil HCl [Verapamil ER] 120 mg PO DAILY 03/17/17 Allergies/Adverse Reactions: oxcarbazepine [From Trileptal] Allergy (Mild, Verified 03/17/17 23:35) rash Penicillins Allergy (Mild, Verified 03/17/17 13:26) rash Sulfa (Sulfonamide Antibiotics) Allergy (Mild, Verified 03/17/17 13:26) rash Physical Exam Vital Signs: Temp Pulse Resp BP Pulse Ox 98.7 F 70 18 114/70 98 03/21/17 18:07 03/21/17 19:42 03/21/17 19:42 03/21/17 18:07 03/21/17 19:42 Intake & Output 03/20/17 03/21/17 03/22/17 06:59 06:59 06:59 Intake Total 2903 5673 1203 Output Total 900 3950 2050 Balance 2008 1723 -577 Weight 79.6 kg 81.9 kg Exam: GENERAL: well-nourished and in no acute distress. Alert and oriented x3 HEAD: Atraumatic, normocephalic. EYES: Pupils equal round and reactive to light, extraocular movements intact, sclera anicteric, conjunctiva are normal. ENT: TMs normal, nares patent, oropharynx clear without exudates. Moist mucous membranes. No oral ulcerations or bleeding gums noted NECK: supple without lymphadenopathy. Trachea is central. No cervical or axillary lymphadenopathy noted. Carotids are 2+, JVD WNL LUNGS: Respiration seems nonlabored, no significant accessory muscle action noted. Breath sounds clear to auscultation bilaterally and equal noted. No wheezes rales or rhonchi noted. No significant dullness noted on percussion. CHEST: Palpation of the chest wall shows no significant chest wall tenderness. No other significant abnormalities noted. 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 ABDOMEN: Soft, no significant tenderness appreciated, normoactive bowel sounds. No guarding, no rebound. No rigidity noted . No masses appreciated. EXTREMITIES: Pedal pulses are 1-2+, no calf tenderness noted. No clubbing or cyanosis.trace to 1+ pedal edema noted NEUROLOGICAL: Focused neurological exam showed no significant neurologic deficit. Normal speech, no focal weakness appreciated. PSYCH: Normal mood, normal affect. Judgment and insight within normal limits. SKIN: No significant ecchymosis, rash, ulcerations or signs of pruritus noted. MUSCULOSKELETAL EXAM: No significant joint swelling noted. Results Laboratory Results: 03/21/17 08:17 03/21/17 08:17 03/21/17 03/21/17 08:17 08:17 WBC 4.7 RBC 2.68 L Hgb 8.0 L Hct 24.2 L MCV 90 MCH 30.0 MCHC 33.3 RDW 15.1 H Plt Count 124 L Seg Neutrophils % 58.4 Lymphocytes % 22.3 Monocytes % 8.7 Eosinophils % 9.6 H Basophils % 1.0 Absolute Neutrophils 2.8 Absolute Lymphocytes 1.1 Absolute Monocytes 0.4 Absolute Eosinophils 0.5 Absolute Basophils 0.0 Sodium 143.9 Potassium 3.8 Chloride 110 H Carbon Dioxide 26 Anion Gap 8 BUN 21 H Creatinine 1.56 H Est GFR ( Amer) 39 L Est GFR (Non-Af Amer) 32 L Glucose 78 Calcium 8.9 03/17/17 03/17/17 03/18/17 18:20 18:20 00:40 Creatine Kinase 55 52 CK-MB (CK-2) 0.62 Troponin I < 0.012 03/18/17 03/18/17 03/18/17 00:40 05:43 05:43 Creatine Kinase 48 CK-MB (CK-2) 0.71 0.74 Troponin I < 0.012 < 0.012 Assessment & Plan - Diagnosis (1) Frequent falls Is this a current diagnosis for this admission?: Yes (2) COPD (chronic obstructive pulmonary disease) Qualifiers: Emphysema type: unspecified Is this a current diagnosis for this admission?: Yes (3) Hyperlipidemia Qualifiers: Hyperlipidemia type: unspecified Qualified Code(s): E78.5 - Hyperlipidemia , unspecified Is this a current diagnosis for this admission?: Yes (4) Physical deconditioning Is this a current diagnosis for this admission?: Yes (5) Congestive heart failure Qualifiers: Congestive heart failure type: unspecified congestive heart failure type Is this a current diagnosis for this admission?: No (6) Acute on chronic renal failure Qualifiers: Acute renal failure type: unspecified Chronic kidney disease stage: unspecified stage Qualified Code(s): N17.9 - Acute kidney failure, unspecified ; N18.9 - Chronic kidney disease, unspecified; N18.9 - Chronic kidney disease, unspecified Is this a current diagnosis for this admission?: Yes - Notes Notes: Patient gives history of frequent falls. Exact etiology not clear. Agree with monitoring to rule out any cardiac dysrhythmia. Also would recommend strengthening exercises. Recommend orthostatic blood pressures. Continue slow hydration. COPD: Currently stable. Dyslipidemia: Continue antilipid therapy. Physical deconditioning: Patient will benefit from physical therapy. Acute on chronic renal failure: Continue slow hydration. Monitor renal functions. Congestive heart failure: Currently stable and compensated. No medication changes are performed. Patient should follow-up with her primary care nurse practitioner manager for management of chronic cardiac condition. Will be happy to take care of any acute cardiology problem while she is here. At this point would recommend cardiac monitoring, orthostatic blood pressure and general strengthening exercises, fall prevention advice etc. As regards candidacy for breast biopsy, this is a low risk procedure, patient cleared for such a procedure. - Time Time Spent: 30 to 50 Minutes - CODE STATUS was discussed, patient remains full code. Currently full code. Multiple medical problems were addressed. More than 50% of the time spent coordinating care, discussing management plans with involved caregivers. Management plans discussed with involved personnels. Medical decision making was of moderate to high complexity, patient's has multiple comorbidities. Medications reviewed and adjusted accordingly: Yes
[2017-03-24] MEDS: VERAPAMIL HCL 120 MG TABLET.SA PO SCH (12:00)
[2017-03-24] MEDS: DOCUSATE SODIUM 100 MG CAPSULE PO SCH ×2 (12:02→17:59)
[2017-03-24] MEDS: FLUTICASONE NASAL SPRAY 50 MCG/SPRY 120 SPRAY/16 GM NASL SCH ×2 (12:02→22:07)
[2017-03-24] MEDS: LAMOTRIGINE 100 MG TABLET PO SCH ×2 (12:03→22:08)
[2017-03-24] MEDS: METHIMAZOLE 5 MG TABLET PO SCH (12:03)
[2017-03-24] MEDS: MULTIVITAMINS W-IRON TABLET, CHEWABLE PO SCH (12:04)
[2017-03-24] MEDS: MONTELUKAST SODIUM 10 MG TABLET PO SCH (12:05)
[2017-03-24] MEDS: PAROXETINE HCL 20 MG TABLET PO SCH (12:05)
--- NOTE | 2017-03-24 14:57 | PDOC PROGRESS REPORT ---
Subjective Progress Note for:: 03/24/17 Subjective:: The patient is currently waiting on a bed for subacute rehabilitation. In short she is a 76-year-old female with an extensive past medical history. She presented to the emergency room after suffering several falls at home. Her past medical history is significant for extensive small cell lung cancer, oxygen dependent COPD, degenerative disc disease, diabetes mellitus, obstructive sleep apnea, hyperthyroidism, hyperlipidemia and tic douloureux. During this hospitalization she was found to have evidence of a breast mass and underwent a biopsy. She got good news this morning that her biopsy results were negative. Ultimately over the course of the hospitalization she has improved. She is able to ambulate but is quite weak and unsteady on her feet at times. The patient and her daughter have opted for subacute rehabilitation at discharge. It is my understanding she has a bed offer that will be available on Monday. Today when I saw her she was resting comfortably. She is in agreement with this plan. She states that overall she is much improved and has no complaints today. Physical Exam Vital Signs: Temp Pulse Resp BP Pulse Ox 98.0 F 81 16 99/59 L 96 03/24/17 12:00 03/24/17 13:42 03/24/17 13:42 03/24/17 12:00 03/24/17 12:00 Intake & Output 03/23/17 03/24/17 03/25/17 06:59 06:59 06:59 Intake Total 2420 1445 Balance 2420 1445 Weight 80.6 kg 77.7 kg General appearance: PRESENT: no acute distress, well-developed, well-nourished Head exam: PRESENT: atraumatic, normocephalic Eye exam: PRESENT: conjunctiva pink, EOMI, PERRLA. ABSENT: scleral icterus Mouth exam: PRESENT: moist, tongue midline Respiratory exam: PRESENT: clear to auscultation russell, rhonchi. ABSENT: rales, wheezes Cardiovascular exam: PRESENT: RRR. ABSENT: diastolic murmur, rubs, systolic murmur GI/Abdominal exam: PRESENT: normal bowel sounds, soft. ABSENT: distended, guarding, mass, organolmegaly, rebound, tenderness Rectal exam: PRESENT: deferred Extremities exam: PRESENT: full ROM. ABSENT: calf tenderness, clubbing, pedal edema Neurological exam: PRESENT: alert, awake, oriented to person, oriented to place , oriented to time, oriented to situation, CN II-XII grossly intact. ABSENT: motor sensory deficit Psychiatric exam: PRESENT: appropriate affect, normal mood. ABSENT: homicidal ideation, suicidal ideation Skin exam: PRESENT: dry, intact, warm. ABSENT: cyanosis, rash Results Laboratory Results: 03/23/17 05:23 03/23/17 05:23 03/17/17 03/17/17 03/18/17 18:20 18:20 00:40 Creatine Kinase 55 52 CK-MB (CK-2) 0.62 Troponin I < 0.012 03/18/17 03/18/17 03/18/17 00:40 05:43 05:43 Creatine Kinase 48 CK-MB (CK-2) 0.71 0.74 Troponin I < 0.012 < 0.012 Assessment & Plan - Diagnosis (1) Acute renal failure Qualifiers: Acute renal failure type: unspecified Qualified Code(s): N17.9 - Acute kidney failure, unspecified Is this a current diagnosis for this admission?: Yes Plan: Improving. Today her creatinine is 1.46 down from 3.39 at the time of admission. This may be her new baseline. We will check a chemistry panel tomorrow. (2) Lung cancer Qualifiers: Laterality: right Lung location: middle lobe of lung Qualified Code(s): C34.2 - Malignant neoplasm of middle lobe, bronchus or lung Is this a current diagnosis for this admission?: Yes Plan: The patient has non-small cell lung cancer. Currently in a clinical trial and not receiving treatment. This seems like a good time to pursue rehabilitation to get her strength back. She and the patient's daughter are in agreement with that. (3) Breast mass Is this a current diagnosis for this admission?: Yes Plan: Status post biopsy. Dr. Gracia is following. She received good news today that her biopsy results were negative. (4) Anemia Plan: Stable. This is an anemia of chronic disease related to her underlying malignancy. Her hemoglobin is stable (5) COPD (chronic obstructive pulmonary disease) Qualifiers: Emphysema type: unspecified Is this a current diagnosis for this admission?: Yes Plan: The patient has oxygen dependent COPD. No evidence of exacerbation. (6) Diabetes mellitus Qualifiers: Diabetes mellitus type: type 2 Diabetes mellitus complication status: with unspecified complications Diabetes mellitus terminal manager insulin use: without terminal manager use Qualified Code(s): E11.8 - Type 2 diabetes mellitus with unspecified complications Is this a current diagnosis for this admission?: Yes Plan: Continue current regimen. Her blood sugars are adequately controlled. (7) Hyperlipidemia Qualifiers: Hyperlipidemia type: unspecified Qualified Code(s): E78.5 - Hyperlipidemia , unspecified Is this a current diagnosis for this admission?: Yes Plan: Stable (8) TOÑA (obstructive sleep apnea) Is this a current diagnosis for this admission?: Yes Plan: Continue CPAP at night (9) Trigeminal neuralgia Is this a current diagnosis for this admission?: Yes Plan: Continue carbamazepine as prescribed at home. (10) Chronic respiratory failure Plan: She is at her baseline oxygen. She has chronic hypoxic respiratory failure secondary to her underlying COPD and lung malignancy. (11) Tobacco abuse Plan: Certainly would be in her best interest to quit smoking. (12) Congestive heart failure Qualifiers: Congestive heart failure type: unspecified congestive heart failure type Is this a current diagnosis for this admission?: No Plan: We are trying to get most recent outpatient echocardiogram. I suspect she has diastolic congestive heart failure. Currently she appears to be euvolemic. (13) Thrombocytopenia Plan: Likely related to underlying malignancy. Stable (14) Hypernatremia Plan: Resolved. This was likely due to dehydration. (15) Frequent falls Is this a current diagnosis for this admission?: Yes - Time Time Spent with patient: 15-24 minutes - Inpatient Certification Medical Necessity: Other - Inpatient hospitalization remains necessary for disposition. It is my understanding that the patient has a bed offer which she is accepted for this coming Monday.
[2017-03-24] MEDS: LIDOCAINE 5% (700 MG) TRANSDERMAL ADH..PATCH TP SCH (17:33)
[2017-03-24] MEDS: RISPERIDONE 1 MG TABLET PO SCH (22:07)
[2017-03-24] MEDS: LORATADINE 10 MG TABLET PO SCH (22:07)
[2017-03-25] MEDS: PHARMACY COMMUNICATION ORDER MC SCH ×2 (00:41→21:59)
[2017-03-25] MEDS: CARBAMAZEPINE 200 MG TABLET PO SCH ×3 (06:17→21:59)
[2017-03-25] MEDS: LANSOPRAZOLE 30 MG TAB.RAP.DR PO SCH (06:17)
[2017-03-25] MEDS: IPRATROPIUM/ALBUTEROL 0.5-2.5 MG/3 ML AMPUL NEB SCH ×3 (08:05→20:02)
[2017-03-25] MEDS: DOCUSATE SODIUM 100 MG CAPSULE PO SCH ×2 (09:23→17:17)
[2017-03-25] MEDS: FLUTICASONE NASAL SPRAY 50 MCG/SPRY 120 SPRAY/16 GM NASL SCH ×2 (09:23→21:59)
[2017-03-25] MEDS: LAMOTRIGINE 100 MG TABLET PO SCH ×2 (09:23→21:59)
[2017-03-25] MEDS: PAROXETINE HCL 20 MG TABLET PO SCH (09:24)
[2017-03-25] MEDS: LIDOCAINE 5% (700 MG) TRANSDERMAL ADH..PATCH TP SCH (09:24)
[2017-03-25] MEDS: MULTIVITAMINS W-IRON TABLET, CHEWABLE PO SCH (09:24)
[2017-03-25] MEDS: METHIMAZOLE 5 MG TABLET PO SCH (09:24)
[2017-03-25] MEDS: MONTELUKAST SODIUM 10 MG TABLET PO SCH (09:24)
[2017-03-25] MEDS: VERAPAMIL HCL 120 MG TABLET.SA PO SCH (09:25)
--- NOTE | 2017-03-25 10:35 | PDOC PROGRESS REPORT ---
Subjective Progress Note for:: 03/25/17 Subjective:: No acute events overnight, today had long discussion about next steps of care, 45 min Physical Exam Vital Signs: Temp Pulse Resp BP Pulse Ox 98.1 F 78 16 123/50 L 96 03/25/17 08:47 03/25/17 08:47 03/25/17 08:47 03/25/17 08:47 03/25/17 08:47 Intake & Output 03/24/17 03/25/17 03/26/17 06:59 06:59 06:59 Intake Total 1445 1448 Output Total 2 Balance 1445 1446 Weight 77.7 kg 81.4 kg General appearance: PRESENT: no acute distress, well-developed, well-nourished Head exam: PRESENT: atraumatic, normocephalic Eye exam: PRESENT: conjunctiva pink, EOMI, PERRLA. ABSENT: scleral icterus Ear exam: PRESENT: normal external ear exam Mouth exam: PRESENT: moist, tongue midline Neck exam: ABSENT: carotid bruit, JVD, lymphadenopathy, thyromegaly Respiratory exam: PRESENT: clear to auscultation russell. ABSENT: rales, rhonchi, wheezes Cardiovascular exam: PRESENT: RRR. ABSENT: diastolic murmur, rubs, systolic murmur Pulses: PRESENT: normal dorsalis pedis pul Vascular exam: PRESENT: normal capillary refill GI/Abdominal exam: PRESENT: normal bowel sounds, soft. ABSENT: distended, guarding, mass, organolmegaly, rebound, tenderness Rectal exam: PRESENT: deferred Extremities exam: PRESENT: full ROM. ABSENT: calf tenderness, clubbing, pedal edema Neurological exam: PRESENT: alert, awake, oriented to person, oriented to place , oriented to time, oriented to situation, CN II-XII grossly intact. ABSENT: motor sensory deficit Psychiatric exam: PRESENT: appropriate affect, normal mood. ABSENT: homicidal ideation, suicidal ideation Skin exam: PRESENT: dry, intact, warm. ABSENT: cyanosis, rash Results Laboratory Results: 03/23/17 05:23 03/23/17 05:23 03/17/17 03/17/17 03/18/17 18:20 18:20 00:40 Creatine Kinase 55 52 CK-MB (CK-2) 0.62 Troponin I < 0.012 03/18/17 03/18/1717 00:40 05:43 05:43 Creatine Kinase 48 CK-MB (CK-2) 0.71 0.74 Troponin I < 0.012 < 0.012 Assessment & Plan - Diagnosis (1) Breast mass Is this a current diagnosis for this admission?: Yes Plan: No further w/u (2) Lung cancer Qualifiers: Laterality: right Lung location: middle lobe of lung Qualified Code(s): C34.2 - Malignant neoplasm of middle lobe, bronchus or lung Is this a current diagnosis for this admission?: Yes Plan: no further rx for now (3) Physical deconditioning Is this a current diagnosis for this admission?: Yes Plan: rehab placement pending - Time Time Spent with patient: 35 or more minutes Critical Time spent with patient: 35 or more minutes Disposition: will sign off
--- NOTE | 2017-03-25 11:08 | PROGRESS NOTE E ---
Progress Note NAME: TAINA MONTEJO : 1940 AGE: 76Y DATE: 03/25/2017 ROOM: 538 SUBJECTIVE: The patient is a 76-year-old female who has an extensive past medical history of anemia, lung cancer, acute renal failure in the past, COPD, diabetes, congestive heart failure. She came to the emergency room because of a fall at home. She is doing better now. Continuing her rehabilitation, waiting for placement for rehab. OBJECTIVE: GENERAL: Patient lying in bed comfortable, not in distress. VITAL SIGNS: Blood pressure 123/50, heart rate is 78, temperature 98.1, respiratory rate 16, saturation 96% on 4 liters. HEENT: Head normocephalic, atraumatic. Pupils round, reactive to light and accommodation bilaterally. Extraocular movements intact. Ears: Tympanic membranes intact bilaterally. No discharge from the ears. No discharge from the nose. NECK: Supple. No increased JVD. No thyromegaly. No lymphadenopathy. CARDIOVASCULAR: Normal S1, S2. Regular rate and rhythm. No murmur. No gallop. RESPIRATORY: Lungs. ABDOMEN: Soft. MUSCULOSKELETAL: No edema. NEUROLOGIC: Awake, alert. SKIN: No rash. LABORATORY: White blood count is 5.1, hemoglobin 8.4. Sodium 144, potassium 3.4, creatinine 1.4. ASSESSMENT: 1. Fall. 2. Acute renal failure, resolved. 3. Lung cancer, stable. 4. Breast mass. 5. Anemia of chronic disease. 6. Chronic obstructive pulmonary disease. 7. Diabetes. 8. Chronic congestive heart failure, stable. 9. Tobacco abuse. PLAN: Continue current management. Patient waiting for placement and medical necessity. DICTATING PHYSICIAN: ASHWINI MABRY M.D. [id number] PHY#: [id number] ID: [id number] JOB#: [id number] ACCT: [id number] cc: > MTDD
[2017-03-25] MEDS: RISPERIDONE 1 MG TABLET PO SCH (21:59)
[2017-03-25] MEDS: LORATADINE 10 MG TABLET PO SCH (21:59)
[2017-03-26 05:30] LABS: HEMATOCRIT 22.6 % (36.0-47.0); HGB HCT DIFFERENCE 0.8; MEAN CORPUSCULAR HEMOGLOBIN 31.4 pg (27.0-33.4); MEAN CORPUSCULAR HGB CONC 34.2 g/dL (32.0-36.0); MEAN CORPUSCULAR VOLUME 92 fl (80-97); RED BLOOD COUNT 2.47 10^6/uL (3.72-5.28); RED CELL DISTRIBUTION WIDTH 15.2 % (11.5-14.0); WHITE BLOOD COUNT 5.6 10^3/uL (4.0-10.5)
[2017-03-26 05:34] LABS: HEMOGLOBIN 7.8 g/dL (12.0-15.5)
[2017-03-26 05:40] LABS: ALBUMIN 3.4 g/dL (3.5-5.0); ANION GAP 10 (5-19); BLOOD UREA NITROGEN 26 mg/dL (7-20); CALCIUM 8.8 mg/dL (8.4-10.2); CARBON DIOXIDE 25 mmol/L (22-30); CHLORIDE 107 mmol/L (98-107); CREATININE RESULT 1.59 mg/dL (0.52-1.25); GLUCOSE 84 mg/dL (75-110); PHOSPHORUS 4.7 mg/dL (2.5-4.5); SODIUM 142.3 mmol/L (137-145)
[2017-03-26] MEDS: LANSOPRAZOLE 30 MG TAB.RAP.DR PO SCH (06:25)
[2017-03-26] MEDS: CARBAMAZEPINE 200 MG TABLET PO SCH ×3 (06:25→22:11)
[2017-03-26] MEDS: IPRATROPIUM/ALBUTEROL 0.5-2.5 MG/3 ML AMPUL NEB SCH ×3 (08:26→19:53)
[2017-03-26] MEDS: PAROXETINE HCL 20 MG TABLET PO SCH (09:17)
[2017-03-26] MEDS: MONTELUKAST SODIUM 10 MG TABLET PO SCH (09:17)
[2017-03-26] MEDS: DOCUSATE SODIUM 100 MG CAPSULE PO SCH ×2 (09:17→17:17)
[2017-03-26] MEDS: LAMOTRIGINE 100 MG TABLET PO SCH ×2 (09:17→22:11)
[2017-03-26] MEDS: VERAPAMIL HCL 120 MG TABLET.SA PO SCH (09:17)
[2017-03-26] MEDS: MULTIVITAMINS W-IRON TABLET, CHEWABLE PO SCH (09:17)
[2017-03-26] MEDS: METHIMAZOLE 5 MG TABLET PO SCH (09:17)
[2017-03-26] MEDS: FLUTICASONE NASAL SPRAY 50 MCG/SPRY 120 SPRAY/16 GM NASL SCH ×2 (09:17→22:11)
[2017-03-26] MEDS: LIDOCAINE 5% (700 MG) TRANSDERMAL ADH..PATCH TP SCH (09:17)
--- NOTE | 2017-03-26 12:03 | PROGRESS NOTE E ---
Progress Note NAME: TAINA MONTEJO : 1940 AGE: 76Y DATE: 03/26/2017 ROOM: 538 SUBJECTIVE: The patient is a 76-year-old female who has a past medical history of anemia, lung cancer, acute renal failure in the past, COPD, diabetes, congestive heart failure. She was admitted because of frequent falls, doing better, and she continued rehabilitation and waiting for rehab placement. She is followed up by Dr. Gracia for a breast mass and lung cancer. OBJECTIVE: GENERAL: The patient is lying in bed, comfortable, not in distress. VITAL SIGNS: Temperature 98.8, heart rate 82, blood pressure is 102/58, respiratory rate 16, saturation is 91% on 2 L. HEENT: Normocephalic, atraumatic. Pupils are round and reactive to light and accommodation bilaterally. Extraocular movements intact. Ears: Tympanic membranes intact bilaterally. No discharge from the ears. No discharge from the nose. NECK: Supple. No increased JVD. No thyromegaly. No lymphadenopathy. CARDIOVASCULAR: Normal S1 and S2. Regular rate and rhythm. No murmur. No gallop. RESPIRATORY: Lungs clear. ABDOMEN: Soft. MUSCULOSKELETAL: No edema. NEUROLOGIC: Awake, alert. SKIN: No rash. DIAGNOSTIC DATA: Labs: White blood count is 5.6, hemoglobin 7.8. Sodium 142, creatinine is 1.6, potassium 5. ASSESSMENT: 1. FALL. 2. ACUTE RENAL FAILURE, RESOLVED. 3. LUNG CANCER, STABLE. 4. BREAST MASS. 5. ANEMIA OF CHRONIC DISEASE. 6. CHRONIC OBSTRUCTIVE PULMONARY DISEASE. 7. DIABETES. 8. CONGESTIVE HEART FAILURE. 9. TOBACCO ABUSE. PLAN: Continue current treatment and continue physical therapy. Waiting for placement. MEDICAL NECESSITY: Patient waiting for placement. DICTATING PHYSICIAN: ASHWINI MABRY M.D. [id number] PHY#: [id number] ID: [id number] JOB#: [id number] ACCT: [id number] cc: >
[2017-03-26] MEDS: RISPERIDONE 1 MG TABLET PO SCH (22:11)
[2017-03-26] MEDS: LORATADINE 10 MG TABLET PO SCH (22:11)
[2017-03-26] MEDS: PHARMACY COMMUNICATION ORDER MC SCH (22:15)
[2017-03-27 05:26] LABS: ABSOLUTE EOSINOPHILS # (AUTO) 0.4 10^3/uL (0.0-0.6); ABSOLUTE LYMPHOCYTES (AUTO) 1.2 10^3/uL (0.5-4.7); ABSOLUTE MONOCYTES (AUTO) 0.5 10^3/uL (0.1-1.4); BASOPHILS % (AUTO) 0.5 % (0-2); HEMATOCRIT 21.2 % (36.0-47.0); HGB HCT DIFFERENCE 0.4; LYMPHOCYTES % (AUTO) 23.5 % (13-45); MEAN CORPUSCULAR HEMOGLOBIN 31.1 pg (27.0-33.4); MEAN CORPUSCULAR HGB CONC 33.9 g/dL (32.0-36.0); MEAN CORPUSCULAR VOLUME 92 fl (80-97); RED BLOOD COUNT 2.31 10^6/uL (3.72-5.28); RED CELL DISTRIBUTION WIDTH 15.7 % (11.5-14.0); WHITE BLOOD COUNT 5.2 10^3/uL (4.0-10.5)
[2017-03-27 05:28] LABS: HEMOGLOBIN 7.2 g/dL (12.0-15.5)
[2017-03-27 05:37] LABS: ALBUMIN 3.1 g/dL (3.5-5.0); ANION GAP 10 (5-19); BLOOD UREA NITROGEN 32 mg/dL (7-20); CALCIUM 8.6 mg/dL (8.4-10.2); CARBON DIOXIDE 26 mmol/L (22-30); CHLORIDE 107 mmol/L (98-107); CREATININE RESULT 1.75 mg/dL (0.52-1.25); GLUCOSE 84 mg/dL (75-110); PHOSPHORUS 4.9 mg/dL (2.5-4.5); SODIUM 142.6 mmol/L (137-145)
[2017-03-27] MEDS: CARBAMAZEPINE 200 MG TABLET PO SCH ×3 (06:12→22:54)
[2017-03-27] MEDS: LANSOPRAZOLE 30 MG TAB.RAP.DR PO SCH (06:12)
[2017-03-27] MEDS: IPRATROPIUM/ALBUTEROL 0.5-2.5 MG/3 ML AMPUL NEB SCH ×3 (07:59→19:47)
[2017-03-27] MEDS: DOCUSATE SODIUM 100 MG CAPSULE PO SCH ×2 (10:00→18:22)
[2017-03-27] MEDS: PAROXETINE HCL 20 MG TABLET PO SCH (10:00)
[2017-03-27] MEDS: MONTELUKAST SODIUM 10 MG TABLET PO SCH (10:00)
[2017-03-27] MEDS: FLUTICASONE NASAL SPRAY 50 MCG/SPRY 120 SPRAY/16 GM NASL SCH ×2 (10:01→22:54)
[2017-03-27] MEDS: METHIMAZOLE 5 MG TABLET PO SCH (10:02)
[2017-03-27] MEDS: MULTIVITAMINS W-IRON TABLET, CHEWABLE PO SCH (10:04)
[2017-03-27] MEDS: LAMOTRIGINE 100 MG TABLET PO SCH ×2 (10:05→22:54)
[2017-03-27] MEDS: LIDOCAINE 5% (700 MG) TRANSDERMAL ADH..PATCH TP SCH (10:06)
[2017-03-27] MEDS: VERAPAMIL HCL 120 MG TABLET.SA PO SCH (10:06)
--- NOTE | 2017-03-27 16:50 | PDOC DISCHARGE SUMMARY ---
General - Admit/Disc Date/PCP Admission Date/Primary Care Provider: 03/17/17 17:42 ELISE GARCIA DO Oncologist: Dr Gracia Discharge Date: 03/27/17 - Discharge Diagnosis (1) Acute renal failure Is this a current diagnosis for this admission?: Yes Summary: Likely secondary to dehydration. Her creatinine is much improved since the time of admission. Currently is 1.75 down from 3.3 at the time of admission. This may be her new baseline. (2) Lung cancer Is this a current diagnosis for this admission?: Yes Summary: She has been involved in a clinical trial at a tertiary center. Currently not receiving any chemotherapy. (3) Breast mass Is this a current diagnosis for this admission?: Yes Summary: She had biopsy performed by general surgery which was negative for underlying malignancy. She was followed by oncology during this hospitalization. (4) Anemia Summary: Related to her underlying malignancy. Her hemoglobin has drifted down somewhat due to hemodilution and multiple blood draws. (5) COPD (chronic obstructive pulmonary disease) Is this a current diagnosis for this admission?: Yes Summary: Her lungs sound clear. No evidence of exacerbation. (6) Diabetes mellitus Is this a current diagnosis for this admission?: Yes Summary: Stable (7) Hyperlipidemia Is this a current diagnosis for this admission?: Yes Summary: Stable (8) TOÑA (obstructive sleep apnea) Is this a current diagnosis for this admission?: Yes Summary: Continue CPAP at night (9) Trigeminal neuralgia Is this a current diagnosis for this admission?: Yes Summary: Continue home regimen with carbamazepine (10) Chronic respiratory failure Summary: She is at her baseline at this point. (11) Tobacco abuse Summary: Certainly would be in her best interest to quit smoking. (12) Congestive heart failure Is this a current diagnosis for this admission?: No Summary: We do not have her outpatient echocardiogram available. I suspect she has diastolic congestive heart failure due to her long-standing diabetes mellitus. (13) Thrombocytopenia Summary: This is quite mild and likely related to her undergoing treatment for her lung cancer. (14) Hypernatremia Summary: Acute hypernatremia likely secondary to intravascular volume depletion. Resolved (15) Frequent falls Is this a current diagnosis for this admission?: Yes Summary: The patient and her family have decided to pursue subacute rehabilitation at the time of discharge. - Additional Information Resuscitation Status: Full Code Discharge Diet: Regular Discharge Activity: Activity As Tolerated, Balance Activity w/Rest, Slowly Increase Activity, Supervised Activity Home Medications: Lansoprazole [Prevacid 30 mg Odt Tablet] 30 mg PO ACSUPPER 03/17/17 Metformin HCl [Metformin HCl ER] 500 mg PO BIDACBS 03/17/17 Methimazole [Tapazole] 10 mg PO DAILY 03/17/17 Montelukast Sodium [Singulair 10 mg Tablet] 10 mg PO DAILY 03/17/17 Verapamil HCl [Verapamil ER] 120 mg PO DAILY 03/17/17 Acetaminophen [Tylenol 325 mg Tablet] 650 mg PO Q4HP PRN tablet 03/27/17 Carbamazepine [Tegretol 200 mg Tablet] 200 mg PO Q8 tablet 03/27/17 Docusate Sodium [Colace 100 mg Capsule] 100 mg PO BID capsule 03/27/17 Fluticasone Propionate [Flonase Nasal Berkey 50 Mcg/Berkey 16 gm] 2 spray NASL Q12 spray.pump 03/27/17 Ipratropium/Albuterol Sulfate [Duoneb 3 ml Ampul] 3 ml NEB [id number] vial.neb Lactulose [Cephulac Syrup 20 gm/30 ml Udcup] 20 gm PO DAILYP PRN udc 03/27/17 Lamotrigine [Lamictal 100 mg Tablet] 50 mg PO Q12 tablet 03/27/17 Lidocaine [Lidoderm 5% (700 mg) Transdermal Patch] 2 patch TP DAILY adh..patch 03/27/17 Loratadine [Claritin 10 mg Tablet] 10 mg PO QHS tablet 03/27/17 Multivitamins W-Iron [Flintstones Chewable Multivit W/Fe Tab] 2 tab PO DAILY tab.chew 03/27/17 Nicotine [Nicoderm 14 mg/24 Hr Transdermal Patch] 1 each TD DAILYP PRN patch.td24 03/27/17 Paroxetine HCl [Paxil 20 mg Tablet] 20 mg PO DAILY tablet 03/27/17 Risperidone [Risperdal 1 mg Tablet] 1 mg PO QHS #30 tablet 03/27/17 History of Present Illness History of Present Illness: TAINA MONTEJO is a 76 year old female who presented to the emergency room after having a fall at home. Hospital Course Hospital Course: Please see complete medical record for details. This is a complicated in short the patient is a 76-year-old female with extensive past medical history. She presented to the emergency room after suffering several falls at home. Her past medical history significant for extensive small cell lung cancer , oxygen dependent COPD, degenerative disc disease, diabetes mellitus, obstructive sleep apnea, hyperthyroidism, hyperlipidemia and tic douloure[place]. At the time of admission the patient was found to have acute renal failure with a creatinine of 3.3. She was admitted to the hospital and hydrated with IV fluids. Her renal function improved but has not returned to baseline. During this hospitalization she was found to have evidence of a breast mass and underwent a biopsy. Biopsy results were ultimately negative. The patient was seen by physical therapy and has been able to ambulate somewhat but is quite unsteady on her feet at times. The patient and the family have opted for subacute rehabilitation at the time of discharge. She will be transitioned to a facility tomorrow morning if she remains stable overnight. Physical Exam Vital Signs: Temp Pulse Resp BP Pulse Ox 98.1 F 71 18 119/53 L 92 03/27/17 16:00 03/27/17 16:00 03/27/17 16:00 03/27/17 16:00 03/27/17 16:00 Intake & Output 03/26/17 03/27/17 03/28/17 06:59 06:59 06:59 Intake Total 1850 1585 Balance 1850 1585 Weight 81.4 kg 81.3 kg General appearance: PRESENT: no acute distress, well-developed, well-nourished Head exam: PRESENT: atraumatic, normocephalic Mouth exam: PRESENT: moist, tongue midline Respiratory exam: PRESENT: clear to auscultation russell. ABSENT: rales, rhonchi, wheezes Cardiovascular exam: PRESENT: RRR. ABSENT: diastolic murmur, rubs, systolic murmur GI/Abdominal exam: PRESENT: normal bowel sounds, soft. ABSENT: distended, guarding, mass, organolmegaly, rebound, tenderness Rectal exam: PRESENT: deferred Extremities exam: PRESENT: full ROM. ABSENT: calf tenderness, clubbing, pedal edema Neurological exam: PRESENT: alert, awake, oriented to person, oriented to place , oriented to time, oriented to situation, CN II-XII grossly intact. ABSENT: motor sensory deficit Psychiatric exam: PRESENT: appropriate affect, normal mood. ABSENT: homicidal ideation, suicidal ideation Skin exam: PRESENT: dry, intact, warm. ABSENT: cyanosis, rash Results Laboratory Results: 03/27/17 04:53 03/27/17 04:53 03/27/17 03/27/17 04:53 04:53 WBC 5.2 RBC 2.31 L Hgb 7.2 L Hct 21.2 L MCV 92 MCH 31.1 MCHC 33.9 RDW 15.7 H Plt Count 141 L Seg Neutrophils % 58.0 Lymphocytes % 23.5 Monocytes % 10.0 Eosinophils % 8.0 H Basophils % 0.5 Absolute Neutrophils 3.0 Absolute Lymphocytes 1.2 Absolute Monocytes 0.5 Absolute Eosinophils 0.4 Absolute Basophils 0.0 Sodium 142.6 Potassium 5.0 Chloride 107 Carbon Dioxide 26 Anion Gap 10 BUN 32 H Creatinine 1.75 H Est GFR ( Amer) 34 L Est GFR (Non-Af Amer) 28 L Glucose 84 Calcium 8.6 Phosphorus 4.9 H Albumin 3.1 L 03/17/17 03/17/17 03/18/17 18:20 18:20 00:40 Creatine Kinase 55 52 CK-MB (CK-2) 0.62 Troponin I < 0.012 03/18/17 03/18/17 03/18/17 00:40 05:43 05:43 Creatine Kinase 48 CK-MB (CK-2) 0.71 0.74 Troponin I < 0.012 < 0.012 Qualifiers PATEINT BEING DISCHARGED WITH ANY OF THE FOLLOWING DIAGNOSIS?: No Plan Time Spent: Greater than 30 Minutes
--- NOTE | 2017-03-27 16:54 | PDOC PROGRESS REPORT ---
Subjective Progress Note for:: 03/27/17 Subjective:: The patient is doing well today. She has a bed available tomorrow for subacute rehabilitation and she is quite excited. She has no complaints today. Physical Exam Vital Signs: Temp Pulse Resp BP Pulse Ox 98.1 F 71 18 119/53 L 92 03/27/17 16:00 03/27/17 16:00 03/27/17 16:00 03/27/17 16:00 03/27/17 16:00 Intake & Output 03/26/17 03/27/17 03/28/17 06:59 06:59 06:59 Intake Total 1850 1585 Balance 1850 1585 Weight 81.4 kg 81.3 kg General appearance: PRESENT: no acute distress, well-developed, well-nourished Head exam: PRESENT: atraumatic, normocephalic Mouth exam: PRESENT: moist, tongue midline Respiratory exam: PRESENT: clear to auscultation russell. ABSENT: rales, rhonchi, wheezes Cardiovascular exam: PRESENT: RRR. ABSENT: diastolic murmur, rubs, systolic murmur GI/Abdominal exam: PRESENT: normal bowel sounds, soft. ABSENT: distended, guarding, mass, organolmegaly, rebound, tenderness Neurological exam: PRESENT: alert, awake, oriented to person, oriented to place , oriented to time, oriented to situation, CN II-XII grossly intact. ABSENT: motor sensory deficit Psychiatric exam: PRESENT: appropriate affect, normal mood. ABSENT: homicidal ideation, suicidal ideation Skin exam: PRESENT: dry, intact, warm. ABSENT: cyanosis, rash Results Laboratory Results: 03/27/17 04:53 03/27/17 04:53 03/27/17 03/27/17 04:53 04:53 WBC 5.2 RBC 2.31 L Hgb 7.2 L Hct 21.2 L MCV 92 MCH 31.1 MCHC 33.9 RDW 15.7 H Plt Count 141 L Seg Neutrophils % 58.0 Lymphocytes % 23.5 Monocytes % 10.0 Eosinophils % 8.0 H Basophils % 0.5 Absolute Neutrophils 3.0 Absolute Lymphocytes 1.2 Absolute Monocytes 0.5 Absolute Eosinophils 0.4 Absolute Basophils 0.0 Sodium 142.6 Potassium 5.0 Chloride 107 Carbon Dioxide 26 Anion Gap 10 BUN 32 H Creatinine 1.75 H Est GFR ( Amer) 34 L Est GFR (Non-Af Amer) 28 L Glucose 84 Calcium 8.6 Phosphorus 4.9 H Albumin 3.1 L 03/17/17 03/17/17 03/18/17 18:20 18:20 00:40 Creatine Kinase 55 52 CK-MB (CK-2) 0.62 Troponin I < 0.012 03/18/17 03/18/17 03/18/17 00:40 05:43 05:43 Creatine Kinase 48 CK-MB (CK-2) 0.71 0.74 Troponin I < 0.012 < 0.012 Assessment & Plan - Diagnosis (1) Acute renal failure Qualifiers: Acute renal failure type: unspecified Qualified Code(s): N17.9 - Acute kidney failure, unspecified Is this a current diagnosis for this admission?: Yes Plan: Improving. Today her creatinine is 1.75 down from 3.39 at the time of admission. This may be her new baseline. We will check a chemistry panel tomorrow. (2) Lung cancer Qualifiers: Laterality: right Lung location: middle lobe of lung Qualified Code(s): C34.2 - Malignant neoplasm of middle lobe, bronchus or lung Is this a current diagnosis for this admission?: Yes Plan: The patient has non-small cell lung cancer. Currently in a clinical trial and not receiving treatment. This seems like a good time to pursue rehabilitation to get her strength back. She has a bed offer available tomorrow. (3) Breast mass Is this a current diagnosis for this admission?: Yes Plan: Status post biopsy. Dr. Gracia is following. She received good news that her biopsy results were negative. (4) Anemia Plan: Stable. This is an anemia of chronic disease related to her underlying malignancy. Her hemoglobin is stable (5) COPD (chronic obstructive pulmonary disease) Qualifiers: Emphysema type: unspecified Is this a current diagnosis for this admission?: Yes Plan: The patient has oxygen dependent COPD. No evidence of exacerbation. (6) Diabetes mellitus Qualifiers: Diabetes mellitus type: type 2 Diabetes mellitus complication status: with unspecified complications Diabetes mellitus mcfp insulin use: without mcfp use Qualified Code(s): E11.8 - Type 2 diabetes mellitus with unspecified complications Is this a current diagnosis for this admission?: Yes Plan: Continue current regimen. Her blood sugars are adequately controlled. (7) Hyperlipidemia Qualifiers: Hyperlipidemia type: unspecified Qualified Code(s): E78.5 - Hyperlipidemia , unspecified Is this a current diagnosis for this admission?: Yes Plan: Stable (8) TOÑA (obstructive sleep apnea) Is this a current diagnosis for this admission?: Yes Plan: Continue CPAP at night (9) Trigeminal neuralgia Is this a current diagnosis for this admission?: Yes Plan: Continue carbamazepine as prescribed at home. (10) Chronic respiratory failure Plan: She is at her baseline oxygen. She has chronic hypoxic respiratory failure secondary to her underlying COPD and lung malignancy. (11) Tobacco abuse Plan: Certainly would be in her best interest to quit smoking. (12) Congestive heart failure Qualifiers: Congestive heart failure type: unspecified congestive heart failure type Is this a current diagnosis for this admission?: No Plan: We do not have outpatient echocardiogram results available. I suspect she has diastolic congestive heart failure. Currently she appears to be euvolemic. (13) Thrombocytopenia Plan: Likely related to underlying malignancy. Stable (14) Hypernatremia Plan: Resolved. This was likely due to dehydration. (15) Frequent falls Is this a current diagnosis for this admission?: Yes Plan: She has a bed available for subacute rehabilitation tomorrow. - Time Time Spent with patient: 25-34 minutes - Inpatient Certification Medical Necessity: Other - Inpatient hospitalization remains necessary for disposition. The patient has a bed available tomorrow for subacute rehabilitation.
[2017-03-27] MEDS: RISPERIDONE 1 MG TABLET PO SCH (22:54)
[2017-03-27] MEDS: LORATADINE 10 MG TABLET PO SCH (22:54)
[2017-03-27] MEDS: PHARMACY COMMUNICATION ORDER MC SCH (22:55)
[2017-03-28] MEDS: CARBAMAZEPINE 200 MG TABLET PO SCH (06:01)
[2017-03-28] MEDS: LANSOPRAZOLE 30 MG TAB.RAP.DR PO SCH (06:01)
[2017-03-28] MEDS: IPRATROPIUM/ALBUTEROL 0.5-2.5 MG/3 ML AMPUL NEB SCH (07:48)
[2017-03-28] MEDS: FLUTICASONE NASAL SPRAY 50 MCG/SPRY 120 SPRAY/16 GM NASL SCH (09:05)
[2017-03-28] MEDS: LAMOTRIGINE 100 MG TABLET PO SCH (09:06)
[2017-03-28] MEDS: MULTIVITAMINS W-IRON TABLET, CHEWABLE PO SCH (09:06)
[2017-03-28] MEDS: METHIMAZOLE 5 MG TABLET PO SCH (09:07)
[2017-03-28] MEDS: PAROXETINE HCL 20 MG TABLET PO SCH (09:07)
[2017-03-28] MEDS: MONTELUKAST SODIUM 10 MG TABLET PO SCH (09:07)
[2017-03-28] MEDS: DOCUSATE SODIUM 100 MG CAPSULE PO SCH (09:07)
[2017-03-28] MEDS: LIDOCAINE 5% (700 MG) TRANSDERMAL ADH..PATCH TP SCH (09:13)
[2017-03-28] MEDS ORDERED: VERAPAMIL HCL 120 MG TABLET.SA PO SCH (10:00)
[2017-03-28 12:35] VITALS: BP 116/58
--- NOTE | 2017-03-28 13:14 | Progress Note ---
Provider Note Provider Note: Date of admission: 03/17/2017 Date of discharge: 03/28/2017 This is an addendum to the previously dictated discharge summary from yesterday 03/28/2017. Subjective: Currently the patient has no complaints she is ready to be discharged to her nursing facility. She denies any chest pain shortness of breath. She is however freezing in her room because the air is up way too high. Physical exam: Current temperature is 98.0. Blood pressure is 116/58. Pulse is 72. Respiratory rate 17. O2 sat is 100% on room air. General: This is a well-developed well-nourished appearing white female resting in bed currently in no acute distress. Heart: Regular, rate, and rhythm no murmurs rubs or gallops. Lungs: Diminished at the bases otherwise clear. The patient is currently on nasal cannula at the bedside. Abdomen: Soft, nontender, nondistended. Extremities: No clubbing, cyanosis, or edema. Neuro: Awake, alert and oriented. Cranial nerves are grossly intact. Laboratory data: No new labs for today. Assessment and plan: Please see discharge assessment and plan from the patient's discharge summary written yesterday. At this time there are no changes. The patient is stable and fit for discharge back to the nursing facility.
== END 2017-03-28 13:45 | DRG 683 ==
LOC: ER 12:48 → UNDOADMIN 17:21 → EH 17:21 → 5 19:00
PROVIDERS: ADMIT Family Medicine; ATTEND Family Medicine
PROC: 0HBU3ZX Excision of Left Breast, Percutaneous Approach, Diagnostic (ICD-10-PCS; principal; 2017-03-17)
DX: N17.9 Acute kidney failure, unspecified (principal); J96.11 Chronic respiratory failure with hypoxia; I13.0 Hypertensive heart and chronic kidney disease with heart failure and stage 1 through stage 4 chronic kidney disease, or unspecified chronic kidney disease; E87.0 Hyperosmolality and hypernatremia; E11.22 Type 2 diabetes mellitus with diabetic chronic kidney disease; N18.9 Chronic kidney disease, unspecified; I50.9 Heart failure, unspecified; E86.0 Dehydration; J44.9 Chronic obstructive pulmonary disease, unspecified; E78.5 Hyperlipidemia, unspecified; D50.9 Iron deficiency anemia, unspecified; D69.6 Thrombocytopenia, unspecified; D63.0 Anemia in neoplastic disease; E05.90 Thyrotoxicosis, unspecified without thyrotoxic crisis or storm; G50.0 Trigeminal neuralgia; G47.33 Obstructive sleep apnea (adult) (pediatric); N63.24 Unspecified lump in the left breast, lower inner quadrant; M19.90 Unspecified osteoarthritis, unspecified site; S30.0XXA Contusion of lower back and pelvis, initial encounter; W19.XXXA Unspecified fall, initial encounter; Y93.9 Activity, unspecified; Y92.009 Unspecified place in unspecified non-institutional (private) residence as the place of occurrence of the external cause; F03.90 Unspecified dementia, unspecified severity, without behavioral disturbance, psychotic disturbance, mood disturbance, and anxiety; F17.210 Nicotine dependence, cigarettes, uncomplicated; Z60.2 Problems related to living alone; Z85.118 Personal history of other malignant neoplasm of bronchus and lung; Z88.0 Allergy status to penicillin; Z88.2 Allergy status to sulfonamides; Z88.8 Allergy status to other drugs, medicaments and biological substances; Z99.81 Dependence on supplemental oxygen; Z79.84 Long term (current) use of oral hypoglycemic drugs; Z79.899 Other long term (current) drug therapy; Z75.1 Person awaiting admission to adequate facility elsewhere
CPT/HCPCS: 36415; 51701; 72110; 76642; 80048; 80053; 80069; 80076; 80156; 80307; 81001; 82550; 82553; 82962; 83036; 83735; 84439; 84443; 84481; 84484; 85025; 85027; 87040; 87086; 88305; 89190; 93005; 93010; 94640; 94660; 96360; 99285; G0206-52; G8978-GP; G8979-GP; G8996-GN; G8997-GN; G8998-GN; J1644; J3490; J7030; J7620

== ENCOUNTER 2017-04-20 14:28 | Observation (INO) | payer MEDICARE, MEDICAID ==
--- NOTE | 2017-04-20 15:03 | ER Document Report ---
ED Medical Screen (RME) - General Chief Complaint: Abnormal Lab Results Stated Complaint: ABNORMAL LABS Time Seen by Provider: 04/20/17 14:54 Notes: 76-year-old female patient admitted here on 03/27/2017 with dehydration, acute renal failure, anemia. She was discharged a few days later to a rehab facility in [place]. She was discharged to home from rehab on 04/12/2017 getting home physical therapy. On Monday she fell on her porch and was found by the physical therapist lying on the porch with the walker turned over. She was taken to her primary care on that day and had some lab work done. They received a call today stating that the lab work was abnormal and she was anemic and needed to come to the emergency room. Request was sent for that lab work to be faxed over here for comparison to what we get today. I have greeted and performed a rapid initial assessment of this patient. A comprehensive ED assessment and evaluation of the patient, analysis of test results and completion of the medical decision making process will be conducted by additional ED providers. TRAVEL OUTSIDE OF THE [place] IN LAST 30 DAYS: No - Related Data Allergies/Adverse Reactions: oxcarbazepine [From Trileptal] Allergy (Mild, Verified 04/20/17 14:47) rash Penicillins Allergy (Mild, Verified 04/20/17 14:47) rash Sulfa (Sulfonamide Antibiotics) Allergy (Mild, Verified 04/20/17 14:47) rash Past Medical History - Social History Chew tobacco use (# tins/day): No Frequency of alcohol use: None Drug Abuse: None - Past Medical History Cardiac Medical History: Denies: Hx Coronary Artery Disease, Hx Heart Attack, Hx Hypertension Pulmonary Medical History: Reports: Hx Asthma, Hx Bronchitis, Hx COPD, Hx Pneumonia Denies: Hx Tuberculosis Neurological Medical History: Denies: Hx Cerebrovascular Accident, Hx Seizures Endocrine Medical History: Denies: Hx Diabetes Mellitus Type 2 Renal/ Medical History: Reports: Hx Kidney Stones. Denies: Hx Peritoneal Dialysis Malignancy Medical History: Reports: Hx Lung Cancer - Stage IV lung cancer, treated by chemotherapy. Currently in remission. GI Medical History: Reports: Hx Ulcer Musculoskeltal Medical History: Reports Hx Arthritis Psychiatric Medical History: Reports: Hx Depression Infectious Medical History: Past Surgical History: Reports: Hx Appendectomy, Hx Hysterectomy, Hx Orthopedic Surgery - R knee, bilateral hands - Immunizations Hx Diphtheria, Pertussis, Tetanus Vaccination: Yes History of Influenza Vaccine for 03/2017 - 08/2017 Season: Yes Influenza Administration Date for 03/2017 - 08/2017 Season: 03/12/17 Physical Exam - Vital signs Vitals: Temp Pulse Resp BP Pulse Ox 98.7 F 92 18 102/59 L 95 04/20/17 14:35 04/20/17 14:35 04/20/17 14:35 04/20/17 14:35 04/20/17 14:35 Course - Vital Signs Vital signs: Temp Pulse Resp BP Pulse Ox 98.7 F 92 18 102/59 L 95 04/20/17 14:35 04/20/17 14:35 04/20/17 14:35 04/20/17 14:35 04/20/17 14:35
[2017-04-20 16:00] LABS: ALANINE AMINOTRANSFERASE 29 U/L (9-52); ALKALINE PHOSPHATASE 102 U/L (38-126); ANION GAP 13 (5-19); ASPARTATE AMINO TRANSFERASE 18 U/L (14-36); BILIRUBIN,DIRECT 0.3 mg/dL (0.0-0.4); BILIRUBIN,TOTAL 0.3 mg/dL (0.2-1.3); BLOOD UREA NITROGEN 31 mg/dL (7-20); CALCIUM 9.1 mg/dL (8.4-10.2); CARBON DIOXIDE 26 mmol/L (22-30); CHLORIDE 107 mmol/L (98-107); CREATINE KINASE 110 U/L (30-135); CREATININE RESULT 1.45 mg/dL (0.52-1.25); GLUCOSE 152 mg/dL (75-110); MAGNESIUM 1.9 mg/dL (1.6-2.3); POTASSIUM 3.9 mmol/L (3.6-5.0); SODIUM 146.2 mmol/L (137-145); TOTAL PROTEIN 7.1 g/dL (6.3-8.2)
[2017-04-20] MEDS ORDERED: NORMAL SALINE 1000 ML 1,000 ML IV PRN (16:30)
--- NOTE | 2017-04-20 16:34 | ER Document Report ---
ED General - General Chief Complaint: Abnormal Lab Results Stated Complaint: ABNORMAL LABS Time Seen by Provider: 04/20/17 14:54 Mode of Arrival: Medic Information source: Patient Notes: This is a 76-year-old female with a history of lung cancer who presents to the emergency room with dizziness, weakness and several falls at home. TRAVEL OUTSIDE OF THE [place] IN LAST 30 DAYS: No - HPI Onset: Last week Onset/Duration: Gradual Quality of pain: No pain Severity: None Pain Level: Denies Associated symptoms: Weakness. denies: Chest pain, Fever, Shortness of breath Exacerbated by: Denies Relieved by: Denies Similar symptoms previously: Yes Recently seen / treated by doctor: Yes - Related Data Allergies/Adverse Reactions: oxcarbazepine [From Trileptal] Allergy (Mild, Verified 04/20/17 14:47) rash Penicillins Allergy (Mild, Verified 04/20/17 14:47) rash Sulfa (Sulfonamide Antibiotics) Allergy (Mild, Verified 04/20/17 14:47) rash Home Medications: Current Home Medications Aliskiren Hemifumarate [Tekturna 300 mg Tablet] 300 mg PO DAILY 04/20/17 [ History] Carbamazepine [Tegretol 200 mg Tablet] 200 mg PO Q8 04/20/17 [History] Cetirizine HCl [Zyrtec 10 mg Chewable Tab] 10 mg PO DAILY 04/20/17 [History] Furosemide [Lasix 40 mg Tablet] 40 mg PO BID 04/20/17 [History] Gabapentin [Neurontin 300 mg Capsule] 300 mg PO Q12 04/20/17 [History] Isosorbide Mononitrate [Isosorbide Mononitrate ER] 30 mg PO DAILY 04/20/17 [ History] Lamotrigine [Lamictal 100 mg Tablet] 100 mg PO Q12 04/20/17 [History] Lansoprazole [Prevacid 30 mg Odt Tablet] 30 mg PO ACSUPPER 04/20/17 [History] Losartan Potassium [Cozaar 50 mg Tablet] 50 mg PO Q12 04/20/17 [History] Metformin HCl [Metformin HCl ER] 500 mg PO BIDACBS 04/20/17 [History] Methimazole [Tapazole] 10 mg PO DAILY 04/20/17 [History] Montelukast Sodium [Singulair 10 mg Tablet] 10 mg PO DAILY 04/20/17 [History] Oxycodone HCl/Acetaminophen [Percocet 5-325 mg Tablet] 1 tab PO Q12HP PRN [History] Rosuvastatin Calcium [Crestor] 40 mg PO DAILY 04/20/17 [History] Verapamil HCl [Calan 120 mg Tablet] 120 mg PO DAILY 04/20/17 [History] Past Medical History - General Information source: Patient - Social History Smoking Status: Never Smoker Cigarette use (# per day): No Chew tobacco use (# tins/day): No Frequency of alcohol use: None Drug Abuse: None Lives with: Family Family History: Reviewed & Not Pertinent Patient has suicidal ideation: No Patient has homicidal ideation: No - Past Medical History Cardiac Medical History: Denies: Hx Coronary Artery Disease, Hx Heart Attack, Hx Hypertension Pulmonary Medical History: Reports: Hx Asthma, Hx Bronchitis, Hx COPD, Hx Pneumonia Denies: Hx Tuberculosis Neurological Medical History: Denies: Hx Cerebrovascular Accident, Hx Seizures Endocrine Medical History: Denies: Hx Diabetes Mellitus Type 2 Renal/ Medical History: Reports: Hx Kidney Stones. Denies: Hx Peritoneal Dialysis Malignancy Medical History: Reports: Hx Lung Cancer - Stage IV lung cancer, treated by chemotherapy. Currently in remission. GI Medical History: Reports: Hx Ulcer Musculoskeltal Medical History: Reports Hx Arthritis Psychiatric Medical History: Reports: Hx Depression Infectious Medical History: Past Surgical History: Reports: Hx Appendectomy, Hx Hysterectomy, Hx Orthopedic Surgery - R knee, bilateral hands - Immunizations Hx Diphtheria, Pertussis, Tetanus Vaccination: Yes Hx Pneumococcal Vaccination: 04/12/13 Review of Systems - Review of Systems Constitutional: denies: Chills, Fever EENT: No symptoms reported Cardiovascular: See HPI Respiratory: No symptoms reported Gastrointestinal: No symptoms reported Genitourinary: No symptoms reported Female Genitourinary: No symptoms reported Musculoskeletal: No symptoms reported Skin: No symptoms reported Hematologic/Lymphatic: No symptoms reported Neurological/Psychological: See HPI Physical Exam - Vital signs Vitals: Temp Pulse Resp BP Pulse Ox 98.7 F 92 18 102/59 L 95 04/20/17 14:35 04/20/17 14:35 04/20/17 14:35 04/20/17 14:35 04/20/17 14:35 Notes: Physical exam: GENERAL: 76-year-old female, alert and oriented 3, generalized weakness. HEAD: Atraumatic, normocephalic. EYES: Pupils equal round and reactive to light, extraocular movements intact, sclera anicteric, conjunctiva are normal. ENT: TMs normal, nares patent, oropharynx clear without exudates. Moist mucous membranes. NECK: Normal range of motion, supple without obvious mass or JVD. LUNGS: Breath sounds clear to auscultation bilaterally and equal. No wheezes rales or rhonchi. HEART: Regular rate and rhythm without murmurs, rubs or gallops. ABDOMEN: Soft, normoactive bowel sounds. No tenderness to palpation. No guarding, no rebound. No masses appreciated. EXTREMITIES: Normal range of motion, no pitting or edema. No clubbing or cyanosis. NEUROLOGICAL: Cranial nerves II through XII grossly intact. Normal speech, moving all extremities. PSYCH: Normal mood, normal affect. SKIN: Warm, Dry, normal turgor, no rashes or lesions noted. Course - Vital Signs Vital signs: Temp Pulse Resp BP Pulse Ox 98.7 F 92 18 102/59 L 95 04/20/17 14:35 04/20/17 14:35 04/20/17 14:35 04/20/17 14:35 04/20/17 14:35 - Laboratory Result Diagrams: 04/20/17 16:50 04/20/17 15:15 Laboratory results interpreted by me: 04/20/17 04/20/17 15:15 16:50 RBC 2.72 L Hgb 8.8 L Hct 26.0 L RDW 16.9 H Eosinophils % 6.5 H Sodium 146.2 H BUN 31 H Creatinine 1.45 H Est GFR ( Amer) 43 L Est GFR (Non-Af Amer) 35 L Glucose 152 H - Diagnostic Test Radiology reviewed: Image reviewed, Reports reviewed - CT of the head shows no acute process - EKG Interpretation by Me Rate: Normal Rhythm: NSR - EKG shows normal sinus rhythm with a ventricular rate of 86, no acute ST-T wave changes Discharge - Discharge Clinical Impression: Generalized weakness, Dehydration Condition: Stable Disposition: ADMITTED INPATIENT Admitting Provider: Hospitalist Unit Admitted: Telemetry - Dr. Ramirez
[2017-04-20 17:34] LABS: ABSOLUTE EOSINOPHILS # (AUTO) 0.3 10^3/uL (0.0-0.6); ABSOLUTE MONOCYTES (AUTO) 0.4 10^3/uL (0.1-1.4); ABSOLUTE NEUT (AUTO) 3.1 10^3/uL (1.7-8.2); BASOPHILS % (AUTO) 0.9 % (0-2); EOSINOPHILS % (AUTO) 6.5 % (0-6); HEMOGLOBIN 8.8 g/dL (12.0-15.5); HGB HCT DIFFERENCE 0.4; MEAN CORPUSCULAR HEMOGLOBIN 32.3 pg (27.0-33.4); MEAN CORPUSCULAR HGB CONC 33.7 g/dL (32.0-36.0); RED BLOOD COUNT 2.72 10^6/uL (3.72-5.28); RED CELL DISTRIBUTION WIDTH 16.9 % (11.5-14.0); SEGMENTED NEUTROPHILS % (AUTO) 63.6 % (42-78); WHITE BLOOD COUNT 4.9 10^3/uL (4.0-10.5)
--- NOTE | 2017-04-20 17:43 | RADIOLOGY REPORT (SQ) ---
EXAM DESCRIPTION: CT HEAD WITHOUT COMPLETED DATE/TIME: 04/20/2017 5:33 pm REASON FOR STUDY: dizziness, falls COMPARISON: MRI from 11/24/2011 TECHNIQUE: Axial images acquired through the brain without intravenous contrast. Images reviewed wi th bone, brain and subdural windows. Images stored on PACS. All CT scanners at this facility use dose modulation, iterative reconstruction, and/or weight based d osing when appropriate to reduce radiation dose to as low as reasonably achievable (ALARA). [facility]: Dose Right [facility]: CareDose [facility]: Dose Right [facility]: Teradose 4D [facility]: [employer] RADIATION DOSE: Up-to-date CT equipment and radiation dose reduction techniques were employed. CTDIv ol: 63.0 mGy. DLP: 1163 mGy-cm. mGy. LIMITATIONS: None. FINDINGS: VENTRICLES: Prominent. CEREBRUM: No masses. No hemorrhage. No midline shift. Areas of low density in the white matter mos t likely due to chronic micro-vascular ischemic change. No evidence for acute infarction. CEREBELLUM: No masses. No hemorrhage. No alteration of density. No evidence for acute infarction. EXTRAAXIAL SPACES: Mild age-related involutional change. No fluid collections. No masses. ORBITS AND GLOBE: No intra- or extraconal masses. Normal contour of globe without masses. CALVARIUM: No fracture. PARANASAL SINUSES: No fluid or mucosal thickening. SOFT TISSUES: No mass or hematoma. OTHER: No other significant finding. IMPRESSION: MILD CHRONIC CHANGES OF ATROPHY AND MICROVASCULAR ISCHEMIA. NO ACUTE PROCESS. EVIDENCE OF ACUTE STROKE: NO. TECHNICAL DOCUMENTATION: JOB ID: [id number] Quality ID # [id number]: Final reports with documentation of one or more dose reduction techniques (e.g., Au tomated exposure control, adjustment of the mA and/or kV according to patient size, use of iterative reconstruction technique) 2010 [employer]- All Rights Reserved
[2017-04-20 18:03] LABS: MEAN CORPUSCULAR VOLUME 96 fl (80-97)
--- NOTE | 2017-04-20 18:24 | RADIOLOGY REPORT (SQ) ---
EXAM DESCRIPTION: CHEST SINGLE VIEW COMPLETED DATE/TIME: 04/20/2017 6:17 pm REASON FOR STUDY: dizzy COMPARISON: 07/26/2016 EXAM PARAMETERS: NUMBER OF VIEWS: One view. TECHNIQUE: Single frontal radiographic view of the chest acquired. RADIATION DOSE: NA LIMITATIONS: None. FINDINGS: LUNGS AND PLEURA: Stable postsurgical/ post treatment change left lung. No new opacities, pleural effusion, or pneumothorax. MEDIASTINUM AND HILAR STRUCTURES: No masses. Contour normal. HEART AND VASCULAR STRUCTURES: Heart stable in size. Normal vasculature. BONES: No acute findings. HARDWARE: Stable. OTHER: No other significant finding. IMPRESSION: NO ACUTE RADIOGRAPHIC FINDING IN THE CHEST. NO SIGNIFICANT CHANGE FROM PRIOR STUDY. TECHNICAL DOCUMENTATION: JOB ID: [id number] [employer]- All Rights Reserved
[2017-04-20] MEDS ORDERED: IPRATROPIUM/ALBUTEROL 0.5-2.5 MG/3 ML AMPUL NEB PRN (18:38)
[2017-04-20] MEDS ORDERED: ONDANSETRON 4 MG TAB.RAPDIS PO PRN (18:38)
[2017-04-20] MEDS ORDERED: ACETAMINOPHEN 325 MG TABLET PO PRN (18:38)
[2017-04-20] MEDS ORDERED: INSULIN LISPRO 100 UNIT/ML 3 ML VIAL SUBCUT PRN (18:45)
[2017-04-20] MEDS ORDERED: DEXTROSE 50%-WATER 25 GM/50 ML DISP.SYRIN IV PRN ×2 (18:45)
[2017-04-20] MEDS ORDERED: GLUCAGON,HUMAN RECOMB 1 MG INJ IM PRN (18:45)
[2017-04-20] MEDS ORDERED: DEXTROSE 40% GEL 15 GM TUBE PO PRN ×2 (18:45)
[2017-04-20 19:06] LABS: APPEARANCE,URINE CLEAR; BILIRUBIN,URINE NEGATIVE (NEGATIVE); GLUCOSE, URINE NEGATIVE (NEGATIVE); KETONES,URINE NEGATIVE (NEGATIVE); LEUKOCYTE ESTERASE,URINE NEGATIVE (NEGATIVE); NITRITE,URINE NEGATIVE (NEGATIVE); PROTEIN,URINE NEGATIVE (NEGATIVE); URINE SPECIFIC GRAVITY 1.008; UROBILINOGEN,URINE NEGATIVE mg/dL (<2.0)
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
[2017-04-20] MEDS ORDERED: DIAZEPAM 2 MG TABLET PO ONE (19:15)
--- NOTE | 2017-04-20 19:22 | EKG REPORT ---
SEVERITY:- BORDERLINE ECG - SINUS RHYTHM BORDERLINE T ABNORMALITIES, ANT-LAT LEADS : Confirmed by: Adam Lord MD 20-Apr-2017 19:21:38
[2017-04-20] MEDS ORDERED: ENOXAPARIN SODIUM INJ 40 MG/0.4 ML DISP.SYRIN SUBCUT ONE (20:00)
--- NOTE | 2017-04-20 21:57 | RADIOLOGY REPORT (SQ) ---
EXAM DESCRIPTION: MRI HEAD WITHOUT COMPLETED DATE/TIME: 04/20/2017 9:41 pm REASON FOR STUDY: vertigo COMPARISON: 11/24/2011 TECHNIQUE: Multiplanar imaging includes non-contrasted T1, T2, FLAIR, and diffusion with ADC map seq uences. Images stored on PACS. LIMITATIONS: None. FINDINGS: ANATOMY: No anomalies. Normal vascular flow voids. Pituitary fossa normal. CSF SPACES: Stable in size and contour. CEREBRUM: Stable lumbar of signal intensity lesions scattered throughout the white matter on FLAIR im aging with distribution suggesting micro-vascular ischemic changes. No evidence of hemorrhage, mass, or extraaxial fluid collection. POSTERIOR FOSSA: No signal alteration. No hemorrhage. No edema, masses or mass effect. Internal ondina tory canals, cerebello-pontine angles, mastoids normal. DIFFUSION IMAGING: Negative for acute or sub-acute infarction. ORBITS: No masses. Globes normal. PARANASAL SINUSES: No fluid levels. Mucosa normal. OTHER: No other significant finding. IMPRESSION: NO ACUTE ISCHEMIA, HEMORRHAGE, OR MASS LESION. NO SIGNIFICANT CHANGE COMPARED TO PRIOR STUDY. EVIDENCE OF ACUTE STROKE: NO. TECHNICAL DOCUMENTATION: JOB ID: [id number] [employer]- All Rights Reserved
[2017-04-20] MEDS: FAMOTIDINE 20 MG TABLET PO SCH (23:43)
[2017-04-20] MEDS: NORMAL SALINE 1000 ML 1,000 ML IV PRN (23:49)
[2017-04-20] MEDS: DIAZEPAM 2 MG TABLET PO SCH (23:52)
[2017-04-21] MEDS: DIAZEPAM 2 MG TABLET PO SCH ×3 (05:43→21:13)
[2017-04-21 06:10] LABS: HEMATOCRIT 22.4 % (36.0-47.0); HGB HCT DIFFERENCE 0.4; MEAN CORPUSCULAR HEMOGLOBIN 32.6 pg (27.0-33.4); MEAN CORPUSCULAR HGB CONC 34.1 g/dL (32.0-36.0); MEAN CORPUSCULAR VOLUME 96 fl (80-97); RED BLOOD COUNT 2.34 10^6/uL (3.72-5.28); RED CELL DISTRIBUTION WIDTH 17.6 % (11.5-14.0); WHITE BLOOD COUNT 4.4 10^3/uL (4.0-10.5)
[2017-04-21 06:34] LABS: ANION GAP 10 (5-19); BLOOD UREA NITROGEN 29 mg/dL (7-20); CALCIUM 8.5 mg/dL (8.4-10.2); CARBON DIOXIDE 24 mmol/L (22-30); CHLORIDE 114 mmol/L (98-107); CREATININE RESULT 1.27 mg/dL (0.52-1.25); GLUCOSE 88 mg/dL (75-110); POTASSIUM 3.8 mmol/L (3.6-5.0); SODIUM 147.9 mmol/L (137-145)
[2017-04-21 06:54] LABS: HEMOGLOBIN 7.6 g/dL (12.0-15.5)
[2017-04-21] MEDS: NORMAL SALINE 1000 ML 1,000 ML IV PRN (07:48)
[2017-04-21] MEDS ORDERED: FUROSEMIDE INJ/PF 20 MG/2 ML SDV IV PRN (08:19)
[2017-04-21] MEDS ORDERED: NORMAL SALINE 250 ML IV PRN ×2 (08:19)
[2017-04-21] MEDS: FAMOTIDINE 20 MG TABLET PO SCH ×2 (10:53→21:13)
[2017-04-21] MEDS: ENOXAPARIN SODIUM INJ 40 MG/0.4 ML DISP.SYRIN SUBCUT SCH (10:53)
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
[2017-04-21] MEDS: CARBAMAZEPINE 200 MG TABLET PO SCH (21:13)
[2017-04-21 23:44] LABS: ABSOLUTE EOSINOPHILS # (AUTO) 0.4 10^3/uL (0.0-0.6); ABSOLUTE LYMPHOCYTES (AUTO) 1.4 10^3/uL (0.5-4.7); ABSOLUTE MONOCYTES (AUTO) 0.5 10^3/uL (0.1-1.4); ABSOLUTE NEUT (AUTO) 3.3 10^3/uL (1.7-8.2); BASOPHILS % (AUTO) 0.6 % (0-2); EOSINOPHILS % (AUTO) 6.6 % (0-6); HEMATOCRIT 29.5 % (36.0-47.0); HEMOGLOBIN 10.2 g/dL (12.0-15.5); HGB HCT DIFFERENCE 1.1; LYMPHOCYTES % (AUTO) 24.1 % (13-45); MEAN CORPUSCULAR HEMOGLOBIN 32.8 pg (27.0-33.4); MEAN CORPUSCULAR HGB CONC 34.5 g/dL (32.0-36.0); MEAN CORPUSCULAR VOLUME 95 fl (80-97); MONOCYTES % (AUTO) 9.4 % (3-13); RED CELL DISTRIBUTION WIDTH 16.2 % (11.5-14.0); SEGMENTED NEUTROPHILS % (AUTO) 59.3 % (42-78); WHITE BLOOD COUNT 5.6 10^3/uL (4.0-10.5)
[2017-04-22] MEDS: DIAZEPAM 2 MG TABLET PO SCH (05:24)
[2017-04-22] MEDS: CARBAMAZEPINE 200 MG TABLET PO SCH (05:24)
[2017-04-22 06:22] LABS: ANION GAP 10 (5-19); BLOOD UREA NITROGEN 20 mg/dL (7-20); CALCIUM 9.1 mg/dL (8.4-10.2); CARBON DIOXIDE 25 mmol/L (22-30); CHLORIDE 112 mmol/L (98-107); GLUCOSE 82 mg/dL (75-110); SODIUM 146.9 mmol/L (137-145)
--- NOTE | 2017-04-22 08:40 | RADIOLOGY REPORT (SQ) ---
EXAM DESCRIPTION: U/S RETROPERITON (RENAL/AORTA) COMPLETED DATE/TIME: 04/22/2017 6:11 am REASON FOR STUDY: elroy N17.9 ACUTE KIDNEY FAILURE, UNSPECIFIED COMPARISON: None. TECHNIQUE: Dynamic and static grayscale images acquired of the kidneys and bladder and recorded on P ACS. Additional selected color Doppler and spectral images recorded. LIMITATIONS: None. FINDINGS: RIGHT KIDNEY: Normal size. Upper pole 3.3 cm cyst which looks simple. Midpole 2.5 cm cys t which looks simple. No solid mass, gross stones or obstruction. LEFT KIDNEY: Normal size. Normal echogenicity. No solid or suspicious masses. No hydronephrosis. No calcifications. BLADDER: Limited visualization. Partially decompressed. No gross mass. OTHER FINDINGS: No other significant finding. IMPRESSION: 1. Allowing for renal cysts, fairly unremarkable ultrasound. TECHNICAL DOCUMENTATION: JOB ID: [id number]- All Rights Reserved
[2017-04-22] MEDS: FAMOTIDINE 20 MG TABLET PO SCH (09:16)
[2017-04-22] MEDS: ENOXAPARIN SODIUM INJ 40 MG/0.4 ML DISP.SYRIN SUBCUT SCH (09:18)
[2017-04-22] MEDS ORDERED: MONTELUKAST SODIUM 10 MG TABLET PO SCH (10:00)
[2017-04-22] MEDS ORDERED: METHIMAZOLE 5 MG TABLET PO SCH (10:00)
[2017-04-22] MEDS ORDERED: (PENDING PHARMACY ID) (Methimazole [Tapazole] 10 MG) PO SCH (10:00)
--- NOTE | 2017-04-22 11:15 | PDOC DISCHARGE SUMMARY ---
General - Admit/Disc Date/PCP Admission Date/Primary Care Provider: 04/20/17 18:38 Discharge Date: 04/22/17 - Discharge Diagnosis (1) Dehydration Is this a current diagnosis for this admission?: Yes Summary: Resolved. (2) Acute on chronic renal failure Is this a current diagnosis for this admission?: Yes Summary: Patient's creatinine has returned to normal with IV fluids. (3) Vertigo Is this a current diagnosis for this admission?: Yes Summary: Most likely has benign positional vertigo. (4) COPD (chronic obstructive pulmonary disease) Is this a current diagnosis for this admission?: Yes (5) Diabetes mellitus Is this a current diagnosis for this admission?: Yes (6) Trigeminal neuralgia Is this a current diagnosis for this admission?: Yes Summary: The patient has been on multiple antiepileptics. She has been restarted back on Tegretol. Will restart the gabapentin and hold the other ones and add those back one at a time. (7) Lung cancer Is this a current diagnosis for this admission?: Yes (8) TOÑA (obstructive sleep apnea) Is this a current diagnosis for this admission?: Yes (9) Posttraumatic stress disorder Is this a current diagnosis for this admission?: Yes (10) Anemia Is this a current diagnosis for this admission?: Yes Summary: Patient received 2 units packed red blood cells. No evidence for active bleeding. This most likely is anemia of chronic disease. (11) Hypertension Is this a current diagnosis for this admission?: Yes Summary: We will continue with the verapamil and hold her other antihypertensives. - Additional Information Resuscitation Status: Full Code Discharge Diet: Cardiac, Diabetic Discharge Activity: Activity As Tolerated Home Medications: Carbamazepine [Tegretol 200 mg Tablet] 200 mg PO Q8 04/20/17 Cetirizine HCl [Zyrtec 10 mg Chewable Tab] 10 mg PO DAILY 04/20/17 Gabapentin [Neurontin 300 mg Capsule] 300 mg PO Q12 04/20/17 Isosorbide Mononitrate [Isosorbide Mononitrate ER] 30 mg PO DAILY 04/20/17 Lansoprazole [Prevacid 30 mg Odt Tablet] 30 mg PO ACSUPPER 04/20/17 Metformin HCl [Metformin HCl ER] 500 mg PO BIDACBS 04/20/17 Methimazole [Tapazole] 10 mg PO DAILY 04/20/17 Montelukast Sodium [Singulair 10 mg Tablet] 10 mg PO DAILY 04/20/17 Oxycodone HCl/Acetaminophen [Percocet 5-325 mg Tablet] 1 tab PO Q12HP PRN Rosuvastatin Calcium [Crestor] 40 mg PO DAILY 04/20/17 Verapamil HCl [Calan 120 mg Tablet] 120 mg PO DAILY 04/20/17 Diazepam [Valium 2 mg Tablet] 2 mg PO Q8 PRN #10 tablet 04/22/17 History of Present Illness History of Present Illness: TAINA MONTEJO is a 76 year old female who has a history of lung cancer and has had her last treatment 3 years ago who presents with complaints of decreased p.o. intake secondary to anorexia because of vertigo. Patient also reports having intermittent double vision. The patient also relates that she has had some fever and when asked how long she has been having fevers she states 2 years. The patient was hospitalized a month ago and had acute renal failure at that time. Her creatinine at the time of discharge was 1.75. Patient presented to the office was found to have a creatinine of 1.45 and was sent to the emergency room. The patient does relate having problems with intermittent vertigo and double vision but denies any weakness. She does have trouble walking because of the vertigo. Patient was admitted for IV fluids for treatment of the acute renal failure. Hospital Course Hospital Course: 76-year-old female who presented with difficulty walking. Patient was having some trouble with finger to nose an MRI was obtained which showed no evidence for any abnormalities. The patient most likely had benign positional vertigo as the cause for her symptoms. She was given Valium with good results. We will continue the Valium as needed. Patient also was noted to have acute on chronic renal failure. The patient's creatinine was 1.45 when she presented. She was evaluated by Dr. Elaine who obtained a renal ultrasound which was essentially unremarkable. Patient was given IV fluids with improvement in her creatinine. She also was noted to be anemic and was transfused 2 units packed red blood cells. This most likely represents anemia of chronic disease. The patient has had no further troubles and is felt that she is stable for discharge to home. The patient's family is interested in her going to assisted living and discharge planning is working on that. The patient also has hypertension and her verapamil was restarted however other medications were held. This may be contributing somewhat to her renal failure. Patient's losartan also was stopped as this could be a possible cause for elevated creatinine. Physical Exam Vital Signs: Temp Pulse Resp BP Pulse Ox 98.3 F 68 16 137/68 H 95 04/22/17 09:49 04/22/17 09:49 04/22/17 09:49 04/22/17 09:49 04/22/17 09:49 Intake & Output 04/21/17 04/22/17 04/23/17 06:59 06:59 06:59 Intake Total 950 Output Total 500 Balance 450 Weight 79.2 kg 79.2 kg General appearance: PRESENT: no acute distress Eye exam: PRESENT: conjunctiva pink. ABSENT: scleral icterus Mouth exam: PRESENT: moist, tongue midline Neck exam: ABSENT: JVD Respiratory exam: PRESENT: clear to auscultation russell. ABSENT: rales, rhonchi, wheezes Cardiovascular exam: PRESENT: RRR. ABSENT: diastolic murmur, rubs, systolic murmur GI/Abdominal exam: PRESENT: normal bowel sounds, soft. ABSENT: distended, guarding, mass, organolmegaly, rebound, tenderness Extremities exam: PRESENT: full ROM. ABSENT: calf tenderness, clubbing, pedal edema Neurological exam: PRESENT: alert, awake, oriented to person, oriented to place , oriented to time, oriented to situation, CN II-XII grossly intact. ABSENT: motor sensory deficit Psychiatric exam: PRESENT: appropriate affect Skin exam: PRESENT: dry, intact, warm. ABSENT: cyanosis, rash Results Laboratory Results: 04/21/17 21:16 04/22/17 05:25 04/21/17 04/22/17 21:16 05:25 WBC 5.6 RBC 3.10 L Hgb 10.2 L D Hct 29.5 L MCV 95 MCH 32.8 MCHC 34.5 RDW 16.2 H Plt Count 169 Seg Neutrophils % 59.3 Lymphocytes % 24.1 Monocytes % 9.4 Eosinophils % 6.6 H Basophils % 0.6 Absolute Neutrophils 3.3 Absolute Lymphocytes 1.4 Absolute Monocytes 0.5 Absolute Eosinophils 0.4 Absolute Basophils 0.0 Sodium 146.9 H Potassium 4.0 Chloride 112 H Carbon Dioxide 25 Anion Gap 10 BUN 20 Creatinine 1.10 Est GFR ( Amer) 59 L Est GFR (Non-Af Amer) 49 L Glucose 82 Calcium 9.1 Impressions: Chest X-Ray 04/20/17 16:30 IMPRESSION: NO ACUTE RADIOGRAPHIC FINDING IN THE CHEST. NO SIGNIFICANT CHANGE FROM PRIOR STUDY. Head CT 04/20/17 16:31 IMPRESSION: MILD CHRONIC CHANGES OF ATROPHY AND MICROVASCULAR ISCHEMIA. NO ACUTE PROCESS. EVIDENCE OF ACUTE STROKE: NO. Head MRI 04/20/17 18:45 IMPRESSION: NO ACUTE ISCHEMIA, HEMORRHAGE, OR MASS LESION. NO SIGNIFICANT CHANGE COMPARED TO PRIOR STUDY. EVIDENCE OF ACUTE STROKE: NO. Renal Ultrasound 04/22/17 00:00 IMPRESSION: 1. Allowing for renal cysts, fairly unremarkable ultrasound. Qualifiers PATEINT BEING DISCHARGED WITH ANY OF THE FOLLOWING DIAGNOSIS?: No Plan Discharge Plan: Follow-up with primary care in 2 weeks. Time Spent: Greater than 30 Minutes
[2017-04-22 12:17] VITALS: BP 138/63
== END 2017-04-22 13:31 | disposition home or self-care (01) ==
LOC: ER 14:28 → EH 18:38 → INTOOBSV 19:35 → EH 19:35 → UNDOADMOB 19:35 → 4N 22:45
PROVIDERS: ADMIT Internal Medicine; ATTEND Internal Medicine
PROC: 30243N1 Transfusion of Nonautologous Red Blood Cells into Central Vein, Percutaneous Approach (ICD-10-PCS; principal; 2017-04-21)
DX: E86.0 Dehydration (principal); I12.9 Hypertensive chronic kidney disease with stage 1 through stage 4 chronic kidney disease, or unspecified chronic kidney disease; E11.22 Type 2 diabetes mellitus with diabetic chronic kidney disease; N18.9 Chronic kidney disease, unspecified; N17.9 Acute kidney failure, unspecified; J44.9 Chronic obstructive pulmonary disease, unspecified; G50.0 Trigeminal neuralgia; C34.90 Malignant neoplasm of unspecified part of unspecified bronchus or lung; G47.33 Obstructive sleep apnea (adult) (pediatric); F43.10 Post-traumatic stress disorder, unspecified; R42 Dizziness and giddiness; X58.XXXS Exposure to other specified factors, sequela; H91.8X2 Other specified hearing loss, left ear; D50.9 Iron deficiency anemia, unspecified; R63.0 Anorexia; H53.2 Diplopia; N63.0 Unspecified lump in unspecified breast; R53.81 Other malaise; H93.19 Tinnitus, unspecified ear; R29.6 Repeated falls; Z85.118 Personal history of other malignant neoplasm of bronchus and lung; Z79.899 Other long term (current) drug therapy; Z79.84 Long term (current) use of oral hypoglycemic drugs; Z86.19 Personal history of other infectious and parasitic diseases; Z92.21 Personal history of antineoplastic chemotherapy; Z90.49 Acquired absence of other specified parts of digestive tract; Z80.1 Family history of malignant neoplasm of trachea, bronchus and lung; Z87.891 Personal history of nicotine dependence; Z83.3 Family history of diabetes mellitus; Z84.1 Family history of disorders of kidney and ureter; Z91.81 History of falling; Z68.30 Body mass index [BMI] 30.0-30.9, adult
CPT/HCPCS: 93005; 99285; 86900; 86901; 36415 ×3; 82553; 36430; 86850; 82962 ×2; 82550; 83735; 84100; 84443; 85025 ×2; 85027; 80048 ×2; 80053; 81001; 84484; 86920; 70551; 71010; 76770; 70450; 93010; 94660; P9016; A9270 ×11; J1650 ×2; J3490 ×3; J7030 ×2; J1815

== ENCOUNTER → 2017-06-09 | Outpatient (CLI) | payer MEDICARE, MEDICAID ==
--- NOTE | 2017-06-09 11:10 | RADIOLOGY REPORT (SQ) ---
EXAM DESCRIPTION: CT CHEST WITH; CT ABD/PELVIS WITH IV ONLY COMPLETED DATE/TIME: 06/09/2017 9:21 am REASON FOR STUDY: LUNG CA (C34.12) C34.12 MALIGNANT NEOPLASM OF UPPER LOBE, LEFT BRONCHUS OR CAROLE COMPARISON: PET-CT 08/01/2014 CT chest abdomen and pelvis 10/27/2014, 03/10/2016, 07/08/2016, 02/17/2017, 04/17/2017 CONTRAST TYPE AND DOSE: contrast/concentration: Isovue 370.00 mg/ml; Total Contrast Delivered: 85.0 ml; Total Saline Delivered: 69.0 ml RENAL FUNCTION: Creatinine 0.9 TECHNIQUE: CT scan of the chest performed using helical scanning technique with dynamic intravenous contrast injection. Images reviewed with lung, soft tissue and bone windows. Reconstructed coronal a nd sagittal MPR images reviewed. All images stored on PACS. CT scan of the abdomen and pelvis performed with intravenous and without oral contrastusing helical s ceferino technique with dynamic intravenous contrast injection. Images reviewed with lung, soft tissu e and bone windows. Reconstructed coronal and sagittal MPR images reviewed. Delayed images for eval uation of the urinary system also acquired and evaluated. All images stored on PACS. All CT scanners at this facility use dose modulation, iterative reconstruction, and/or weight based d osing when appropriate to reduce radiation dose to as low as reasonably achievable (ALARA). [facility]: Dose Right [facility]: CareDose [facility]: Dose Right [facility]: Teradose 4D [facility]: Smart zerved RADIATION DOSE: CT Rad equipment meets quality standard of care and radiation dose reduction techniq ues were employed. CTDIvol: 9.2 - 10.5 mGy. DLP: 1385 mGy-cm. . LIMITATIONS: None. FINDINGS: CHEST: LUNGS AND PLEURA: Radiotherapy treatment markers are present in the left upper lobe with adjacent sta ble bandlike scarring measuring 4.4 x 1.7 cm on axial image 27. No acute infiltrates. No pleural effusion. No pneumothorax. No worrisome pulmonary nodules. Subcentimeter noncalcified nodule in the left lower lobe axial image 31, less than 5 mm noncalcified granuloma left posterior costophrenic sulcus image 34, less than 5 m m noncalcified granuloma right lower lobe image 37 are all unchanged compared to studies dating back to 2014 HILAR AND MEDIASTINAL STRUCTURES: No identified masses or abnormal nodes. HEART AND VASCULAR STRUCTURES: No aneurysm or dissection. No central pulmonary emboli. No pericardi al effusion. Very heavy LAD calcification HARDWARE: None. Left permanent central line tip superior vena cava THYROID AND OTHER SOFT TISSUES: Enlarged right lobe thyroid stable over the series of exams BONES: No significant finding. OTHER: No other significant finding. ABDOMEN AND PELVIS: LIVER: Normal size. No masses. No dilated ducts. SPLEEN: Normal size. No focal lesions. PANCREAS: No masses. No significant calcifications. No adjacent inflammation or peripancreatic fluid collections. Pancreatic duct not dilated. GALLBLADDER: No identified stones by CT criteria. No inflammatory changes to suggest cholecystitis. ADRENAL GLANDS: No significant masses or asymmetry. RIGHT KIDNEY AND URETER: No solid masses. No significant calcification. No hydronephrosis or hydroure ter. 3.5 cm right upper pole, 1.6 cm right midpole cyst. 2.4 cm right midpole cyst is decreased in size compared to 2015 when measured 5.4 cm. LEFT KIDNEY AND URETER: No solid masses. No significant calcification. No hydronephrosis or hydrouret er. 1.8 cm left midpole renal cortical cyst. AORTA AND VESSELS: No aneurysm. No dissection. Renal arteries, SMA, celiac without stenosis. RETROPERITONEUM: No retroperitoneal adenopathy, hemorrhage or masses. BOWEL AND PERITONEAL CAVITY: No masses or inflammatory changes. No free fluid or peritoneal masses. Large amount of stool throughout the colon. Mobile cecum, cecum is in the midline abdomen APPENDIX: Surgically absent ABDOMINAL WALL: No masses. No hernias. BONES: No significant or acute findings. PELVIS: No other significant finding. Post hysterectomy. No free pelvic fluid. No adenopathy. IMPRESSION: No CT evidence of metastatic disease to the chest abdomen or pelvis given history of michel g cancer Stable left upper lobe bandlike scarring post radiation therapy. TECHNICAL DOCUMENTATION: JOB ID: [id number] Quality ID # [id number]: Final reports with documentation of one or more dose reduction techniques (e.g., Au tomated exposure control, adjustment of the mA and/or kV according to patient size, use of iterative reconstruction technique) 2010 [employer]- All Rights Reserved
== END ==
LOC: RAD 08:19
PROVIDERS: ATTEND Internal Medicine
DX: C34.12 Malignant neoplasm of upper lobe, left bronchus or lung (principal)
CPT/HCPCS: 71260; 74177